=== PATIENT | female | born 1955 | race Caucasian/White ===

== ENCOUNTER 2021-01-30 13:45 | Outpatient (CLI) | payer MEDICARE, OTHER ==
[~2021-01-30 13:45] MED LIST: KETOROLAC TROMETHAMINE 15 MG/ML VIAL ONE
[2021-01-30] MEDS ORDERED: SPIR25TA PO (15:52)
[2021-01-30] MEDS ORDERED: ASPI-1420 PO (15:52)
[2021-01-30] MEDS ORDERED: ACET-868 PO (15:52)
[2021-01-30] MEDS ORDERED: LISI-768 PO (15:53)
[2021-01-30] MEDS ORDERED: BISA10SU11 RC (15:53)
[2021-01-30] MEDS ORDERED: GABA-532 PO (15:53)
[2021-01-30] MEDS ORDERED: METF-440 PO (15:53)
[2021-01-30] MEDS ORDERED: ENOX30DI SQ (15:53)
[2021-01-30] MEDS ORDERED: PANT40TA2 PO (15:53)
[2021-01-30] MEDS ORDERED: INSU100V42 SQ (15:53)
[2021-01-30] MEDS ORDERED: POLY17PO4 PO (15:53)
[2021-01-30] MEDS ORDERED: MULT-447 PO (15:53)
[2021-01-30] MEDS ORDERED: HYDR-4209 PO (15:53)
[2021-01-30] MEDS ORDERED: FURO-144 PO (15:53)
[2021-01-30] MEDS ORDERED: INSU100V7 SQ (15:53)
[2021-01-30] MEDS ORDERED: LEVO25TA9 PO (15:53)
[2021-01-30] MEDS ORDERED: HYDR-3980 PO (15:53)
[2021-01-30] MEDS ORDERED: DOCU-141 PO (15:53)
[2021-02-06] MEDS ORDERED: VANC750F2 IV (09:18)
== END 2021-01-30 23:59 | disposition home or self-care (01) ==
LOC: WOU 13:45
PROVIDERS: ATTEND Podiatrist Foot & Ankle Surgery
DX: T81.89XA Other complications of procedures, not elsewhere classified, initial encounter (principal); L97.315 Non-pressure chronic ulcer of right ankle with muscle involvement without evidence of necrosis; L97.512 Non-pressure chronic ulcer of other part of right foot with fat layer exposed; L97.322 Non-pressure chronic ulcer of left ankle with fat layer exposed; E11.42 Type 2 diabetes mellitus with diabetic polyneuropathy; L03.116 Cellulitis of left lower limb; L03.115 Cellulitis of right lower limb; M86.272 Subacute osteomyelitis, left ankle and foot; M86.271 Subacute osteomyelitis, right ankle and foot; R60.0 Localized edema; Z79.4 Long term (current) use of insulin
CPT/HCPCS: 11042; 11043; J1885

== ENCOUNTER 2021-01-30 15:11 | Inpatient (IN) | payer MEDICARE, OTHER ==
[~2021-01-30] VITALS: Ht 157.5 cm; Wt 109.8 kg
--- NOTE | 2021-01-30 15:40 | NUR ---
PT SENT BY DR. JENKINS FOR BILAT FOOT CELLULITIS. PT WAS NOTED WITH BILAT LOWER EXTREMETIES SWELLING. NOTED WOUND ON THE R FOOT DORSAL ASPECT AND L FOOT NOTED WITH WOUNDS ON DORSAL ASPECT AND EXT MALLELOUS AREA. WAS AT THE BEDSIDE FOR EVAL. ORDERS RECEIVED, NOTED AND CARRIED OUT
--- NOTE | 2021-01-30 15:45 | NUR ---
US AT BEDSIDE.
--- NOTE | 2021-01-30 15:51 | NUR ---
COVID SWAB DONE AND SENT TO LAB
[2021-01-30] MEDS ORDERED: ASPI-1420 PO (15:52)
[2021-01-30] MEDS ORDERED: SPIR25TA PO (15:52)
[2021-01-30] MEDS ORDERED: ACET-868 PO (15:52)
[2021-01-30] MEDS ORDERED: METF-440 PO (15:53)
[2021-01-30] MEDS ORDERED: HYDR-3980 PO (15:53)
[2021-01-30] MEDS ORDERED: LISI-768 PO (15:53)
[2021-01-30] MEDS ORDERED: HYDR-4209 PO (15:53)
[2021-01-30] MEDS ORDERED: DOCU-141 PO (15:53)
[2021-01-30] MEDS ORDERED: GABA-532 PO (15:53)
[2021-01-30] MEDS ORDERED: LEVO25TA9 PO (15:53)
[2021-01-30] MEDS ORDERED: POLY17PO4 PO (15:53)
[2021-01-30] MEDS ORDERED: INSU100V42 SQ (15:53)
[2021-01-30] MEDS ORDERED: PANT40TA2 PO (15:53)
[2021-01-30] MEDS ORDERED: BISA10SU11 RC (15:53)
[2021-01-30] MEDS ORDERED: INSU100V7 SQ (15:53)
[2021-01-30] MEDS ORDERED: MULT-447 PO (15:53)
[2021-01-30] MEDS ORDERED: FURO-144 PO (15:53)
[2021-01-30] MEDS ORDERED: ENOX30DI SQ (15:53)
[2021-01-30 16:20] LABS: BASOPHILS % (AUTO) 0.9 % (0.0-2.0); EOSINOPHILS % (AUTO) 2.6 % (0.0-6.0); HEMATOCRIT 27 % (33-45); HEMOGLOBIN 8.5 g/dL (11.5-14.8); LYMPHOCYTES # (AUTO) 1.1 /CMM (0.8-4.8); LYMPHOCYTES % (AUTO) 22.8 % (20.0-44.0); MEAN CORPUSCULAR HGB CONC 31 g/dl (31.0-36.0); MEAN CORPUSCULAR VOLUME 78 fL (82-100); MONOCYTES # (AUTO) 0.4 /CMM (0.1-1.30); MONOCYTES % (AUTO) 8.8 % (2.0-12.0); NEUTROPHILS # (AUTO) 3.1 /CMM (1.8-8.9); NEUTROPHILS % (AUTO) 64.9 % (43.0-81.0); PLATELET COUNT (AUTO) 133 /CMM (150-450); WHITE BLOOD COUNT (AUTO) 4.7 K/uL (4.3-11.0)
[2021-01-30] MEDS ORDERED: VANCOMYCIN 1 GM VIAL ONE (16:22)
[2021-01-30] MEDS ORDERED: PIPERACILLIN /TAZOBACTAM 3.375 G VIAL IV ONE (16:22)
[2021-01-30] MEDS ORDERED: PIPERACILLIN /TAZOBACTAM 3.375 G in IV D5W 50 ML IV ONE (16:30)
[2021-01-30] MEDS ORDERED: IV NS 0.9% 1,000 ML BAG IV ONE (16:30)
[2021-01-30] MEDS ORDERED: VANCOMYCIN 1 GM in IV D5W 250 ML IV ONE (16:30)
--- NOTE | 2021-01-30 16:38 | NUR ---
BACK FROM RADIOLOGY
[2021-01-30 16:50] LABS: CALCIUM, SERUM 8.1 mg/dL (8.5-10.1); CREATININE 0.8 mg/dL (0.6-1.3); POTASSIUM 4.1 mmol/L (3.5-5.1)
--- NOTE | 2021-01-30 16:58 | NUR ---
PAGED [facility].
[2021-01-30] MEDS ORDERED: BISACODYL SUPP (10 MG) 10 MG/SUPP.RECT SUPP.RECT RC PRN (18:00)
[2021-01-30] MEDS ORDERED: MAG HYDROX/AL HYDROX/SIMETH 30 ML UDC PO PRN (18:00)
[2021-01-30] MEDS ORDERED: DEXTROSE 50%-WATER 50 ML DISP.SYRIN IV PRN (18:00)
[2021-01-30] MEDS ORDERED: Z GUARD REMEDY 2 OZ OINT TP PRN (18:00)
[2021-01-30] MEDS ORDERED: HYDROCODONE/APAP 5/325MG TABLET PO PRN (18:00)
[2021-01-30] MEDS ORDERED: ACETAMINOPHEN 325 MG TABLET PO PRN ×2 (18:00)
[2021-01-30] MEDS ORDERED: MAGNESIUM HYDROXIDE 30 ML UDC PO PRN (18:00)
--- NOTE | 2021-01-30 18:18 | NUR ---
REPORT GIVEN TO TEO YEN FOR MALVIN
--- NOTE | 2021-01-30 18:59 | NUR ---
PATIENT TRANSFERRED TO ROOM 307 VIA ACLS PROTOCOL. IN NO DISTRESS.
[2021-01-30 20:00] VITALS: BP 128/78
--- NOTE | 2021-01-30 21:04 | NUR ---
MS/TELE/RN AT INITIAL SHIFT ROUNDING AT 1930, RECEIVED PATIENT IN BED AWAKE, ALERT, ORIENTED, COMFORTABLE, NO C/O PAIN, NO DISTRESS NOTED. AT 1999, ADMISSION DONE, INFORMATIONS OBTAINED FROM THE PATIENT, PHYSICAL ASSESSMENT DONE, PHOTOS TAKEN ON WOUNDS AND RASHES WITH THE PATIENT'S CONSENT, PLAN OF CARE DISCUSSED WITH THE PATIENT AND VERBALISED UNDERSTANDING AND AGREEMENT TO THE PLAN, FALL PRECAUTIONS IMPLEMENTED PER PROTOCOL, TAUGHT THE PATIENT HOW TO USE THE CALL LIGHT AND PLACED IT AT BEDSIDE WITHIN REACH, ENCOURAGED PATIENT TO CALL FOR ANY ASSISTANCE FOR SAFETY. PATIENT WAS SEEN BY ISAURA JENKINS NP. WILL MONITOR.
[2021-01-30] MEDS ORDERED: PIPERACILLIN /TAZOBACTAM 3.375 G in IV D5W 100 ML IV SCH (22:00)
[2021-01-30] MEDS: CEFEPIME 2 GM in IV D5W 100 ML IV SCH (22:03)
[2021-01-30] MEDS: BLOOD SUGAR DIAGNOSTIC 1 EACH STRIP IN SCH (22:05)
[2021-01-30] MEDS: ENOXAPARIN SODIUM 40 MG/0.4 ML DISP.SYRIN SQ SCH (22:09)
[2021-01-30] MEDS: INSULIN GLARGINE, 100 UNIT/ML CARTRIDGE SQ SCH (22:34)
--- NOTE | 2021-01-31 00:43 | NUR ---
MS/TELE/RN PATIENT IS SLEEPING AT THIS TIME, APPEAR COMFORTABLE, NO SIGNS OF DISTRESS NOTED, CALL LIGHT IN REACH, WILL CONTINUE TO MONITOR.
--- NOTE | 2021-01-31 01:58 | NUR ---
RT NOTE PT REFUSED EKG AT THIS TIME. PT WANTS TO SLEEP. TEO MCNEIL NOTIFIED AND IS AWARE.
[2021-01-31 05:59] LABS: BASOPHILS % (AUTO) 1.1 % (0.0-2.0); EOSINOPHILS % (AUTO) 2.5 % (0.0-6.0); HEMATOCRIT 24 % (33-45); HEMOGLOBIN 7.8 g/dL (11.5-14.8); LYMPHOCYTES # (AUTO) 0.7 /CMM (0.8-4.8); LYMPHOCYTES % (AUTO) 24.7 % (20.0-44.0); MEAN CORPUSCULAR HGB CONC 32 g/dl (31.0-36.0); MEAN CORPUSCULAR VOLUME 78 fL (82-100); MONOCYTES # (AUTO) 0.3 /CMM (0.1-1.30); MONOCYTES % (AUTO) 10.1 % (2.0-12.0); NEUTROPHILS # (AUTO) 1.8 /CMM (1.8-8.9); NEUTROPHILS % (AUTO) 61.6 % (43.0-81.0); PLATELET COUNT (AUTO) 103 /CMM (150-450); WHITE BLOOD COUNT (AUTO) 2.9 K/uL (4.3-11.0)
[2021-01-31] MEDS: VANCOMYCIN 1 GM in IV D5W 250ml IV SCH ×2 (06:04→17:22)
[2021-01-31] MEDS: INSULIN REGULAR, HUMAN 100 UNIT/ML 3 ML VIAL SQ PRN ×3 (06:40→17:16)
[2021-01-31] MEDS: BLOOD SUGAR DIAGNOSTIC 1 EACH STRIP IN SCH ×4 (06:41→21:40)
--- NOTE | 2021-01-31 06:52 | NUR ---
MS/TELE/RN PATIENT APPEAR SLEEPING AT THIS TIME, APPEAR COMFORTABLE, NO SIGNS OF DISTRESS NOTED, CALL LIGHT IN REACH, ALL NEEDS ATTENDED AT THIS TIME, WILL CONTINUE TO MONITOR.
[2021-01-31 07:00] LABS: ALBUMIN 1.5 g/dL (3.4-5.0); BILIRUBIN,TOTAL 1.2 mg/dL (0.2-1.0); CALCIUM, SERUM 7.8 mg/dL (8.5-10.1); CREATININE 0.7 mg/dL (0.6-1.3); MAGNESIUM 1.9 mg/dL (1.8-2.4); PHOSPHORUS 3.7 mg/dL (2.5-4.9); POTASSIUM 4.4 mmol/L (3.5-5.1)
[2021-01-31] MEDS: PANTOPRAZOLE 40 MG TABLET.DR PO SCH (07:13)
[2021-01-31] MEDS: LEVOTHYROXINE SODIUM 25 MCG TABLET PO SCH (07:17)
[2021-01-31 07:24] LABS: THYROID STIMULATING HORMONE 3.347 uIU/mL (0.358-3.74)
--- NOTE | 2021-01-31 07:24 | NUR ---
MS RN OPENING NOTES PATIENT RECEIVED AWAKE IN BED IN NO ACUTE SIGNS OF DISTRESS. HOB ELEVATED. A/O X4. ABLE TO MAKE NEEDS KNOWN, DENIES PAIN OR ANY DISCOMFORTS AT THIS TIME. ON ROOM AIR, BREATHING EVEN AND UNLABORED. DOUBLE LUMEN ILA PICC LINE INTACT, PATENT AND FLUSHES WELL. SAFETY MEASURES IN PLACE: CALL LIGHT WITHIN REACH, BED IN LOCKED AND LOWEST POSITION, SIDE RAILS UP X2. ENCOURAGED PATIENT TO CALL WHEN FOR ASSISTANCE. WILL MONITOR PATIENT ACCORDINGLY
[2021-01-31 08:00] VITALS: BP 114/58
[2021-01-31] MEDS: GABAPENTIN 100 MG CAPSULE PO SCH ×2 (08:45→16:40)
[2021-01-31] MEDS: METFORMIN 500 MG TABLET PO SCH ×2 (08:45→16:40)
[2021-01-31] MEDS: FUROSEMIDE 40 MG TABLET PO SCH (08:45)
[2021-01-31] MEDS: DOCUSATE SODIUM 100 MG CAPSULE PO SCH ×2 (08:45→16:39)
[2021-01-31] MEDS: SPIRONOLACTONE 25 MG TABLET PO SCH (08:45)
[2021-01-31] MEDS: LISINOPRIL (5MG) 5 MG TABLET PO SCH ×2 (08:46→16:40)
[2021-01-31] MEDS: POLYETHYLENE GLYCOL 3350 17 GM POWD.PACK PO SCH (08:46)
[2021-01-31] MEDS: ASPIRIN EC 81 MG TABLET.DR PO SCH (08:52)
[2021-01-31] MEDS: CEFEPIME 2 GM in IV D5W 100 ML IV SCH ×2 (08:53→20:33)
[2021-01-31] MEDS ORDERED: ENOXAPARIN SODIUM 30 MG/0.3 ML DISP.SYRIN SQ SCH (09:00)
[2021-01-31] MEDS ORDERED: CEFEPIME 2 GM in IV D5W 100 ML IV SCH (09:00)
--- NOTE | 2021-01-31 10:08 | NUR ---
WOUND CARE CONSULT: PT PRESENTS WITH DRY INTACT DRESSINGS TO BILATERAL FEET/LOWER LEGS, PRESENT ON ADMISSION. LOWER EXTREMITY WOUND PHOTOS IN CHART, PRESENT ON ADMISSION. PT AWAITING VISIT BY DR LEMONS. DR LEMONS NOTIFIED OF PT ROOM NUMBER. PT PRESENTS WITH RASH TO ABDOMINAL/GROIN FOLDS AND PERINEUM, PRESENT ON ADMISSION. RECOMMENDATIONS MADE FOR SKIN PROTECTION. DISCUSSED WITH NURSING STAFF. MD IN AGREEMENT WITH PLAN OF CARE.
[2021-01-31 16:00] VITALS: BP 102/56
--- NOTE | 2021-01-31 16:07 | NUR ---
RN NOTES WOUND SPECIMENS FOR BILATERAL FEET WOUNDS COLLECTED AND CALLED LAB TO PICK-UP THEM UP.
[2021-01-31] MEDS: CLOTRIMAZOLE 1% 15 GM TUBE TP SCH (16:45)
--- NOTE | 2021-01-31 18:50 | NUR ---
MS RN CLOSING NOTES PATIENT RESTING IN BED AND WATCHING TV AT THIS TIME. A/O X4. ABLE TO MAKE NEEDS KNOWN. TOLERATING ROOM AIR WITH NO ACUTE RESPIRATORY DISTRESS NOTED DURING SHIFT. DOUBLE LUMEN ILA PICC LINE INTACT, PATENT AND FLUSHES WELL. DRESSING ON B/L FEET C/D/I. SAFETY MEASURES KEPT IN PLACE: CALL LIGHT WITHIN REACH, BED IN LOCKED AND LOWEST POSITION, SIDE RAILS UP X2. CALL LIGHT AND BEDSIDE TABLE W/IN EASY REACH OF PT. ENCOURAGED PATIENT TO CALL FOR ANY ASSISTANCE. ALL NEEDS AND CARE ATTENDED WELL. WILL ENDORSE MALVIN TO TECHNICAL BUYER NURSE.
--- NOTE | 2021-01-31 19:30 | NUR ---
MS RN OPENING NOTES RECEIVED PATIENT IN BED, ASLEEP NOT IN ANY FORM OF ACUTE DISTRESS NOTED. ON ROOM AIR TOLERATING WELL, NO ACUTE RESPIRATORY DISTRESS NOTED. WITH DOUBLE LUMEN ILA PICC LINE INTACT, PATENT AND FLUSHES WELL, NO REDNESS NOTED. DRESSING ON B/L FEET NOTED, DRY AND INTACT. SAFETY MEASURES OBSERVED: CALL LIGHT WITHIN EASY REACH, BED IN LOCKED AND LOWEST POSITION, SIDE RAILS UP X2. CALL LIGHT AND BEDSIDE TABLE W/IN EASY REACH OF PT. NO COMPLAINTS OF PAIN AT THIS TIME. WILL CONTINUE TO MONITOR PATIENT'S STATUS.
[2021-01-31 20:00] VITALS: BP 108/56
[2021-01-31 20:01] VITALS: BP 108/56
[2021-01-31] MEDS: ENOXAPARIN SODIUM 40 MG/0.4 ML DISP.SYRIN SQ SCH (20:35)
[2021-01-31] MEDS: INSULIN GLARGINE, 100 UNIT/ML CARTRIDGE SQ SCH (21:39)
--- NOTE | 2021-01-31 21:40 | NUR ---
RN NOTES CHECKED PATIENT'S BLOOD SUGAR ORDERED. RESULT OF 134, DUE INSULIN GLARGINE GIVEN ORDERED.
[2021-02-01 02:00] VITALS: BP 113/64
--- NOTE | 2021-02-01 06:38 | NUR ---
MS RN CLOSING NOTES PATIENT IN BED, AWAKE, A&O X 4. ABLE TO LET NEEDS KNOWN, TOLERATING ROOM AIR, PICC LINE ON ILA INTACT AND FLUSHES WELL. SAFETY PRECAUTIONS OBSERVED AND MAINTAINED DURING THE SHIFT. CALL LIGHT WITHIN EASY REACH, SIDE RAILS UP X 2. NEEDS ATTENDED AND MET. DUE MEDS GIVEN ORDERED. NO COMPLAINTS OF PAIN AT THIS TIME. STILL AWAITING FOR VANCO TROUGH RESULT. ENDORSED TO MORNING SHIFT NURSE FOR MALVIN.
[2021-02-01] MEDS: LEVOTHYROXINE SODIUM 25 MCG TABLET PO SCH (07:07)
[2021-02-01 07:12] LABS: CALCIUM, SERUM 7.5 mg/dL (8.5-10.1); CREATININE 0.8 mg/dL (0.6-1.3); POTASSIUM 3.9 mmol/L (3.5-5.1)
--- NOTE | 2021-02-01 07:14 | NUR ---
MS RN OPENING NOTES RECEIVED PATIENT AWAKE IN BED. HOB ELEVATED. A/O X4, ABLE TO MAKE NEEDS KNOWN, DENIES PAIN OR ANY DISCOMFORTS AT THIS TIME. ON ROOM AIR, BREATHING EVEN AND UNLABORED, NO SOB NOTED. DOUBLE LUMEN ILA PICC LINE INTACT, PATENT AND FLUSHES WELL. SAFETY MEASURES IN PLACE: BED LOCKED AND LOWEST POSITION, SIDE RAILS UP X2. CALL LIGHT WITHIN EASY REACH OF PT. ENCOURAGED PATIENT TO USE CALL LIGHT FOR ASSISTANCE. WILL CONTINUE TO MONITOR PATIENT ACCORDINGLY
[2021-02-01] MEDS: VANCOMYCIN 1 GM in IV D5W 250ml IV SCH (07:24)
[2021-02-01] MEDS: BLOOD SUGAR DIAGNOSTIC 1 EACH STRIP IN SCH ×4 (07:40→22:22)
[2021-02-01] MEDS: INSULIN REGULAR, HUMAN 100 UNIT/ML 3 ML VIAL SQ PRN ×3 (07:41→17:25)
[2021-02-01 08:00] VITALS: BP 98/48
[2021-02-01] MEDS: POLYETHYLENE GLYCOL 3350 17 GM POWD.PACK PO SCH (08:14)
[2021-02-01] MEDS: ASPIRIN EC 81 MG TABLET.DR PO SCH (08:15)
[2021-02-01] MEDS: DOCUSATE SODIUM 100 MG CAPSULE PO SCH ×2 (08:15→16:54)
[2021-02-01] MEDS: GABAPENTIN 100 MG CAPSULE PO SCH ×2 (08:15→16:55)
[2021-02-01] MEDS: METFORMIN 500 MG TABLET PO SCH ×2 (08:15→16:54)
[2021-02-01] MEDS: PANTOPRAZOLE 40 MG TABLET.DR PO SCH (08:15)
[2021-02-01] MEDS: FUROSEMIDE 40 MG TABLET PO SCH (08:15)
[2021-02-01] MEDS: SPIRONOLACTONE 25 MG TABLET PO SCH (08:15)
[2021-02-01] MEDS: LISINOPRIL (5MG) 5 MG TABLET PO SCH ×2 (08:16→16:55)
[2021-02-01] MEDS: CLOTRIMAZOLE 1% 15 GM TUBE TP SCH ×2 (08:16→16:56)
[2021-02-01] MEDS: CEFEPIME 2 GM in IV D5W 100 ML IV SCH ×2 (09:27→21:14)
--- NOTE | 2021-02-01 09:58 | NUR ---
MRI APPROVED,ATHLETE MANAGER NOTIFIED 6.30AM VIA TEXTED
--- NOTE | 2021-02-01 14:12 | NUR ---
RN NOTES PT FOR BLE EXTREMITIES EXCISIONAL DEBRIDEMENT AND APPLICATION OF WOUND VAC TOMORROW BY DR CRISTO CHAVEZ. PROCEDURE WAS EXPLAINED TO PT AND VERBALIZED UNDERSTANDING. PT SIGNED ALL CONSENTS AND FILED IN HER CHART. NPO TO BE ENFORCED POST MIDNIGHT. WILL ENDORSE.
[2021-02-01 16:00] VITALS: BP 127/69
[2021-02-01] MEDS: PROSOURCE / PROSTAT (PYXIS) 30 ML UDC PO SCH (16:52)
--- NOTE | 2021-02-01 17:00 | NUR ---
RN NOTES PT PICKED-UP FOR MRI OF B/L FEET AND RIGHT ANKLE VIA WHEELCHAIR.
[2021-02-01] MEDS: VANCOMYCIN HCL 0.75 GM in IV D5W 250 ML IV SCH (17:40)
--- NOTE | 2021-02-01 18:39 | NUR ---
MS RN CLOSING NOTES PATIENT IN BED AWAKE AND WATCHING TV AT THIS TIME. A/O X4. ABLE TO MAKE NEEDS KNOWN. PT FOR BLE EXCISIONAL DEBRIDEMENT BONE BIOPSY AND APPLICATION OF WOUND VAC TOMORROW BY DR LEMONS. NPO TO BE ENFORCED POST MIDNIGHT. pt TOLERATING ROOM AIR WITH NO ACUTE RESPIRATORY DISTRESS NOTED DURING SHIFT. DOUBLE LUMEN ILA PICC LINE INTACT, PATENT AND FLUSHES WELL. SAFETY MEASURES KEPT IN PLACE: CALL LIGHT WITHIN REACH, BED IN LOCKED AND LOWEST POSITION, SIDE RAILS UP X2. CALL LIGHT AND BEDSIDE TABLE W/IN EASY REACH OF PT. ENCOURAGED PATIENT TO CALL FOR ANY ASSISTANCE. ALL NEEDS AND CARE ATTENDED WELL. WILL ENDORSE MALVIN TO FLEXO FOLDER GLUER OPERATOR NURSE.
--- NOTE | 2021-02-01 19:30 | NUR ---
MS RN OPENING NOTES RECEIVED PATIENT IN BED, AWAKE, A&O X 4. ABLE TO LET NEEDS KNOWN, ON ROOM AIR TOLERATING WELL, NOTED WITH PICC LINE ON ILA INTACT AND FLUSHES WELL. NO REDNESS, NO S/SX OF INFILTRATION NOTED. NO COMPLAINTS OF PAIN AT THIS TIME. REDNESS ON PERINEAL AREA AND ABDOMINAL FOLDS NOTED. SAFETY PRECAUTIONS OBSERVED: BED ON LOWEST LOCKED POSITION, CALL LIGHT AND BEDSIDE TABLE WITHIN EASY REACH, SIDE RAILS UP X 2. INSTRUCTED PATIENT ON NPO POST MIDNIGHT, PATIENT VERBALIZED UNDERSTANDING. WILL CONTINUE TO MONITOR PATIENT'S CURRENT STATUS.
[2021-02-01 20:00] VITALS: BP 113/64
[2021-02-01 20:38] VITALS: BP 113/64
[2021-02-01] MEDS: ENOXAPARIN SODIUM 40 MG/0.4 ML DISP.SYRIN SQ SCH (21:00)
--- NOTE | 2021-02-01 21:00 | NUR ---
RN NOTES PATIENT HAS DUE LOVENOX 40 MG TO BE ADMINISTERED SUBCUTANEOUSLY, INFORM MD DR. GR REGARDING SCHEDULED PROCEDURE TOMORROW, DR. GR ACKNOWLEDGED WITH ORDER TO HOLD 2100 DOSE, CARRIED OUT.
[2021-02-01] MEDS: INSULIN GLARGINE, 100 UNIT/ML CARTRIDGE SQ SCH (22:22)
[2021-02-02] MEDS: VANCOMYCIN HCL 0.75 GM in IV D5W 250 ML IV SCH ×2 (05:20→18:09)
--- NOTE | 2021-02-02 06:30 | NUR ---
MS RN CLOSING NOTES PATIENT IN BED, AWAKE, A&O X 4, ABLE TO LET NEEDS KNOWN. ON ROOM AIR TOLERATING WELL, NO SOB NOTED. FOR BLE EXCISIONAL DEBRIDEMENT BONE BIOPSY AND APPLICATION OF WOUND VAC TODAY AT 9AM BY DR LEMONS. REINFORCED NPO POST MIDNIGHT. PATIENT VERBALIZED UNDERSTANDING OF INSTRUCTIONS GIVEN. NO COMPLAINTS OF PAIN AT THIS TIME. ILA PICC LINE PATENT AND FLUSHES WELL. SAFETY PRECAUTIONS OBSERVED AND MAINTAINED DURING THE SHIFT: BED ON LOWEST LOCKED POSITION, SIDE RAILS UP X 2, CALL LIGHT WITHIN EASY REACH. ALL NEEDS ATTENDED AND MET. DUE MEDS GIVEN ORDERED. WILL ENDORSE TO MORNING SHIFT NURSE FOR CONTINUITY OF CARE.
[2021-02-02 06:33] LABS: CALCIUM, SERUM 7.6 mg/dL (8.5-10.1); CREATININE 0.8 mg/dL (0.6-1.3); POTASSIUM 3.9 mmol/L (3.5-5.1)
[2021-02-02] MEDS: BLOOD SUGAR DIAGNOSTIC 1 EACH STRIP IN SCH ×4 (06:40→22:36)
[2021-02-02] MEDS: INSULIN REGULAR, HUMAN 100 UNIT/ML 3 ML VIAL SQ PRN ×2 (06:43→17:09)
[2021-02-02] MEDS ORDERED: FENTANYL PF 250MCG/5ML AMPUL ONE (07:13)
[2021-02-02] MEDS ORDERED: MIDAZOLAM HCL 2 MG/2ML VIAL ONE (07:13)
[2021-02-02] MEDS: LEVOTHYROXINE SODIUM 25 MCG TABLET PO SCH (07:30)
[2021-02-02] MEDS: PANTOPRAZOLE 40 MG TABLET.DR PO SCH (07:30)
[2021-02-02] MEDS ORDERED: BUPIVACAINE MPF 0.5% W/EPI INJ 30 ML VIAL ONE (08:30)
[2021-02-02] MEDS: CEFEPIME 2 GM in IV D5W 100 ML IV SCH ×2 (08:30→20:56)
[2021-02-02] MEDS ORDERED: LIDOCAINE 1% INJ 50 ML MDV IJ ONE (08:30)
--- NOTE | 2021-02-02 08:40 | NUR ---
m/s cloth boil off machine operator: notes pt was taken to o.r. with iv antibiotic accompanied by 3 o.r. staff via bed with chart at this time.
[2021-02-02] MEDS: ASPIRIN EC 81 MG TABLET.DR PO SCH (09:00)
[2021-02-02] MEDS: DOCUSATE SODIUM 100 MG CAPSULE PO SCH ×2 (09:00→16:46)
[2021-02-02] MEDS: POLYETHYLENE GLYCOL 3350 17 GM POWD.PACK PO SCH (09:00)
[2021-02-02] MEDS: SPIRONOLACTONE 25 MG TABLET PO SCH (09:00)
[2021-02-02] MEDS: LISINOPRIL (5MG) 5 MG TABLET PO SCH ×2 (09:00→16:46)
[2021-02-02] MEDS: GABAPENTIN 100 MG CAPSULE PO SCH ×2 (09:00→16:46)
[2021-02-02] MEDS: CLOTRIMAZOLE 1% 15 GM TUBE TP SCH ×2 (09:00→16:46)
[2021-02-02] MEDS: PROSOURCE / PROSTAT (PYXIS) 30 ML UDC PO SCH ×3 (09:00→16:46)
[2021-02-02] MEDS: METFORMIN 500 MG TABLET PO SCH ×2 (09:00→16:46)
[2021-02-02] MEDS: FUROSEMIDE 40 MG TABLET PO SCH (09:00)
--- NOTE | 2021-02-02 09:13 | NUR ---
m/s laborer shipyard: notes pt absent from unit, pt still in surgery.
[2021-02-02 11:05] VITALS: BP 104/56
--- NOTE | 2021-02-02 11:05 | NUR ---
m/s petroleum inspector supervisor: notes received pt back from recovery room with dx: s/p ble debridement with wound vac to right foot. wound vac attached to right foot at 125mmhg at continuous mode with ble surgical dressing in place. pt refused her lunch, stated, "i want to rest a while."
[2021-02-02 11:20] VITALS: BP 99/54
[2021-02-02 11:50] VITALS: BP 90/52
--- NOTE | 2021-02-02 12:00 | NUR ---
m/s food preparation supervisor: notes pt sounds asleep. no distress noted. will continue to monitor.
[2021-02-02 12:50] VITALS: BP 88/54
--- NOTE | 2021-02-02 14:00 | NUR ---
m/s salesperson hosiery: notes sleeping at interval. no distress noted.
[2021-02-02 14:50] VITALS: BP 101/56
--- NOTE | 2021-02-02 18:40 | NUR ---
m/s emg technician: notes pt refused her pm meds and insulin coverage. no c/o pain or any discomfort. wound vac remains in place to right foot at 125mmhg continuously. needs attended. no distress noted. instructed to call for assistance.
--- NOTE | 2021-02-02 19:00 | NUR ---
m/s contract lead: notes report given to aram (rn) for continuity of care.
--- NOTE | 2021-02-02 19:23 | NUR ---
MS RN NOTES PATIENT IN BED, AWAKE, A&O X 4, ABLE TO LET NEEDS KNOWN. ON ROOM AIR TOLERATING WELL, NO SOB NOTED. PT IS S/P BLE EXCISIONAL DEBRIDEMENT BONE BIOPSY AND APPLICATION OF WOUND VAC. NO COMPLAINTS OF PAIN AT THIS TIME. ILA PICC LINE PATENT AND FLUSHES WELL. SAFETY PRECAUTIONS OBSERVED AND MAINTAINED AT THSI TIME.BED ON LOWEST LOCKED POSITION, SIDE RAILS UP X 2, CALL LIGHT WITHIN EASY REACH. ALL NEEDS ATTENDED AND MET AT THIS TIME. WILL CONTINUE TO MONITOR.
[2021-02-02 20:00] VITALS: BP 83/44
[2021-02-02] MEDS: ENOXAPARIN SODIUM 40 MG/0.4 ML DISP.SYRIN SQ SCH (20:56)
[2021-02-02] MEDS: INSULIN GLARGINE, 100 UNIT/ML CARTRIDGE SQ SCH (22:39)
[2021-02-03] MEDS: HYDROCODONE/APAP 10/325MG TABLET PO PRN (01:30)
--- NOTE | 2021-02-03 02:07 | NUR ---
MS BRUCE NOTES DR GR MADE AWARE OF PATIENT EPISODE OF VOMITING,WITH NEW ORDER NOTED AND CARRIED OUT. Addendum: 02/04/21 at 0212 by DA UMAÑA RN EPISODE OF VOMITING HAPPEN @ AROUND 199902/03/21
[2021-02-03] MEDS: VANCOMYCIN HCL 0.75 GM in IV D5W 250 ML IV SCH ×2 (06:00→21:39)
[2021-02-03 06:17] LABS: CALCIUM, SERUM 7.7 mg/dL (8.5-10.1); POTASSIUM 4.1 mmol/L (3.5-5.1)
[2021-02-03] MEDS: BLOOD SUGAR DIAGNOSTIC 1 EACH STRIP IN SCH ×4 (06:53→21:58)
--- NOTE | 2021-02-03 07:03 | NUR ---
MS RN NOTES PATIENT IN BED, AWAKE, A&O X 4, ABLE TO LET NEEDS KNOWN. ON ROOM AIR TOLERATING WELL, NO SOB NOTED. PT IS S/P BLE EXCISIONAL DEBRIDEMENT BONE BIOPSY AND APPLICATION OF WOUND VAC. NO COMPLAINTS OF PAIN AT THIS TIME. ILA PICC LINE PATENT AND FLUSHES WELL. SAFETY PRECAUTIONS OBSERVED AND MAINTAINED AT THSI TIME.BED ON LOWEST LOCKED POSITION, SIDE RAILS UP X 2, CALL LIGHT WITHIN EASY REACH. ALL NEEDS ATTENDED AND MET AT THIS TIME. WILL ENDORSE CARE TO DAY SHIFT NURSE.
--- NOTE | 2021-02-03 07:04 | NUR ---
MS RN NOTES VANCO TROUGH 24 PER ORDER HOLD. WILL ENDORSE TO DAY SHIFT NURSE.
--- NOTE | 2021-02-03 07:35 | NUR ---
MS RN NOTES PATIENT RECEIVED IN BED, RESTING COMFORTABLY. ALERT AND ORIENTED X 4. NO RESPIRATORY DISTRESS NOTED, WITH EVEN NON-LABORED BREATHING, AND NO SOB. SKIN WARM AND DRY TO TOUCH, BILATERAL LOWER EXTREMITIES DRESSING INTACT. IV ACCESS INTACT AND PATENT. PATIENT HAS WOUND VAC. PATIENT DENIES PAIN OR DISCOMFORT AT THIS TIME. SAFETY PRECAUTIONS IMPLEMENTED WITH BED LOCKED, BILATERAL SIDE RAILS UP, BED IN THE LOWEST POSITION, AND CALL LIGHT WITHIN EASY REACH. WILL CONTINUE TO MONITOR PATIENT.
[2021-02-03 08:00] VITALS: BP 103/78
[2021-02-03] MEDS: CEFEPIME 2 GM in IV D5W 100 ML IV SCH ×2 (08:45→20:21)
[2021-02-03] MEDS: GABAPENTIN 100 MG CAPSULE PO SCH ×2 (08:46→16:50)
[2021-02-03] MEDS: PROSOURCE / PROSTAT (PYXIS) 30 ML UDC PO SCH ×3 (08:46→16:50)
[2021-02-03] MEDS: DOCUSATE SODIUM 100 MG CAPSULE PO SCH ×2 (08:46→16:46)
[2021-02-03] MEDS: FUROSEMIDE 40 MG TABLET PO SCH (08:46)
[2021-02-03] MEDS: ASPIRIN EC 81 MG TABLET.DR PO SCH (08:46)
[2021-02-03] MEDS: METFORMIN 500 MG TABLET PO SCH ×2 (08:46→16:46)
[2021-02-03] MEDS: LEVOTHYROXINE SODIUM 25 MCG TABLET PO SCH (08:46)
[2021-02-03] MEDS: SPIRONOLACTONE 25 MG TABLET PO SCH (08:46)
[2021-02-03] MEDS: POLYETHYLENE GLYCOL 3350 17 GM POWD.PACK PO SCH (08:46)
[2021-02-03] MEDS: PANTOPRAZOLE 40 MG TABLET.DR PO SCH (08:46)
[2021-02-03] MEDS: LISINOPRIL (5MG) 5 MG TABLET PO SCH ×2 (08:53→16:50)
[2021-02-03] MEDS: CLOTRIMAZOLE 1% 15 GM TUBE TP SCH ×2 (09:00→16:49)
[2021-02-03 16:00] VITALS: BP 111/61
--- NOTE | 2021-02-03 18:17 | NUR ---
MS RN NOTES PATIENT IN BED, RESTING COMFORTABLY. ALERT AND ORIENTED X 4 TURKISH SPEAKING. PATIENT ON ROOM AIR, WITH NO RESPIRATORY DISTRESS NOTED, WITH EVEN NON-LABORED BREATHING, AND NO SOB. SKIN KEPT CLEAN, WARM AND DRY TO TOUCH, BILATERAL LOWER EXTREMITIES DRESSING INTACT. MET ALL OF PATIENTS NEEDS. IV ACCESS INTACT AND PATENT ON RIGHT UPPER ARM. PATIENT HAS WOUND VAC. PATIENT DENIES PAIN OR DISCOMFORT AT THIS TIME. SAFETY PRECAUTIONS IMPLEMENTED WITH BED LOCKED, BILATERAL SIDE RAILS UP, BED IN THE LOWEST POSITION, BED ALARM ON AND CALL LIGHT WITHIN EASY REACH, WILL ENDORSE PLAN OF CARE TO UPCOMING RN.
[2021-02-03] MEDS: ONDANSETRON HCL/PF 4 MG/2 ML VIAL IVP PRN (18:36)
[2021-02-03 18:55] VITALS: BP 136/69
--- NOTE | 2021-02-03 18:55 | NUR ---
RN NOTES PATIENT HAD EPISODE OF NAUSEA AND PERSISTING VOMITING. ADMINISTERED PRN ZOFRAN ORDERED. PLACED PATIENT ON 2 LITERS OF OXYGEN VIA NASAL CANNULA. PATIENT STATING SHE IS COLD, TEMP. 98.0 F NO FEVER NOTED. INFORMED DR. ELEN MCKEON. ORDERED 500 CC OF IV NORMAL SALINE AND TO REPEAT IN 30 MINS IF PATIENT IS STILL VOMITING AND NAUSEA IS PRESENT. WILL CONTINUE TO MONITOR PATIENT.
[2021-02-03] MEDS ORDERED: IV NS 0.9% 500 ML IV ONE (19:00)
[2021-02-03] MEDS ORDERED: IV NS 0.9% 500 ML IV PRN (19:30)
--- NOTE | 2021-02-03 19:30 | NUR ---
MS RN OPENING NOTES RECEIVED PATIENT IN BED, ON HIGH BANUELOS'S POSITION. AWAKE, A&O X 4. PATIENT IS NAUSEOUS, ONGOING BOLUS OF NS 500 CC ON PATIENT'S ILA VIA PICC LINE, INFUSING WELL, NO SIGNS OF INFILTRATION NOTED. VS TAKEN AND RECORDED. WITH O2 VIA NC AT 3LPM SATURATING WELL AT 96%. NOTED WITH INTACT DRESSING ON BLE. WOUND VACC NOTED ON PATIENT'S RIGHT LOWER EXTREMITY AT 125 MMHG, NOTED WITH SEROSANGUINEOUS DRAINAGE. SAFETY PRECAUTIONS OBSERVED: BED ON LOWEST LOCKED POSITION, SIDE RAILS UP X 2. KEPT CALL LIGHT WITHIN EASY REACH. WILL CONTINUE TO MONITOR PATIENT'S CURRENT STATUS.
[2021-02-03 20:00] VITALS: BP 105/57
--- NOTE | 2021-02-03 20:00 | NUR ---
MS RN NOTES BLOOD PRESSURE READING OF 43/103,DENIES HEADACHE,AND WITH EPISODE OF NAUSEA AND VOMITINGZOFRAN IV IS NOT DUE YET.
[2021-02-03 21:27] VITALS: BP 140/103
--- NOTE | 2021-02-03 21:41 | NUR ---
RN NOTES PATIENT IS STILL NAUSEOUS AND HAS EPISODE OF VOMITING, INFORMED DR. GR WITH ORDER MADE AND CARRIED OUT.
[2021-02-03] MEDS: ENOXAPARIN SODIUM 40 MG/0.4 ML DISP.SYRIN SQ SCH (21:46)
[2021-02-03] MEDS: INSULIN GLARGINE, 100 UNIT/ML CARTRIDGE SQ SCH (21:47)
--- NOTE | 2021-02-03 21:53 | NUR ---
RN NOTES PATIENT'S TEMP OF 101.1. PRN TYLENOL GIVEN ORDERED.
--- NOTE | 2021-02-03 22:30 | NUR ---
RN NOTES RECHECKED PATIENT'S TEMP 99.5F.
--- NOTE | 2021-02-03 22:30 | NUR ---
TEO NOTES RECHECKED PATIENT'S TEMPERATURE, RESULT 97.8 Addendum: 02/04/21 at 0347 by CAYLA RADFORD RN ABOVE NOTES FOR 02/03/2021 0149
[2021-02-04] MEDS: HYDROCODONE/APAP 10/325MG TABLET PO PRN (06:10)
--- NOTE | 2021-02-04 06:30 | NUR ---
RN NOTES CHECKED PATIENT'S BLOOD SUGAR LEVEL, RESULT 146, REGULAR INSULIN 2 UNITS GIVEN ORDERED.
[2021-02-04] MEDS: BLOOD SUGAR DIAGNOSTIC 1 EACH STRIP IN SCH ×4 (06:32→22:11)
[2021-02-04] MEDS: INSULIN REGULAR, HUMAN 100 UNIT/ML 3 ML VIAL SQ PRN ×2 (06:38→11:33)
--- NOTE | 2021-02-04 06:44 | NUR ---
MS RN CLOSING NOTES PATIENT IN BED, AWAKE, A&O X4, NOT IN ANY FORM OF ACUTE DISTRESS. WITH O2 VIA NC AT 2LPM SATURATING WELL AT 96%, NO SOB NOTED. ILA PICC LINE, INTACT, PATENT AND FLUSHES WELL. NO REDNESS NOTED. VS WNL WITH BLE DRESSING DRY AND INTACT. WOUND VACC ON R LOWER LEG AT 125 MMHG DRAINING SEROSANGUINEOUS SECRETIONS. NO COMPLAINTS OF NAUSEA/VOMITING AT THIS TIME. SAFETY PRECAUTIONS OBSERVED AND MAINTAINED DURING THE SHIFT: BED ON LOWEST LOCKED POSITION, KEPT SIDE RAILS UPX2 AT ALL TIMES, KEPT CALL LIGHT WITHIN EASY REACH. WILL ENDORSE TO AM SHIFT NURSE FOR MALVIN.
--- NOTE | 2021-02-04 07:08 | NUR ---
MS RN OPENING NOTES PATIENT IN BED, AWAKE, A&O X4, NOT IN ANY FORM OF ACUTE DISTRESS. WITH O2 VIA NC AT 2LPM SATURATING WELL AT 96%, NO SOB NOTED. ILA PICC LINE, INTACT, PATENT AND FLUSHES WELL. NO REDNESS NOTED. VS WNL WITH BLE DRESSING DRY AND INTACT. WOUND VACC ON R LOWER LEG AT 125 MMHG DRAINING SEROSANGUINEOUS SECRETIONS. NO COMPLAINTS OF NAUSEA/VOMITING AT THIS TIME. SAFETY PRECAUTIONS OBSERVED BED ON LOWEST LOCKED POSITION, KEPT SIDE RAILS UPX2 AT ALL TIMES, KEPT CALL LIGHT WITHIN EASY REACH AND ANSWERED PROMPTLY
[2021-02-04 07:58] LABS: CALCIUM, SERUM 7.7 mg/dL (8.5-10.1); CREATININE 1.1 mg/dL (0.6-1.3); POTASSIUM 4.5 mmol/L (3.5-5.1)
[2021-02-04] MEDS: CEFEPIME 2 GM in IV D5W 100 ML IV SCH ×2 (08:43→20:16)
[2021-02-04] MEDS: SPIRONOLACTONE 25 MG TABLET PO SCH (08:45)
[2021-02-04] MEDS: LEVOTHYROXINE SODIUM 25 MCG TABLET PO SCH (08:45)
[2021-02-04] MEDS: DOCUSATE SODIUM 100 MG CAPSULE PO SCH ×2 (08:45→16:45)
[2021-02-04] MEDS: FUROSEMIDE 40 MG TABLET PO SCH (08:45)
[2021-02-04] MEDS: ASPIRIN EC 81 MG TABLET.DR PO SCH (08:45)
[2021-02-04] MEDS: PANTOPRAZOLE 40 MG TABLET.DR PO SCH (08:45)
[2021-02-04] MEDS: POLYETHYLENE GLYCOL 3350 17 GM POWD.PACK PO SCH (08:46)
[2021-02-04] MEDS: LISINOPRIL (5MG) 5 MG TABLET PO SCH ×2 (08:46→16:46)
[2021-02-04] MEDS: METFORMIN 500 MG TABLET PO SCH ×2 (08:46→16:46)
[2021-02-04] MEDS: CLOTRIMAZOLE 1% 15 GM TUBE TP SCH ×2 (08:47→16:47)
[2021-02-04] MEDS: GABAPENTIN 100 MG CAPSULE PO SCH ×2 (08:47→16:46)
[2021-02-04] MEDS: PROSOURCE / PROSTAT (PYXIS) 30 ML UDC PO SCH ×3 (08:47→16:47)
[2021-02-04] MEDS: METOCLOPRAMIDE HCL 10 MG/2 ML VIAL IV PRN (16:45)
--- NOTE | 2021-02-04 18:57 | NUR ---
MS RN CLOSING NOTES PATIENT IN BED, AWAKE, A&O X4, NOT IN ANY FORM OF ACUTE DISTRESS. WITH O2 VIA NC AT 2LPM SATURATING WELL AT 96%, NO SOB NOTED. ILA PICC LINE, INTACT, PATENT AND FLUSHES WELL. NO REDNESS NOTED. VS WNL WITH BLE DRESSING DRY AND INTACT. WOUND VACC ON R LOWER LEG AT 125 MMHG DRAINING SEROSANGUINEOUS SECRETIONS. COMPLAINTS OF NAUSEA/VOMITING AT THIS TIME, PT REQUESTS BASIN BE KEPT BEDSIDE. SAFETY PRECAUTIONS OBSERVED BED ON LOWEST LOCKED POSITION, KEPT SIDE RAILS UPX2 AT ALL TIMES, KEPT CALL LIGHT WITHIN EASY REACH AND ANSWERED PROMPTLY
--- NOTE | 2021-02-04 19:30 | NUR ---
RN OPENING NOTE PATIENT IN BED, AWAKE. A/O X 4, COMPLAINS OF NAUSEA AND PATIENT IS VOMITING. DRESSING PRESENT ON BILATERAL LOWER EXTREMITY, WOUND VAC PRESENT ON THE LEFT EXTREMITY. BREATHING EVEN AND UNLABORED, DOES NOT SEEM TO BE IN ANY APPARENT DISTRESS. IV ACCESS INTACT. SAFETY MEASURES IN PLACE: BED LOCKED AND LOWEST POSITION, SIDE RAILS UP, CALL LIGHT WITHIN REACH. WILL MONITOR PATIENT CLOSELY.
[2021-02-04 20:00] VITALS: BP 114/60
--- NOTE | 2021-02-04 20:00 | NUR ---
RN NOTE DRESSING PRESENT ON BOTH LOWER EXTREMITY AND WOUND VAC PRESENT ON THE RIGHT FOOT. WILL NOT BE ABLE TO TAKE A PICTURE OF THE WOUNDS ON THE LOWER EXTREMITY, ADVICED BY CHARGE NURSE SARAH PT S/P WOUND DEBRIDEMENT 02/02. WILL TAKE A PICTURE OF OTHER SKIN ISSUES.
[2021-02-04] MEDS: ONDANSETRON HCL/PF 4 MG/2 ML VIAL IVP PRN (20:16)
--- NOTE | 2021-02-04 20:16 | NUR ---
ZOFRAN GIVEN D/T NAUSEA AND VOMITTING. WILL REASSESS EFFECTIVENESS.
[2021-02-04] MEDS: VANCOMYCIN HCL 0.75 GM in IV D5W 250 ML IV SCH (21:34)
[2021-02-04] MEDS: ENOXAPARIN SODIUM 40 MG/0.4 ML DISP.SYRIN SQ SCH (21:47)
[2021-02-04] MEDS: INSULIN GLARGINE, 100 UNIT/ML CARTRIDGE SQ SCH (22:00)
--- NOTE | 2021-02-04 22:11 | NUR ---
PATIENT STILL HAVING NAUSEA AND VOMITING, BS WAS 157 MG/DL. LANTUS NOT GIVEN D/T PATIENT NOT BEING ABLE TO EAT OR DRINK WITHOUT THROWING UP. CHARGE NURSE AWARE.
[2021-02-05] MEDS ORDERED: LORAZEPAM INJ 2 MG/ML VIAL IV PRN (00:30)
[2021-02-05] MEDS: HYDROCODONE/APAP 10/325MG TABLET PO PRN (01:52)
--- NOTE | 2021-02-05 01:52 | NUR ---
patient complaining of 10/10 pain on the leg. norco 10/325 given.
[2021-02-05] MEDS: METOCLOPRAMIDE HCL 10 MG/2 ML VIAL IV PRN (03:36)
--- NOTE | 2021-02-05 03:36 | NUR ---
REGLAN GIVEN FOR NAUSEA AND VOMITING. WILL RE-ASSESS EFFECTIVENESS.
[2021-02-05] MEDS ORDERED: HYDROCODONE/APAP 10/325MG TABLET PO PRN (05:00)
[2021-02-05] MEDS: INSULIN REGULAR, HUMAN 100 UNIT/ML 3 ML VIAL SQ PRN ×2 (06:45→17:37)
--- NOTE | 2021-02-05 06:45 | NUR ---
RN CLOSING NOTE BS 148 MG/DL, NO COVERAGE GIVEN PATIENT IS REFUSING TO EAT D/T NAUSEA AND VOMITING. PATIENT'S BREATHING EVEN AND UNLABORED, TOLERATING ROOM AIR. NO COMPLAINS OF PAIN AT THIS TIME. DRESSING ON BILATERAL LOWER EXTREMITY REMAINS CLEAN, DRY, AND INTACT. WOUND TX PROVIDED. ALL NEEDS MET AND ATTENDED, ALL ORDERS CARRIED OUT. SAFETY MEASURES MAINTAINED. WILL ENDORSE TO DAY SHIFT NURSE FOR MALVIN.
[2021-02-05] MEDS: BLOOD SUGAR DIAGNOSTIC 1 EACH STRIP IN SCH ×4 (06:48→23:34)
[2021-02-05] MEDS: LEVOTHYROXINE SODIUM 25 MCG TABLET PO SCH (07:30)
[2021-02-05] MEDS: PANTOPRAZOLE 40 MG TABLET.DR PO SCH (07:30)
--- NOTE | 2021-02-05 07:43 | NUR ---
MS RN OPENING NOTES RECEIVED PATIENT IN BED, ASLEEP. PATIENT ON ROOM AIR; BREATHING EVEN AND UNLABORED AT THIS TIME. NO S/S OF PAIN SUCH FACIAL GRIMACING, GUARDING OR MOANING NOTED. R FOOT WOUND VAC PRESENT. ILA PICC IN PLACE AND INTACT AT TKO 10 MLS. SAFETY PRECAUTIONS IN PLACE; BED IN LOW POSITION AND LOCKED, RAILS UP X2, CALL LIGHT WITHIN REACH. WILL CONTINUE TO MONITOR PATIENT.
[2021-02-05 08:00] VITALS: BP 90/46
[2021-02-05] MEDS: ASPIRIN EC 81 MG TABLET.DR PO SCH (08:33)
[2021-02-05] MEDS: METFORMIN 500 MG TABLET PO SCH ×2 (08:33→16:18)
[2021-02-05] MEDS: DOCUSATE SODIUM 100 MG CAPSULE PO SCH ×2 (08:33→16:18)
[2021-02-05] MEDS: FUROSEMIDE 40 MG TABLET PO SCH (08:37)
[2021-02-05] MEDS: SPIRONOLACTONE 25 MG TABLET PO SCH (08:37)
[2021-02-05] MEDS: POLYETHYLENE GLYCOL 3350 17 GM POWD.PACK PO SCH (08:37)
[2021-02-05] MEDS: LISINOPRIL (5MG) 5 MG TABLET PO SCH ×2 (08:37→16:19)
[2021-02-05] MEDS: GABAPENTIN 100 MG CAPSULE PO SCH ×2 (08:37→16:19)
[2021-02-05] MEDS: CLOTRIMAZOLE 1% 15 GM TUBE TP SCH ×2 (08:38→16:19)
[2021-02-05] MEDS: PROSOURCE / PROSTAT (PYXIS) 30 ML UDC PO SCH ×3 (08:38→16:19)
[2021-02-05 09:10] LABS: CALCIUM, SERUM 7.9 mg/dL (8.5-10.1); CREATININE 1.1 mg/dL (0.6-1.3); POTASSIUM 4.3 mmol/L (3.5-5.1)
[2021-02-05] MEDS: CEFEPIME 2 GM in IV D5W 100 ML IV SCH ×2 (09:14→21:14)
[2021-02-05] MEDS ORDERED: IV NS 0.9% 500 ML IV ONE ×2 (11:00→19:00)
[2021-02-05 15:43] VITALS: BP 98/45
[2021-02-05 15:45] VITALS: BP_SYST 127; BP_SYST 131; BP_DIAS 70
--- NOTE | 2021-02-05 15:56 | NUR ---
RN NOTES ORTHOSTATIC BP SUPINE: BP: 98/45 HR: 87 SITTING: BP 127/70 HR: 90 STANDING: BP: 131/70 HR: 96
[2021-02-05 16:00] VITALS: BP 98/45
--- NOTE | 2021-02-05 18:50 | NUR ---
MS RN CLOSING NOTES PATIENT REMAINS IN BED, AWAKE, A/O X4. PATIENT ON ROOM AIR; BREATHING EVEN AND UNLABORED AT THIS TIME. NO COMPLAINS OF PAIN DURING SHIFT. R FOOT WOUND VAC PRESENT. ILA PICC IN PLACE AND INTACT AT TKO 10 MLS. ALL NEEDS ATTENDED DURING THE DAY. SAFETY PRECAUTIONS IN PLACE; BED IN LOW POSITION AND LOCKED, RAILS UP X2, CALL LIGHT WITHIN REACH. WILL ENDORSE TO CONCESSIONIST NURSE.
--- NOTE | 2021-02-05 19:30 | NUR ---
MS RN OPENING NOTES Patient is awake, A&Ox4, wound vac in place and working. Denies pain at this time but said she is in tolerable discomfort 1/10 to BLE. No signs of distress. All safety measures in place. Will continue to monitor.
[2021-02-05 20:00] VITALS: BP 115/60
[2021-02-05] MEDS: ENOXAPARIN SODIUM 40 MG/0.4 ML DISP.SYRIN SQ SCH (21:00)
[2021-02-05] MEDS: VANCOMYCIN HCL 0.75 GM in IV D5W 250 ML IV SCH (21:58)
[2021-02-05] MEDS: INSULIN GLARGINE, 100 UNIT/ML CARTRIDGE SQ SCH (22:00)
--- NOTE | 2021-02-06 01:34 | NUR ---
Lovenox held as per MD order d/t no current CBC available, serosanguineous output to woundvac and pt c/o dizziness. Insulin Lantus long-acting held d/t patient reports been eating less than 25% of all meals.
[2021-02-06 06:32] LABS: BASOPHILS % (AUTO) 0.9 % (0.0-2.0); EOSINOPHILS % (AUTO) 5.2 % (0.0-6.0); HEMATOCRIT 27 % (33-45); HEMOGLOBIN 8.5 g/dL (11.5-14.8); LYMPHOCYTES % (AUTO) 21.8 % (20.0-44.0); MEAN CORPUSCULAR HGB CONC 32 g/dl (31.0-36.0); MEAN CORPUSCULAR VOLUME 78 fL (82-100); MONOCYTES # (AUTO) 0.7 K/uL (0.1-1.30); NEUTROPHILS # (AUTO) 2.7 K/uL (1.8-8.9); NEUTROPHILS % (AUTO) 58.1 % (43.0-81.0); PLATELET COUNT (AUTO) 100 K/uL (150-450); RED BLOOD CELL COUNT(AUTO) 3.42 MIL/uL (4.0-5.2); WHITE BLOOD COUNT (AUTO) 4.7 K/uL (4.3-11.0)
[2021-02-06] MEDS: BLOOD SUGAR DIAGNOSTIC 1 EACH STRIP IN SCH ×3 (06:50→17:13)
[2021-02-06] MEDS: LEVOTHYROXINE SODIUM 25 MCG TABLET PO SCH ×2 (07:30→08:24)
--- NOTE | 2021-02-06 07:40 | NUR ---
MS RN CLOSING Patient is A&Ox4. VSS. No c/o pain or discomfort. Tolerating IV ABX well. No hypo or hyperglycemic reactions noted. Wound vac on and dsg intact.
[2021-02-06 08:00] VITALS: BP 138/74
[2021-02-06] MEDS: GABAPENTIN 100 MG CAPSULE PO SCH ×3 (08:24→17:00)
[2021-02-06] MEDS: PANTOPRAZOLE 40 MG TABLET.DR PO SCH (08:24)
[2021-02-06] MEDS: CEFEPIME 2 GM in IV D5W 100 ML IV SCH (08:25)
[2021-02-06] MEDS: POLYETHYLENE GLYCOL 3350 17 GM POWD.PACK PO SCH ×2 (08:25→08:54)
[2021-02-06] MEDS: METFORMIN 500 MG TABLET PO SCH ×2 (08:25→17:00)
[2021-02-06] MEDS: DOCUSATE SODIUM 100 MG CAPSULE PO SCH ×2 (08:25→17:00)
[2021-02-06] MEDS: ASPIRIN EC 81 MG TABLET.DR PO SCH (08:25)
[2021-02-06] MEDS: PROSOURCE / PROSTAT (PYXIS) 30 ML UDC PO SCH ×4 (08:28→17:00)
[2021-02-06] MEDS: CLOTRIMAZOLE 1% 15 GM TUBE TP SCH ×2 (08:33→17:10)
[2021-02-06] MEDS: FUROSEMIDE 40 MG TABLET PO SCH (08:34)
--- NOTE | 2021-02-06 08:55 | NUR ---
PATIENT REFUSED PRO STAT, MIRALAX, GABAPENTIN AND SYNTHROID
[2021-02-06 09:18] LABS: CALCIUM, SERUM 8.1 mg/dL (8.5-10.1); POTASSIUM 3.8 mmol/L (3.5-5.1)
[2021-02-06] MEDS ORDERED: VANC750F2 IV (09:18)
--- NOTE | 2021-02-06 13:00 | NUR ---
MS RN NOTE SPOKE WITH DR. LEMONS REGARDING WOUND CARE - PATIENT IS DISCHARGING HOME WITH HOME HEALTH CARE. PATIENT IS TO FOLLOW UP WITH WOUND CARE CLINIC ON FridayFebruary AT 1PM. WOUND VAC REMOVED - IRRIGATED WITH NS, APPLIED BETADINE SOAKED GAUZE, APPLIED ABDOMINAL PAD, KERLIX AND ROWENA WRAP.
[2021-02-06 16:00] VITALS: BP 138/77
--- NOTE | 2021-02-06 17:12 | NUR ---
PATIENT REFUSED ALL 1700 MEDICATIONS - STATES SHE IS GOING HOME SOON AND DOES NOT NEED THEM. PATIENT REFUSED ACCUCHECK WELL. PATIENT IS SUPPOSED TO BE DISCHARGING WITHIN THE HOUR.
--- NOTE | 2021-02-06 18:09 | NUR ---
MS DIRECTOR OF PUBLIC HEALTH NOTE PATIENT DISCHARGED HOME VIA MEDICAL TRANSPORTATION. PATIENT IS STABLE, A/O X4. STABLE ON ROOM AIR - NO SOB OR DISCOMFORT NOTED. NO PAIN NOTED AT THIS TIME. PATIENT HAS PICC LINE IV ACCESS - PICC LINE IS STAYING IN, PATIENT IS GETTING IV ANTIBIOTICS X6 WEEKS. ORDERS FROM DR. LEMONS TO DO DRESSING CHANGE - DONE. DISCHARGE PHOTOS IN CHART. PATIENT IS NOT DISCHARGING WITH WOUND VAC. PATIENT WILL HAVE HOME HEALTH HELP. PATIENT KEPT CLEAN AND DRY THROUGHOUT SHIFT. ALL EXITCARE AND EDUCATION GONE OVER WITH PATIENT - PATIENT KNOWS NO WEIGHT BEARING ON FEET. PATIENT ACCOMPANIED TO LOBBY VIA WHEELCHAIR BY TRANSPORTATION FACILITY.
== END 2021-02-06 18:08 | disposition home health service (06) | DRG 623 ==
LOC: ER 15:11 → MED 18:37
PROVIDERS: ADMIT Internal Medicine; ATTEND Nurse Practitioner Acute Care
PROC: 0KBV0ZZ Excision of Right Foot Muscle, Open Approach (ICD-10-PCS; principal; 2021-02-02)
PROC: 0JBR0ZZ Excision of Left Foot Subcutaneous Tissue and Fascia, Open Approach (ICD-10-PCS; 2021-02-02)
PROC: 0QBL0ZX Excision of Right Tarsal, Open Approach, Diagnostic (ICD-10-PCS; 2021-02-02)
DX: E11.69 Type 2 diabetes mellitus with other specified complication (principal); L03.115 Cellulitis of right lower limb; M86.8X7 Other osteomyelitis, ankle and foot; L97.518 Non-pressure chronic ulcer of other part of right foot with other specified severity; L97.528 Non-pressure chronic ulcer of other part of left foot with other specified severity; L03.116 Cellulitis of left lower limb; N17.0 Acute kidney failure with tubular necrosis; Z20.822 Contact with and (suspected) exposure to COVID-19; E11.621 Type 2 diabetes mellitus with foot ulcer; D63.8 Anemia in other chronic diseases classified elsewhere; E11.42 Type 2 diabetes mellitus with diabetic polyneuropathy; E66.01 Morbid (severe) obesity due to excess calories; E03.9 Hypothyroidism, unspecified; E83.51 Hypocalcemia; I10 Essential (primary) hypertension; I25.10 Atherosclerotic heart disease of native coronary artery without angina pectoris; I95.1 Orthostatic hypotension; Z79.4 Long term (current) use of insulin; I89.0 Lymphedema, not elsewhere classified; E78.5 Hyperlipidemia, unspecified; B95.2 Enterococcus as the cause of diseases classified elsewhere; E11.610 Type 2 diabetes mellitus with diabetic neuropathic arthropathy; D69.6 Thrombocytopenia, unspecified
CPT/HCPCS: 11042; 11043; 36415; 38221; 71045-TC; 73610-TC; 73630-TC; 73718-TC; 73721-TC; 80048-TC; 80053-TC; 80061-TC; 80202-TC; 82962-TC; 83540-TC; 83735-TC; 84100-TC; 84443-TC; 85025-TC; 85652-TC; 85730-TC; 86140-TC; 87040-TC; 87070-TC; 87075-TC; 87081-TC; 87186-TC; 88305-TC; 88311-TC; 93970-TC; A6403; C9803; G0378; J0692; J1650; J1815; J1885; J2250; J2405; J2543; J2704; J2765; J3010; J3370; J3490; J7030; J7040; J7050; J7060

== ENCOUNTER 2021-02-09 13:00 | Outpatient (CLI) | payer MEDICARE, OTHER ==
[~2021-02-09 13:00] MED LIST changes: +ACET-868 PO; +ASPI-1420 PO; +BISA10SU11 RC; +DOCU-141 PO; +ENOX30DI SQ; +FURO-144 PO; +GABA-532 PO; +HYDR-3980 PO; +HYDR-4209 PO; +INSU100V42 SQ; +INSU100V7 SQ; -KETOROLAC TROMETHAMINE 15 MG/ML VIAL ONE; +LEVO25TA9 PO; +LISI-768 PO; +METF-440 PO; +MULT-447 PO; +PANT40TA2 PO; +POLY17PO4 PO; +SPIR25TA PO; +VANC750F2 IV
== END 2021-02-09 23:59 | disposition home health service (06) ==
LOC: WOU 13:00
PROVIDERS: ATTEND Podiatrist Foot & Ankle Surgery
DX: E11.622 Type 2 diabetes mellitus with other skin ulcer (principal); L97.322 Non-pressure chronic ulcer of left ankle with fat layer exposed; L97.315 Non-pressure chronic ulcer of right ankle with muscle involvement without evidence of necrosis; E11.621 Type 2 diabetes mellitus with foot ulcer; L97.512 Non-pressure chronic ulcer of other part of right foot with fat layer exposed; E11.610 Type 2 diabetes mellitus with diabetic neuropathic arthropathy; E11.42 Type 2 diabetes mellitus with diabetic polyneuropathy; Z79.4 Long term (current) use of insulin; T81.89XS Other complications of procedures, not elsewhere classified, sequela; M86.272 Subacute osteomyelitis, left ankle and foot; M86.271 Subacute osteomyelitis, right ankle and foot
CPT/HCPCS: 11042; 11043; 82962-TC; 97605-TC

== ENCOUNTER 2021-02-16 13:30 | Outpatient (CLI) | payer MEDICARE, OTHER ==
[2021-02-16 14:14] LABS: BASOPHILS % (AUTO) 0.4 % (0.0-2.0); EOSINOPHILS % (AUTO) 0.6 % (0.0-6.0); HEMATOCRIT 29 % (33-45); HEMOGLOBIN 9.2 g/dL (11.5-14.8); LYMPHOCYTES # (AUTO) 0.3 K/uL (0.8-4.8); MEAN CORPUSCULAR HGB CONC 32 g/dl (31.0-36.0); MEAN CORPUSCULAR VOLUME 77 fL (82-100); MONOCYTES # (AUTO) 0.3 K/uL (0.1-1.30); MONOCYTES % (AUTO) 3.5 % (2.0-12.0); NEUTROPHILS # (AUTO) 7.2 K/uL (1.8-8.9); NEUTROPHILS % (AUTO) 91.5 % (43.0-81.0); RED BLOOD CELL COUNT(AUTO) 3.73 MIL/uL (4.0-5.2); WHITE BLOOD COUNT (AUTO) 7.8 K/uL (4.3-11.0)
[2021-02-16 15:35] LABS: BILIRUBIN,TOTAL 1.7 mg/dL (0.2-1.0); CALCIUM, SERUM 8.1 mg/dL (8.5-10.1); CREATININE 1.3 mg/dL (0.6-1.3); POTASSIUM 4.1 mmol/L (3.5-5.1); TOTAL PROTEIN, SERUM 7.2 g/dL (6.4-8.2)
[2021-02-16 15:53] LABS: PLATELET COUNT (AUTO) 113 K/uL (150-450)
[2021-02-16 18:52] LABS: C-REACTIVE PROTEIN 4.4 mg/dL (0.0-0.9)
== END 2021-02-16 23:59 | disposition home health service (06) ==
LOC: WOU 13:30
PROVIDERS: ATTEND Podiatrist Foot & Ankle Surgery
DX: E11.621 Type 2 diabetes mellitus with foot ulcer (principal); L97.512 Non-pressure chronic ulcer of other part of right foot with fat layer exposed; E11.622 Type 2 diabetes mellitus with other skin ulcer; L97.322 Non-pressure chronic ulcer of left ankle with fat layer exposed; L97.315 Non-pressure chronic ulcer of right ankle with muscle involvement without evidence of necrosis; E11.610 Type 2 diabetes mellitus with diabetic neuropathic arthropathy; E11.40 Type 2 diabetes mellitus with diabetic neuropathy, unspecified; Z79.4 Long term (current) use of insulin; R60.0 Localized edema; M86.272 Subacute osteomyelitis, left ankle and foot; M86.271 Subacute osteomyelitis, right ankle and foot; E86.0 Dehydration
CPT/HCPCS: 11043; 11046; 36415; 80053; 82962; 85025; 85652; 86140; 97605; G0463

== ENCOUNTER 2021-02-22 18:01 | Inpatient (IN) | payer MEDICARE, OTHER ==
[~2021-02-22] VITALS: Ht 157.5 cm; Wt 111.6 kg
--- NOTE | 2021-02-22 18:15 | NUR ---
THERESA [id number] From Home "Abdominal pain/distention/bloating x1wk". Rates abdominal pain 7/10. In room and denies SOB. Respiration regular and unlabored. Attached to the monitor. Will continue to monitor the patient.
[2021-02-22 19:21] LABS: EOSINOPHILS % (AUTO) 3.2 % (0.0-6.0); HEMATOCRIT 26 % (33-45); HEMOGLOBIN 8.3 g/dL (11.5-14.8); LYMPHOCYTES # (AUTO) 1.2 K/uL (0.8-4.8); LYMPHOCYTES % (AUTO) 23.3 % (20.0-44.0); MEAN CORPUSCULAR HGB CONC 32 g/dl (31.0-36.0); MEAN CORPUSCULAR VOLUME 77 fL (82-100); MONOCYTES # (AUTO) 0.4 K/uL (0.1-1.30); NEUTROPHILS # (AUTO) 3.3 K/uL (1.8-8.9); NEUTROPHILS % (AUTO) 65.5 % (43.0-81.0); PLATELET COUNT (AUTO) 120 K/uL (150-450); RED BLOOD CELL COUNT(AUTO) 3.42 MIL/uL (4.0-5.2)
[2021-02-22 19:31] LABS: CALCIUM, SERUM 7.9 mg/dL (8.5-10.1); CREATININE 1.4 mg/dL (0.6-1.3); POTASSIUM 4.3 mmol/L (3.5-5.1)
[2021-02-22 19:44] LABS: ALBUMIN 1.9 g/dL (3.4-5.0); BILIRUBIN,DIRECT 0.4 mg/dL (0.0-0.2); BILIRUBIN,TOTAL 0.9 mg/dL (0.2-1.0); TOTAL PROTEIN, SERUM 7.2 g/dL (6.4-8.2)
--- NOTE | 2021-02-22 19:51 | NUR ---
covid swab sent to lab
--- NOTE | 2021-02-22 20:32 | NUR ---
pt placed on 2L O2 for comfort
--- NOTE | 2021-02-22 20:35 | NUR ---
verbal order 4mg zofran iv
[2021-02-22] MEDS ORDERED: ONDANSETRON HCL/PF 4 MG/2 ML VIAL ONE (20:36)
--- NOTE | 2021-02-22 20:43 | NUR ---
verbal order 1mg ativan iv
[2021-02-22] MEDS ORDERED: FUROSEMIDE 40 MG/4 ML VIAL ONE (20:44)
[2021-02-22] MEDS ORDERED: LORAZEPAM INJ 2 MG/ML VIAL ONE (20:45)
--- NOTE | 2021-02-22 20:46 | NUR ---
PANEL PAGED PER ER MD ORDER.
[2021-02-22] MEDS ORDERED: FUROSEMIDE 20 MG/2 ML VIAL ONE (20:47)
--- NOTE | 2021-02-22 20:49 | NUR ---
ALEXANDER FERNANDEZ TALKING TO ROOSEVELT NELSON NP REGARDING PT ADMISSION.
[2021-02-22] MEDS ORDERED: FUROSEMIDE 40 MG/4 ML VIAL IV ONE (21:00)
[2021-02-22] MEDS ORDERED: LORAZEPAM INJ 2 MG/ML VIAL IV ONE (21:00)
[2021-02-22] MEDS ORDERED: ONDANSETRON HCL/PF - ER 4 MG/2 ML VIAL IV ONE (21:00)
--- NOTE | 2021-02-22 21:25 | NUR ---
Yogi graf in [facility] - 02/22/21 at 2126 by PAT TELE [id number]
--- NOTE | 2021-02-22 21:26 | NUR ---
TELE 104
--- NOTE | 2021-02-22 22:11 | NUR ---
gave report to TEO Harris for carroll. Bed not cleaned, will be ready in 20 min
[2021-02-22] MEDS ORDERED: ONDANSETRON HCL/PF 4 MG/2 ML VIAL IVP PRN (22:30)
[2021-02-22] MEDS ORDERED: MAG HYDROX/AL HYDROX/SIMETH 30 ML UDC PO PRN (22:30)
[2021-02-22] MEDS ORDERED: VANCOMYCIN 2 GM in IV D5W 500 ML IV ONE (22:30)
[2021-02-22] MEDS ORDERED: ACETAMINOPHEN 325 MG TABLET PO PRN (22:30)
[2021-02-22] MEDS ORDERED: MAGNESIUM HYDROXIDE 30 ML UDC PO PRN (22:30)
--- NOTE | 2021-02-22 22:40 | NUR ---
RN ADMITTING NOTE PATIENT TRANSFERRED BY DEANA IN RM 104-2. TELE MONITOR READS SR 87 BPM. PATIENT IS A/O X 3, ABLE TO MAKE NEEDS KNOWN. PATIENT CURRENTLY ON 2L OF OXYGEN SUPPLEMENTATION, SATTING AT 95%. NOT IN ANY APPARENT DISTRESS. NO PAIN, N/V NOTED UPON ADMISSION. ABDOMEN IS DISTENDED AND ROUND, NON TENDER. PATIENT HAS DRESSING ON BILATERAL FEET. PER PATIENT, SHE HAD SURGERY 4 TIMES ON HER FEET. UNABLE TO SAY WHAT PROCEDURE. SKIN ISSUES DOCUMENTED. PATIENT'S BELONGINGS INVENTORIED, ORIENTED PATIENT TO ROOM, RN, RADIOLOGY ORDERLY. SAFETY MEASURES IN PLACE. WILL MONITOR PATIENT.
[2021-02-22] MEDS ORDERED: BISACODYL SUPP (10 MG) 10 MG/SUPP.RECT SUPP.RECT RC PRN (23:30)
[2021-02-22] MEDS ORDERED: DEXTROSE 50%-WATER 50 ML DISP.SYRIN IV PRN (23:30)
[2021-02-23] VITALS: BP 103/55
[2021-02-23] MEDS ORDERED: VANCOMYCIN 1 GM VIAL ONE (00:17)
[2021-02-23 04:00] VITALS: BP 96/69
--- NOTE | 2021-02-23 05:58 | NUR ---
PATIENT STILL REFUSING WOUND TREATMENT AND FOR DRESSINGS TO BE REMOVED FROM BILATERAL FEET. ASKED TO BE DONE AT A LATER TIME. WILL ENDORSE TO DAY SHIFT NURSE TO FOLLOW UP.
[2021-02-23 06:21] LABS: BASOPHILS # (AUTO) 0.1 K/uL (0.0-0.2); BASOPHILS % (AUTO) 0.7 % (0.0-2.0); EOSINOPHILS % (AUTO) 0.6 % (0.0-6.0); HEMATOCRIT 25 % (33-45); HEMOGLOBIN 7.9 g/dL (11.5-14.8); LYMPHOCYTES # (AUTO) 0.8 K/uL (0.8-4.8); LYMPHOCYTES % (AUTO) 11.5 % (20.0-44.0); MEAN CORPUSCULAR HGB CONC 32 g/dl (31.0-36.0); MEAN CORPUSCULAR VOLUME 77 fL (82-100); MONOCYTES # (AUTO) 0.4 K/uL (0.1-1.30); NEUTROPHILS % (AUTO) 81.2 % (43.0-81.0); PLATELET COUNT (AUTO) 94 K/uL (150-450); RED BLOOD CELL COUNT(AUTO) 3.22 MIL/uL (4.0-5.2); WHITE BLOOD COUNT (AUTO) 7.4 K/uL (4.3-11.0)
[2021-02-23] MEDS: INSULIN REGULAR, HUMAN 100 UNIT/ML 3 ML VIAL SQ PRN ×3 (06:29→22:07)
[2021-02-23] MEDS: BLOOD SUGAR DIAGNOSTIC 1 EACH STRIP IN SCH ×4 (06:33→22:09)
--- NOTE | 2021-02-23 06:45 | NUR ---
RN CLOSING NOTE PATIENT NOT IN ANY APPARENT DISTRESS. PATIENT REMAINS A/O X 3, ABLE TO MAKE NEEDS KNOWN. CURRENTLY ON 3 L OF O2 SUPPLEMENT. BREATHING EVEN AND UNLABORED, HAS SOB UPON EXERTION. FAMILY WISHES PATIENT TO BE FULL CODE, HOWEVER, PATIENT WANTS DNR. SON WILL BE VISITING TODAY AND WILL HAVE A DISCUSSION WITH PT REGARDING CODE STATUS, SON WILL ALSO BRING HOME MEDS. DRESSING ON BILATERAL FEET STILL CLEAN AND DRY. BS 2112 MG/DL COVERAGE OF 4 UNITS GIVEN. SAFETY MEASURES IN PLACE: BED ALARM ON, SIDE RAILS UP, CALL LIGHT WITHIN REACH, BSC AT BEDSIDE, BED IN LOCKED AND LOWEST POSITION. WILL ENDORSE TO DAY SHIFT.
[2021-02-23 07:12] LABS: ALBUMIN 1.9 g/dL (3.4-5.0); BILIRUBIN,DIRECT 0.5 mg/dL (0.0-0.2); BILIRUBIN,TOTAL 1.7 mg/dL (0.2-1.0); CALCIUM, SERUM 7.9 mg/dL (8.5-10.1); CREATININE 1.6 mg/dL (0.6-1.3); MAGNESIUM 1.9 mg/dL (1.8-2.4); POTASSIUM 4.5 mmol/L (3.5-5.1); TOTAL PROTEIN, SERUM 6.8 g/dL (6.4-8.2)
[2021-02-23 08:00] VITALS: BP 101/62
[2021-02-23] MEDS: LEVOTHYROXINE SODIUM 25 MCG TABLET PO SCH (08:08)
[2021-02-23] MEDS: PANTOPRAZOLE 40 MG TABLET.DR PO SCH (08:08)
[2021-02-23] MEDS: HEPARIN SODIUM, PORCINE 5000 UNITS/1 ML VIAL SQ SCH ×2 (09:00→21:52)
[2021-02-23 10:00] LABS: BAND % (MANUAL) 1 % (0.0-5.0); EOSINOPHILS % (MANUAL) 1 % (0-4); LYMPHOCYTES % (MANUAL) 8 % (16-48); MONOCYTES % (MANUAL) 1 % (0-11.0); NEUTROPHILS % (MANUAL) 89 (42-76)
[2021-02-23] MEDS: DOCUSATE SODIUM 100 MG CAPSULE PO SCH ×2 (10:08→16:53)
[2021-02-23] MEDS: SPIRONOLACTONE 25 MG TABLET PO SCH (10:08)
[2021-02-23] MEDS: ASPIRIN EC 81 MG TABLET.DR PO SCH (10:08)
[2021-02-23] MEDS: GABAPENTIN 100 MG CAPSULE PO SCH ×2 (10:08→16:53)
[2021-02-23] MEDS: MULTIVIT W/MINERALS 1 TAB TABLET PO SCH (10:08)
[2021-02-23] MEDS: FUROSEMIDE 40 MG/4 ML VIAL IV SCH ×3 (10:09→17:09)
--- NOTE | 2021-02-23 10:23 | NUR ---
WOUND CARE CONSULT: PT PRESENTS WITH BILATERAL FOOT DRESSINGS WHICH ARE DRY AND INTACT, PRESENT ON ADMISSION. PT DID NOT WANT DRESSINGS REMOVED AT THIS TIME. DR LEMONS NOTIFIED OF PT ADMISSION FOR DPM CONSULT. PT NOTED TO HAVE SOME REDNESS/RASH TO SKIN FOLDS. RECOMMENDATIONS MADE FOR SKIN PROTECTION AND SKIN CARE. DISCUSSED WITH NURSING STAFF. MD IN AGREEMENT WITH PLAN OF CARE.
[2021-02-23] MEDS ORDERED: Z GUARD REMEDY 2 OZ OINT TP PRN (10:30)
[2021-02-23 12:00] VITALS: BP 109/65
[2021-02-23] MEDS: Z GUARD REMEDY 2 OZ OINT TP SCH (12:28)
--- NOTE | 2021-02-23 14:56 | NUR ---
[facility], [place], . Ministerio Lai RN
[2021-02-23 16:00] VITALS: BP 116/60
[2021-02-23] MEDS ORDERED: LISINOPRIL (5MG) 5 MG TABLET PO SCH (17:00)
[2021-02-23] MEDS: CLOTRIMAZOLE 1% 15 GM TUBE TP SCH (17:08)
[2021-02-23] MEDS ORDERED: VANCOMYCIN 0.75 GM in IV D5W 250 ML IV SCH (18:00)
--- NOTE | 2021-02-23 19:27 | NUR ---
BELT LOOP MAKER NOTES PATIENT RECEIVED A/O X 3, ABLE TO MAKE NEEDS KNOWN. CURRENTLY ON 3 L OF O2 SUPPLEMENT. BREATHING EVEN AND UNLABORED, HAS SOB UPON EXERTION. PT DO RESPIRATORY DISTRESS AT THIS TIME. PT HAS ILA PICC LINE INTACT FLUSHING WELL. DRESSING ON BILATERAL FEET CLEAN AND DRY. SAFETY MEASURES IN PLACE: BED ALARM ON, SIDE RAILS UP, CALL LIGHT WITHIN REACH, BSC AT BEDSIDE, BED IN LOCKED AND LOWEST POSITION. WILL CONTINUE TO MONITOR.
[2021-02-23] MEDS: ZOLPIDEM TARTRATE 5 MG TABLET PO PRN ×2 (21:48→22:16)
[2021-02-23] MEDS: INSULIN GLARGINE, 100 UNIT/ML CARTRIDGE SQ SCH (22:09)
--- NOTE | 2021-02-23 22:17 | NUR ---
DRUM REEL CUTTER NOTES PT EXPRESSED WANTING SLEEPING PILL ONCE MEDICATION BROUGHT PT CHANGED HER MIND STATED AMBIEN DID NOT HELP HER. PT REPORTED PAIN LEVEL 9/10 BILATERAL LEGS MORPHINE PROVIDED FOR PAIN MANAGEMENT WILL CONTINUE TO MONITOR FOR PAIN MEDICATION EFFECTIVENESS.
[2021-02-23 22:44] VITALS: BP 143/70
[2021-02-23] MEDS: MORPHINE SULFATE INJ 2 MG/ML DISP.SYRIN IV PRN (23:47)
--- NOTE | 2021-02-23 23:48 | NUR ---
TIN ASSORTER NOTES LATE SCAN FOR MORPHINE GIVEN @ 2230. PT PT REASSESSMENT DONE PT IS NOW 2/10 ON A NUMERIC PAIN SCALE WILL CONTINUE TO MONITOR.
[2021-02-24] VITALS (7 sets, daily range): BP systolic 94–135; BP diastolic 39–65
--- NOTE | 2021-02-24 05:50 | NUR ---
MANAGER EMPLOYEE BENEFITS NOTES PT ASSISTED TO BSC. PT REPORTED PAIN 6/10 ON A NUMERIC SCALE. OFFERED PAIN MEDICATION PT SAID SHE WANTED TYLENOL PT STATED " I FEEL LIKE THE MORPHINE DOESN'T DO ME WELL JUST GIVE ME TYLENOL" WILL REASSESS PT PAIN AFTER ADMINISTRATION. WILL CONTINUE TO MONITOR.
[2021-02-24 06:21] LABS: BASOPHILS % (AUTO) 0.5 % (0.0-2.0); EOSINOPHILS % (AUTO) 3.1 % (0.0-6.0); HEMATOCRIT 22 % (33-45); HEMOGLOBIN 7.2 g/dL (11.5-14.8); LYMPHOCYTES # (AUTO) 0.9 K/uL (0.8-4.8); LYMPHOCYTES % (AUTO) 17.4 % (20.0-44.0); MEAN CORPUSCULAR HGB CONC 32 g/dl (31.0-36.0); MEAN CORPUSCULAR VOLUME 77 fL (82-100); MONOCYTES # (AUTO) 0.5 K/uL (0.1-1.30); MONOCYTES % (AUTO) 10.6 % (2.0-12.0); NEUTROPHILS # (AUTO) 3.4 K/uL (1.8-8.9); NEUTROPHILS % (AUTO) 68.4 % (43.0-81.0); PLATELET COUNT (AUTO) 86 K/uL (150-450); RED BLOOD CELL COUNT(AUTO) 2.92 MIL/uL (4.0-5.2)
[2021-02-24 06:38] LABS: ALBUMIN 1.7 g/dL (3.4-5.0); BILIRUBIN,TOTAL 1.2 mg/dL (0.2-1.0); CALCIUM, SERUM 7.7 mg/dL (8.5-10.1); CREATININE 1.5 mg/dL (0.6-1.3); MAGNESIUM 1.8 mg/dL (1.8-2.4); PHOSPHORUS 3.6 mg/dL (2.5-4.9); TOTAL PROTEIN, SERUM 6.1 g/dL (6.4-8.2)
[2021-02-24 07:10] LABS: BILIRUBIN,URINE NEGATIVE (NEGATIVE); COLOR,URINE YELLOW (YELLOW); LEUKOCYTE ESTERASE ,URINE SMALL (NEGATIVE); NITRITE, URINE NEGATIVE (NEGATIVE); PH,URINE 5.5 (5.0-8.0); PROTEIN,URINE NEGATIVE (NEGATIVE); UGLUCOSE NEGATIVE (NEGATIVE); UROBILINOGEN,URINE 0.2 EU/dL (0.2)
[2021-02-24] MEDS: LEVOTHYROXINE SODIUM 25 MCG TABLET PO SCH (07:30)
[2021-02-24 07:31] LABS: BACTERIA,URINE None seen /HPF (None Seen); SQUAMOUS EPITHELIAL CELL,UR Few /HPF (None Seen); WBC,URINE 0-2 /HPF (0-3)
[2021-02-24] MEDS: BLOOD SUGAR DIAGNOSTIC 1 EACH STRIP IN SCH ×4 (07:49→21:22)
[2021-02-24] MEDS: INSULIN REGULAR, HUMAN 100 UNIT/ML 3 ML VIAL SQ PRN ×3 (07:50→21:21)
[2021-02-24] MEDS: PANTOPRAZOLE 40 MG TABLET.DR PO SCH (07:57)
[2021-02-24] MEDS: HEPARIN SODIUM, PORCINE 5000 UNITS/1 ML VIAL SQ SCH ×2 (08:32→21:22)
[2021-02-24] MEDS: DOCUSATE SODIUM 100 MG CAPSULE PO SCH ×2 (08:37→17:00)
[2021-02-24] MEDS: ASPIRIN EC 81 MG TABLET.DR PO SCH (08:37)
[2021-02-24] MEDS: SPIRONOLACTONE 25 MG TABLET PO SCH (08:37)
[2021-02-24] MEDS: CLOTRIMAZOLE 1% 15 GM TUBE TP SCH ×2 (08:37→17:00)
[2021-02-24] MEDS: GABAPENTIN 100 MG CAPSULE PO SCH ×2 (08:37→17:56)
[2021-02-24] MEDS: MULTIVIT W/MINERALS 1 TAB TABLET PO SCH (08:37)
[2021-02-24] MEDS: Z GUARD REMEDY 2 OZ OINT TP SCH (08:38)
[2021-02-24] MEDS ORDERED: LACTULOSE 10 G/15 ML UDC (PYXIS) PO PRN (09:30)
[2021-02-24] MEDS: FUROSEMIDE 40 MG/4 ML VIAL IV SCH ×3 (09:53→17:40)
[2021-02-24 11:18] LABS: BASOPHILS % (AUTO) 0.3 % (0.0-2.0); EOSINOPHILS % (AUTO) 3.6 % (0.0-6.0); HEMATOCRIT 23 % (33-45); HEMOGLOBIN 7.3 g/dL (11.5-14.8); LYMPHOCYTES # (AUTO) 0.8 K/uL (0.8-4.8); LYMPHOCYTES % (AUTO) 17.4 % (20.0-44.0); MEAN CORPUSCULAR HGB CONC 32 g/dl (31.0-36.0); MEAN CORPUSCULAR VOLUME 77 fL (82-100); MONOCYTES # (AUTO) 0.6 K/uL (0.1-1.30); MONOCYTES % (AUTO) 11.8 % (2.0-12.0); NEUTROPHILS # (AUTO) 3.2 K/uL (1.8-8.9); NEUTROPHILS % (AUTO) 66.9 % (43.0-81.0); PLATELET COUNT (AUTO) 86 K/uL (150-450); RED BLOOD CELL COUNT(AUTO) 2.98 MIL/uL (4.0-5.2); WHITE BLOOD COUNT (AUTO) 4.7 K/uL (4.3-11.0)
[2021-02-24] MEDS: LACTULOSE 10 G/15 ML UDC (PYXIS) PO SCH ×3 (11:34→23:22)
[2021-02-24] MEDS: ALBUMIN 25% 25 GM in PREMIX 1 EA IV SCH ×2 (12:11→23:21)
[2021-02-24] MEDS ORDERED: IRON SUCROSE COMPLEX 200 MG in IV NS 0.9% 100 ML IV SCH (13:00)
[2021-02-24] MEDS: RIFAXIMIN 550 MG TABLET PO SCH ×2 (13:55→21:16)
[2021-02-24] MEDS: FERRLICET 125MG in 100 ML NS IVPB IV SCH (14:12)
[2021-02-24] MEDS: CEFEPIME 1 GM in IV D5W 50 ML IV SCH (17:38)
--- NOTE | 2021-02-24 19:30 | NUR ---
RN NOTE REPORT RECEIVED FROM HO BRUCE, PATIENT IN BED, AAO X 4, IN NO S/SX OF ACUTE DISTRESS AT THIS TIME. BREATHING IS EVEN AND UNLABORED, SATURATION AT 98% ON ROOM AIR, SR ON THE MONITOR, HR IS 82. NOTED ILA PICC LINE, BOTH HUBS PATENT AND FLUSHING WELL, NO S/S OF INFECTION. NOTED ABDOMINAL DISTENTION, AND BLE EDEMA. SAFETY MEASURES IMPLEMENTED. PATIENT BED ALARM IS ON. HEAD OF BED ELEVATED. BED IS LOCKED, IN LOWEST POSITION AND SIDE RAILS UP. CALL LIGHT WITHIN REACH OF THE PATIENT. WILL CONTINUE TO MONITOR AND REASSESS FOR ANY CHANGES.
[2021-02-24 20:30] LABS: HEMOGLOBIN 7.8 g/dL (11.5-14.8)
[2021-02-24] MEDS: INSULIN GLARGINE, 100 UNIT/ML CARTRIDGE SQ SCH (21:20)
[2021-02-24] MEDS: MORPHINE SULFATE INJ 2 MG/ML DISP.SYRIN IV PRN (23:48)
[2021-02-25] VITALS: BP 100/55
[2021-02-25 04:00] VITALS: BP 115/75
[2021-02-25] MEDS: LACTULOSE 10 G/15 ML UDC (PYXIS) PO SCH ×4 (05:45→18:25)
[2021-02-25] MEDS: CEFEPIME 1 GM in IV D5W 50 ML IV SCH ×2 (05:45→18:25)
[2021-02-25 07:22] LABS: BASOPHILS % (AUTO) 0.6 % (0.0-2.0); EOSINOPHILS % (AUTO) 2.6 % (0.0-6.0); HEMATOCRIT 23 % (33-45); HEMOGLOBIN 7.6 g/dL (11.5-14.8); LYMPHOCYTES # (AUTO) 0.9 K/uL (0.8-4.8); LYMPHOCYTES % (AUTO) 17.8 % (20.0-44.0); MEAN CORPUSCULAR HGB CONC 32 g/dl (31.0-36.0); MEAN CORPUSCULAR VOLUME 77 fL (82-100); MONOCYTES # (AUTO) 0.4 K/uL (0.1-1.30); MONOCYTES % (AUTO) 8.9 % (2.0-12.0); NEUTROPHILS # (AUTO) 3.5 K/uL (1.8-8.9); NEUTROPHILS % (AUTO) 70.1 % (43.0-81.0); PLATELET COUNT (AUTO) 100 K/uL (150-450); RED BLOOD CELL COUNT(AUTO) 3.05 MIL/uL (4.0-5.2)
[2021-02-25 07:37] LABS: CALCIUM, SERUM 8.1 mg/dL (8.5-10.1); CREATININE 1.5 mg/dL (0.6-1.3); MAGNESIUM 1.8 mg/dL (1.8-2.4); PHOSPHORUS 4.1 mg/dL (2.5-4.9); POTASSIUM 3.8 mmol/L (3.5-5.1)
[2021-02-25 08:00] VITALS: BP 100/57
[2021-02-25] MEDS: PANTOPRAZOLE 40 MG TABLET.DR PO SCH (08:04)
[2021-02-25] MEDS: LEVOTHYROXINE SODIUM 25 MCG TABLET PO SCH (08:04)
[2021-02-25] MEDS: BLOOD SUGAR DIAGNOSTIC 1 EACH STRIP IN SCH ×4 (08:10→23:30)
[2021-02-25] MEDS: INSULIN REGULAR, HUMAN 100 UNIT/ML 3 ML VIAL SQ PRN ×3 (08:10→18:24)
[2021-02-25] MEDS: SPIRONOLACTONE 25 MG TABLET PO SCH (08:35)
[2021-02-25] MEDS: ASPIRIN EC 81 MG TABLET.DR PO SCH ×2 (08:35→09:00)
[2021-02-25] MEDS: RIFAXIMIN 550 MG TABLET PO SCH ×2 (08:35→09:00)
[2021-02-25] MEDS: MULTIVIT W/MINERALS 1 TAB TABLET PO SCH (08:36)
[2021-02-25] MEDS: GABAPENTIN 100 MG CAPSULE PO SCH ×3 (08:36→18:26)
[2021-02-25] MEDS: HEPARIN SODIUM, PORCINE 5000 UNITS/1 ML VIAL SQ SCH (08:36)
[2021-02-25] MEDS: CLOTRIMAZOLE 1% 15 GM TUBE TP SCH ×2 (08:37→18:26)
[2021-02-25] MEDS: Z GUARD REMEDY 2 OZ OINT TP SCH (08:37)
[2021-02-25] MEDS: DOCUSATE SODIUM 100 MG CAPSULE PO SCH ×3 (08:49→17:00)
[2021-02-25] MEDS: FUROSEMIDE 40 MG/4 ML VIAL IV SCH ×3 (09:27→18:26)
[2021-02-25] MEDS: POTASSIUM CHLORIDE 20 MEQ TAB.PRT.SR PO SCH ×5 (09:27→12:00)
[2021-02-25 12:00] VITALS: BP_SYST 100; BP_SYST 117; BP_DIAS 57; BP_DIAS 67
[2021-02-25] MEDS: FERRLICET 125MG in 100 ML NS IVPB IV SCH (14:18)
[2021-02-25 16:00] VITALS: BP 99/53
[2021-02-25 20:00] VITALS: BP 120/63
[2021-02-26] VITALS: BP 110/59
[2021-02-26] MEDS: ZOLPIDEM TARTRATE 5 MG TABLET PO PRN (00:13)
[2021-02-26] MEDS: LACTULOSE 10 G/15 ML UDC (PYXIS) PO SCH ×5 (00:13→17:25)
[2021-02-26] MEDS: HEPARIN SODIUM, PORCINE 5000 UNITS/1 ML VIAL SQ SCH ×3 (00:15→20:32)
[2021-02-26] MEDS: MORPHINE SULFATE INJ 2 MG/ML DISP.SYRIN IV PRN ×3 (00:16→22:33)
[2021-02-26] MEDS: RIFAXIMIN 550 MG TABLET PO SCH ×3 (00:16→20:31)
[2021-02-26] MEDS: INSULIN GLARGINE, 100 UNIT/ML CARTRIDGE SQ SCH ×2 (00:18→22:18)
[2021-02-26 04:00] VITALS: BP 112/52
[2021-02-26] MEDS: CEFEPIME 1 GM in IV D5W 50 ML IV SCH ×2 (05:00→16:10)
--- NOTE | 2021-02-26 06:17 | NUR ---
patient crying right leg swollen with dressing patient ask for pain medication medicated at 0016 ask again at 0530 medicated at 0549 with morphine 2 mg ivp 1-10 pain a 9. blood sugar 2200 125 only received lantus 12 units s.q.
[2021-02-26 07:05] LABS: BASOPHILS # (AUTO) 0.1 K/uL (0.0-0.2); BASOPHILS % (AUTO) 1.3 % (0.0-2.0); EOSINOPHILS % (AUTO) 3.7 % (0.0-6.0); HEMATOCRIT 22 % (33-45); HEMOGLOBIN 7.2 g/dL (11.5-14.8); LYMPHOCYTES # (AUTO) 0.8 K/uL (0.8-4.8); LYMPHOCYTES % (AUTO) 20.3 % (20.0-44.0); MEAN CORPUSCULAR HGB CONC 33 g/dl (31.0-36.0); MEAN CORPUSCULAR VOLUME 76 fL (82-100); MONOCYTES # (AUTO) 0.3 K/uL (0.1-1.30); MONOCYTES % (AUTO) 7.7 % (2.0-12.0); NEUTROPHILS # (AUTO) 2.6 K/uL (1.8-8.9); PLATELET COUNT (AUTO) 90 K/uL (150-450); RED BLOOD CELL COUNT(AUTO) 2.92 MIL/uL (4.0-5.2); WHITE BLOOD COUNT (AUTO) 3.9 K/uL (4.3-11.0)
[2021-02-26] MEDS: BLOOD SUGAR DIAGNOSTIC 1 EACH STRIP IN SCH ×4 (07:30→22:17)
[2021-02-26 07:41] LABS: BILIRUBIN,TOTAL 1.7 mg/dL (0.2-1.0); CALCIUM, SERUM 7.9 mg/dL (8.5-10.1); CREATININE 1.5 mg/dL (0.6-1.3); MAGNESIUM 1.7 mg/dL (1.8-2.4); PHOSPHORUS 3.6 mg/dL (2.5-4.9); POTASSIUM 3.7 mmol/L (3.5-5.1); TOTAL PROTEIN, SERUM 6.3 g/dL (6.4-8.2)
[2021-02-26 08:00] VITALS: BP 136/67
--- NOTE | 2021-02-26 09:00 | NUR ---
RN NOTES SEEN AND EXAMINED BY DR. LYONS, ORDER FOR US GUIDED THORACENTESIS, WILL GET CONSENT. PATIENT A/O X4. NOTED WITH VOMITING, ZOFRAN GIVEN VIA IV. REFUSED MOST MEDICATION, SEE EMAR. WILL CONTINUE TO MONITOR.
[2021-02-26] MEDS: ASPIRIN EC 81 MG TABLET.DR PO SCH (09:19)
[2021-02-26] MEDS: PANTOPRAZOLE 40 MG TABLET.DR PO SCH (09:20)
[2021-02-26] MEDS: SPIRONOLACTONE 25 MG TABLET PO SCH ×2 (09:20→16:08)
[2021-02-26] MEDS: LEVOTHYROXINE SODIUM 25 MCG TABLET PO SCH (09:20)
[2021-02-26] MEDS: DOCUSATE SODIUM 100 MG CAPSULE PO SCH ×2 (09:20→16:08)
[2021-02-26] MEDS: GABAPENTIN 100 MG CAPSULE PO SCH ×2 (09:20→16:08)
[2021-02-26] MEDS: MULTIVIT W/MINERALS 1 TAB TABLET PO SCH (09:20)
[2021-02-26] MEDS: CLOTRIMAZOLE 1% 15 GM TUBE TP SCH ×2 (09:26→16:09)
[2021-02-26] MEDS: Z GUARD REMEDY 2 OZ OINT TP SCH (09:27)
[2021-02-26] MEDS ORDERED: Magnesium 1GM/D5W 100ML PREMIX 100 ML IV SCH (09:30)
[2021-02-26] MEDS: FUROSEMIDE 40 MG/4 ML VIAL IV SCH ×3 (10:50→17:31)
[2021-02-26] MEDS: POTASSIUM CHLORIDE 20 MEQ TAB.PRT.SR PO SCH ×3 (10:50→13:05)
[2021-02-26] MEDS: INSULIN REGULAR, HUMAN 100 UNIT/ML 3 ML VIAL SQ PRN ×3 (11:29→22:20)
[2021-02-26 12:00] VITALS: BP 111/82
[2021-02-26] MEDS: FERRLICET 125MG in 100 ML NS IVPB IV SCH (13:37)
[2021-02-26 16:00] VITALS: BP 122/64
--- NOTE | 2021-02-26 16:30 | NUR ---
rn notes s/p US guided paracentesis with 5L output, tolerated the procedure, no signs of distress noted. will continue to monitor.
[2021-02-26] MEDS: VANCOMYCIN 0.75 GM in IV D5W 250 ML IV SCH (17:13)
--- NOTE | 2021-02-26 18:39 | NUR ---
RN NOTES Patient in bed resting comfortably in moderate high back rest. a/o x4, able to make needs known, on RA, tolerating well, no signs of distress noted throughout the shift, S/P Paracentesis with 5l of output, IV access on ILA PICC line. intact and patent. Safety measures maintained, bed in lowest locked position with side rails up x2, call light within reach, will endorse to night patrol inspector nurse for carroll.
--- NOTE | 2021-02-26 19:05 | NUR ---
RN NOTES: RECEIVED AWAKE ON BED, SON VISITED HIM WHILE DOING ENDORSEMENT, A/OX4, ABLE TO VERBALIZED NEEDS, SHE JUST HAD PARACENTESIS THIS MORNING OUTPUT-5 LITERS, NWB ON BLE, ILA PICC LINE PATENT, ASSISTED BY HAND SEWER TO USE BEDSIDE COMMODE, NO COMPLAINTS OF PAIN OR DISCOMFORT, ACTIVITY TOLERATED .-ORIENTED TO UNIT AND STAFF ,FALL,SAFETY AND ASPIRATION PRECAUTION OBSERVED, KEPT CALL LIGHT WITHIN EASY REACH.
[2021-02-26 20:00] VITALS: BP 98/54
[2021-02-26] MEDS: FLUCONAZOLE (100 MG) 100 MG TABLET PO SCH (20:31)
--- NOTE | 2021-02-26 22:34 | NUR ---
RN NOTES: --AT 2300 BLOOD SUGAR-166, DUE LANTUS GIVEN, REGULAR INSULIN GIVEN PER SCALE, WILL CONTINUE TO MONITOR FOR SIGN OF HYPER AND HYPOGLYCEMIA. --AT 2233 COMPLAINED OF SEVERE PAIN AFTER SHE GET UP AND PEE IN THE COMMODE , ASSISTED, PAIN MEDICATION GIVEN PER PATIENT REQUEST SPO2-95%.
[2021-02-27] VITALS: BP 100/70
[2021-02-27] MEDS: LACTULOSE 10 G/15 ML UDC (PYXIS) PO SCH ×4 (00:17→18:21)
--- NOTE | 2021-02-27 01:35 | NUR ---
RN NOTES: ASLEEP AT SHORT INTERVAL, NO COMPLAINTS OF PAIN OR DISCOMFORT ABLE TO REST AND SLEEP, KEPT CALL LIGHT WITHIN EASY REACH.
--- NOTE | 2021-02-27 03:12 | NUR ---
RN NOTES: AWAKE IN BETWEEN, ASSISTED TO THE COMMODE BY CIRCULATING PROCESS INSPECTOR, LATEST TEMP-99, SHE LIKE HER ROOM TO BE WARM REFUSED TO OPEN AIR CON. -BP RECHECKED AT 0100 BP-100/70
[2021-02-27 04:00] VITALS: BP 146/83
--- NOTE | 2021-02-27 04:23 | NUR ---
RN NOTES: AWAKE SHE IS CRYING SHE SAID"PAIN MEDICATION ONLY HELPS A LITTLE I NEED ANOTHER SHOT", V/S CHECKED FIRST EXPLAINED TO HER HER PREVIOUS BP WAS A LITTLE BIT LOW BP-106/55 SPO2-96%RA AR-83. PAIN MEDICATION GIVEN PER PATIENT REQUEST,NON PAHRMACOLOGIC INTERVENTION RENDERED.
[2021-02-27] MEDS: MORPHINE SULFATE INJ 2 MG/ML DISP.SYRIN IV PRN ×2 (04:25→20:42)
--- NOTE | 2021-02-27 06:09 | NUR ---
RN NOTES: AT 425PM WHILE CHECKING HER V/S SHE WAS AWAKEN AND SHE COMPLAINED OF PAIN IN HER LEG, SHE DONT WANT TO DO DRESSING RIGHT NOW, PAIN 10/10, ASKED FOR HER PAIN MEDICATION SHE VERBALIZED "SEE I COULD NOT EVEN GET ANY SLEEP,ONLY A LITTLE AND I FELT THE PAIN AGAIN".NON PHARMACOLOGIC INTERVENTION RENDERED. --EXPLAINED TO HER THAT SHE WILL BE TRANSFERRED TO ROOM 119-2, INITIALLY SHE REFUSE BUT AFTER EXPLAINED TO HER WITH THE HELP OF CN/RN SHE AGREED BEFORE THE END OF THE SHIFT.
[2021-02-27 06:37] LABS: ALBUMIN 1.7 g/dL (3.4-5.0); BILIRUBIN,TOTAL 1.7 mg/dL (0.2-1.0); CALCIUM, SERUM 7.6 mg/dL (8.5-10.1); CREATININE 1.6 mg/dL (0.6-1.3); MAGNESIUM 1.8 mg/dL (1.8-2.4); PHOSPHORUS 3.1 mg/dL (2.5-4.9); POTASSIUM 3.8 mmol/L (3.5-5.1); TOTAL PROTEIN, SERUM 5.8 g/dL (6.4-8.2)
--- NOTE | 2021-02-27 06:37 | NUR ---
RN NOTES: -TRANSFERRED FROM ROOM 104 TO ROOM 119-2, SHE EXPRESS HER DELIGHFULLNESS FOR THE CARE RENDERED TO HER, SHE DRINK HER LACTULOSE WITH APPLE JUICE.REQUEST FOR TV TO BE REPAIRED ITS NOT FUNCTIONING WELL SHE WANTS A CLOCK IN HER ROOM. COMMUNICATE TO (MERCHANDISE PRESENTATION ASSOCIATE) TO HELP FACILITATE PATIENT NEEDS, ALSO NOTIFIED RN/CN. -ALL PATIENT BELONGINGS BROUGHT WITH HER INCLUDING HER 5 BOTTLES OF ASCITIC FLUID (EXTRACTED FROM PARACENTESIS).
[2021-02-27 07:08] LABS: BASOPHILS # (AUTO) 0.1 K/uL (0.0-0.2); BASOPHILS % (AUTO) 1.5 % (0.0-2.0); EOSINOPHILS % (AUTO) 4.1 % (0.0-6.0); HEMATOCRIT 21 % (33-45); LYMPHOCYTES # (AUTO) 0.9 K/uL (0.8-4.8); LYMPHOCYTES % (AUTO) 21.2 % (20.0-44.0); MEAN CORPUSCULAR HGB CONC 33 g/dl (31.0-36.0); MEAN CORPUSCULAR VOLUME 76 fL (82-100); MONOCYTES # (AUTO) 0.6 K/uL (0.1-1.30); NEUTROPHILS # (AUTO) 2.7 K/uL (1.8-8.9); NEUTROPHILS % (AUTO) 60.2 % (43.0-81.0); PLATELET COUNT (AUTO) 82 K/uL (150-450); RED BLOOD CELL COUNT(AUTO) 2.77 MIL/uL (4.0-5.2); WHITE BLOOD COUNT (AUTO) 4.4 K/uL (4.3-11.0)
[2021-02-27] MEDS: LEVOTHYROXINE SODIUM 25 MCG TABLET PO SCH (07:30)
[2021-02-27 07:32] LABS: HEMOGLOBIN 6.9 g/dL (11.5-14.8)
--- NOTE | 2021-02-27 07:44 | NUR ---
RN NOTES: NO SIGN OF SOB, NO PAIN OR DISCOMFORT, TRYING TO TAKE A NAP,ON ROOM AIR SPO2-92%LAB TEST DONE, ENDORSED TO F/U RESULT,ENDORSED FOR CONTINUITY OF CARE.
[2021-02-27] MEDS: BLOOD SUGAR DIAGNOSTIC 1 EACH STRIP IN SCH ×4 (07:55→22:39)
[2021-02-27 08:00] VITALS: BP 96/50
--- NOTE | 2021-02-27 08:08 | NUR ---
MS RN OPENING NOTES RECEIVED PATIENT IN BED, AWAKE, A/O X4. PATIENT ON ROOM AIR; BREATHING EVEN AND UNLABORED, NO SOB NOTED AT THIS TIME. NO COMPLAINS OF PAIN. ILA PICC INTACT AND IN PLACE; SL. SAFETY PRECAUTIONS IN PLACE; BED IN LOW POSITION AND LOCKED, RAILS UP X2, CALL LIGHT WITHIN REACH. WILL CONTINUE TO MONITOR PATIENT.
--- NOTE | 2021-02-27 08:20 | NUR ---
MS RN NOTES PATIENT NOTIFIED ABOUT HER HEMOGLOBIN LEVEL OF 6.9 AND NEED FOR BLOOD TRANSFUSION. PATIENT SAID SHE DOES NOT FEEL LIKE SHE NEEDS BLOOD TRANSFUSION RIGHT NOW AND IS REFUSING IT AT THIS TIME.
[2021-02-27] MEDS: MULTIVIT W/MINERALS 1 TAB TABLET PO SCH (08:28)
[2021-02-27] MEDS: DOCUSATE SODIUM 100 MG CAPSULE PO SCH ×2 (08:29→16:46)
[2021-02-27] MEDS: RIFAXIMIN 550 MG TABLET PO SCH ×2 (08:29→20:43)
[2021-02-27] MEDS: PANTOPRAZOLE 40 MG TABLET.DR PO SCH (08:30)
[2021-02-27] MEDS: SPIRONOLACTONE 25 MG TABLET PO SCH ×2 (08:30→16:42)
[2021-02-27] MEDS: ASPIRIN EC 81 MG TABLET.DR PO SCH (08:31)
[2021-02-27] MEDS: FLUCONAZOLE (100 MG) 100 MG TABLET PO SCH (08:31)
[2021-02-27] MEDS: GABAPENTIN 100 MG CAPSULE PO SCH ×2 (08:31→16:46)
[2021-02-27] MEDS: HEPARIN SODIUM, PORCINE 5000 UNITS/1 ML VIAL SQ SCH ×2 (08:32→20:43)
[2021-02-27] MEDS: CLOTRIMAZOLE 1% 15 GM TUBE TP SCH ×2 (08:32→16:47)
[2021-02-27] MEDS: Z GUARD REMEDY 2 OZ OINT TP SCH (08:33)
[2021-02-27 10:50] LABS: EOSINOPHILS % (MANUAL) 4 % (0-4); LYMPHOCYTES % (MANUAL) 15 % (16-48); MONOCYTES % (MANUAL) 8 % (0-11.0); NEUTROPHILS % (MANUAL) 73 (42-76)
[2021-02-27 12:06] VITALS: BP 96/50
[2021-02-27] MEDS: FERRLICET 125MG in 100 ML NS IVPB IV SCH (14:19)
[2021-02-27] MEDS: VANCOMYCIN 0.75 GM in IV D5W 250 ML IV SCH (18:21)
[2021-02-27 18:42] VITALS: BP 112/57
--- NOTE | 2021-02-27 19:32 | NUR ---
MS RN CLOSING NOTES PATIENT RESTING IN BED, AWAKE, A/O X4. PATIENT ON ROOM AIR; BREATHING EVEN AND UNLABORED, NO SOB NOTED DURING THE DAY. NO COMPLAINS OF PAIN. ILA PICC INTACT AND IN PLACE; SL. ALL NEEDS ATTENDED DURING THE DAY. SAFETY PRECAUTIONS IN PLACE; BED IN LOW POSITION AND LOCKED, RAILS UP X2, CALL LIGHT WITHIN REACH. WILL ENDORSE TO TEACHER'S ASSISTANT NURSE.
--- NOTE | 2021-02-27 19:45 | NUR ---
PATTERN WORKER OPENING NOTE RECEIVED PATIENT IN BED, AWAKE, A/O X4. PATIENT ON ROOM AIR; BREATHING EVEN AND UNLABORED, NO SOB NOTED AT THIS TIME. COMPLAINS OF PAIN 3/10 ON RIGHT LEG, SHARP AND ACHING. WILL ADMIN PAIN MEDICATION PER MD ORDERS. ILA PICC INTACT AND FLUSHED; SL. SAFETY PRECAUTIONS IN PLACE; BED IN LOW POSITION AND LOCKED, RAILS UP X2, CALL LIGHT WITHIN REACH. NO ACUTE DISTRESS NOTED AT THIS TIME.
[2021-02-27 20:00] VITALS: BP 105/55
--- NOTE | 2021-02-27 20:45 | NUR ---
HEPARIN SQ HELD R/T LOW HGG AND PLT LEVEL. NO S/S OF BLEEDING NOTED AT THIS TIME.
[2021-02-27] MEDS: INSULIN GLARGINE, 100 UNIT/ML CARTRIDGE SQ SCH (22:38)
[2021-02-27] MEDS: ZOLPIDEM TARTRATE 5 MG TABLET PO PRN (22:47)
[2021-02-27] MEDS: INSULIN REGULAR, HUMAN 100 UNIT/ML 3 ML VIAL SQ PRN (22:48)
[2021-02-28] MEDS: LACTULOSE 10 G/15 ML UDC (PYXIS) PO SCH ×4 (01:11→18:04)
[2021-02-28 04:00] VITALS: BP 134/53
[2021-02-28] MEDS: MORPHINE SULFATE INJ 2 MG/ML DISP.SYRIN IV PRN ×2 (04:44→18:13)
[2021-02-28] MEDS ORDERED: LINEZOLID RTU BAG 600 MG in PREMIX 1 EA IV SCH ×2 (06:30→08:00)
--- NOTE | 2021-02-28 07:09 | NUR ---
RN CLOSING NOTES PATIENT RESTING IN BED, AWAKE, A/O X4. PATIENT ON ROOM AIR; BREATHING EVEN AND UNLABORED, NO SOB NOTED DURING THE NIGHT. PAIN ANXIOUS AND RESTLESS R/T TO RIGHT LEG AND FOOT PAIN. MORPHINE 2MG PRN IVP GIVEN AT 2041 AND 443. PT VERBALIZED RELIEF OF PAIN WITH BOTH DOSAGES. PT. ALSO REQUESTED AMBIEN R/T INSOMNIA. ONCE DOSE ADMINISTERED, INSOMNIA SUBSIDED. ILA PICC INTACT AND PATENT; SL. ALL NEEDS ATTENDED DURING THE NIGHT. WOUND CARE COMPLETED PER ORDERS. PT. NON WEIGHT BEARING AND ABLE TO USE BED SIDE COMMODE WITH NURSING ASSISTANCE. PT. LAST HGB LEVEL OF 6.9 NOTED. PT. AWARE OF BLOOD TRANSFUSION NEEDS AND REFUSED. MD AWARE AND HGB TREND TO BE MONITORED. SAFETY PRECAUTIONS IN PLACE; BED IN LOW POSITION AND LOCKED, RAILS UP X2, CALL LIGHT WITHIN REACH. NO ACUTE DISTRESS NOTED AT THIS TIME. WILL ENDORSE CONTINUITY OF CARE TO MORNING SHIFT RN.
[2021-02-28 07:24] LABS: CALCIUM, SERUM 7.6 mg/dL (8.5-10.1); CREATININE 1.4 mg/dL (0.6-1.3); POTASSIUM 3.8 mmol/L (3.5-5.1)
--- NOTE | 2021-02-28 07:25 | NUR ---
RN OPENING NOTES RECEIVED PT IN BED, A/O X4. STABLE ON ROOM AIR. NO SOB OR ANY S/S OF RESPIRATORY DISTRESS NOTED AT THIS TIME. NO COMPLAINS OF PAIN. ILA PICC LINE INTACT, PATENT AND FLUSHED. USES BEDSIDE COMMODE WITH ASSIST. SAFETY PRECAUTIONS IN PLACE. CALL LIGHT WITHIN REACH. BED LOCKED AND IN LOWEST POSITION WITH SIDE RAILS UP X2. WILL CONTINUE TO MONITOR.
[2021-02-28 08:09] LABS: BASOPHILS % (AUTO) 0.6 % (0.0-2.0); EOSINOPHILS % (AUTO) 4.1 % (0.0-6.0); HEMATOCRIT 22 % (33-45); HEMOGLOBIN 7.2 g/dL (11.5-14.8); LYMPHOCYTES # (AUTO) 0.9 K/uL (0.8-4.8); LYMPHOCYTES % (AUTO) 19.1 % (20.0-44.0); MEAN CORPUSCULAR HGB CONC 33 g/dl (31.0-36.0); MEAN CORPUSCULAR VOLUME 76 fL (82-100); MONOCYTES # (AUTO) 0.5 K/uL (0.1-1.30); MONOCYTES % (AUTO) 11.3 % (2.0-12.0); NEUTROPHILS % (AUTO) 64.9 % (43.0-81.0); PLATELET COUNT (AUTO) 86 K/uL (150-450); RED BLOOD CELL COUNT(AUTO) 2.92 MIL/uL (4.0-5.2); WHITE BLOOD COUNT (AUTO) 4.6 K/uL (4.3-11.0)
[2021-02-28] MEDS ORDERED: FLUC100T8 PO (08:33)
[2021-02-28] MEDS: HEPARIN SODIUM, PORCINE 5000 UNITS/1 ML VIAL SQ SCH (09:00)
[2021-02-28] MEDS: BLOOD SUGAR DIAGNOSTIC 1 EACH STRIP IN SCH ×3 (09:26→18:02)
[2021-02-28] MEDS: PANTOPRAZOLE 40 MG TABLET.DR PO SCH (09:26)
[2021-02-28] MEDS: LEVOTHYROXINE SODIUM 25 MCG TABLET PO SCH (09:27)
[2021-02-28] MEDS: DOCUSATE SODIUM 100 MG CAPSULE PO SCH ×2 (09:27→17:34)
[2021-02-28] MEDS: FLUCONAZOLE (100 MG) 100 MG TABLET PO SCH (09:27)
[2021-02-28] MEDS: SPIRONOLACTONE 25 MG TABLET PO SCH ×2 (09:27→17:32)
[2021-02-28] MEDS: ASPIRIN EC 81 MG TABLET.DR PO SCH (09:27)
[2021-02-28] MEDS: CLOTRIMAZOLE 1% 15 GM TUBE TP SCH ×2 (09:28→18:04)
[2021-02-28] MEDS: MULTIVIT W/MINERALS 1 TAB TABLET PO SCH (09:28)
[2021-02-28] MEDS: RIFAXIMIN 550 MG TABLET PO SCH (09:28)
[2021-02-28] MEDS: GABAPENTIN 100 MG CAPSULE PO SCH ×2 (09:28→17:34)
[2021-02-28] MEDS: Z GUARD REMEDY 2 OZ OINT TP SCH (09:29)
[2021-02-28] MEDS ORDERED: DAPT500V2 IV (09:39)
[2021-02-28 11:07] LABS: EOSINOPHILS % (MANUAL) 3 % (0-4); LYMPHOCYTES % (MANUAL) 20 % (16-48); MONOCYTES % (MANUAL) 8 % (0-11.0); NEUTROPHILS % (MANUAL) 69 (42-76)
[2021-02-28 12:00] VITALS: BP 110/51
[2021-02-28] MEDS: FERRLICET 125MG in 100 ML NS IVPB IV SCH (14:52)
--- NOTE | 2021-02-28 19:29 | NUR ---
DISCHARGE NOTES PATIENT D/C HOME IN STABLE CONDITION, PICC LINE IN PLACE PATENT, DRESSING CLEAN DRY AND INTACT. D/C INSTRUCTIONS GIVEN, VERBALIZES UNDERSTANDING. PICKED UP BY AMBULANCE VIA GURNEY. PICTURES TAKEN FOR WOUND AND PLACED IN CHART.
== END 2021-02-28 19:55 | disposition home health service (06) | DRG 432 ==
LOC: ER 18:10 → TELE1 21:34 → MEDSG1 02-26 00:46
PROVIDERS: ADMIT Internal Medicine; ATTEND Internal Medicine
PROC: 0W9G3ZZ Drainage of Peritoneal Cavity, Percutaneous Approach (ICD-10-PCS; principal; 2021-02-23)
PROC: 0W9G3ZZ Drainage of Peritoneal Cavity, Percutaneous Approach (ICD-10-PCS; 2021-02-26)
DX: K74.60 Unspecified cirrhosis of liver (principal); N17.0 Acute kidney failure with tubular necrosis; E43 Unspecified severe protein-calorie malnutrition; K76.7 Hepatorenal syndrome; Z68.42 Body mass index [BMI] 45.0-49.9, adult; L03.116 Cellulitis of left lower limb; L03.115 Cellulitis of right lower limb; M86.8X7 Other osteomyelitis, ankle and foot; I50.30 Unspecified diastolic (congestive) heart failure; R18.8 Other ascites; D63.8 Anemia in other chronic diseases classified elsewhere; E78.5 Hyperlipidemia, unspecified; E11.69 Type 2 diabetes mellitus with other specified complication; E11.65 Type 2 diabetes mellitus with hyperglycemia; I25.10 Atherosclerotic heart disease of native coronary artery without angina pectoris; I11.0 Hypertensive heart disease with heart failure; E03.9 Hypothyroidism, unspecified; E66.01 Morbid (severe) obesity due to excess calories; E83.39 Other disorders of phosphorus metabolism; E88.09 Other disorders of plasma-protein metabolism, not elsewhere classified; K72.90 Hepatic failure, unspecified without coma; F32.9 Major depressive disorder, single episode, unspecified; F41.9 Anxiety disorder, unspecified; E11.42 Type 2 diabetes mellitus with diabetic polyneuropathy; E11.621 Type 2 diabetes mellitus with foot ulcer; L97.529 Non-pressure chronic ulcer of other part of left foot with unspecified severity; L97.519 Non-pressure chronic ulcer of other part of right foot with unspecified severity; Z79.4 Long term (current) use of insulin; B95.2 Enterococcus as the cause of diseases classified elsewhere; B95.8 Unspecified staphylococcus as the cause of diseases classified elsewhere
CPT/HCPCS: 36415; 71045-TC; 73610-TC; 73630-TC; 76942-TC; 80048-TC; 80053-TC; 80061-TC; 80076-TC; 80202-TC; 81001; 82140-TC; 82570-TC; 82962-TC; 83540-TC; 83615-TC; 83735-TC; 83880; 84100-TC; 84300-TC; 84484-TC; 85025-TC; 85027-TC; 85652-TC; 85730-TC; 86140-TC; 86708; 86709; 86803; 86850-TC; 87070-TC; 87081-TC; 87086-TC; 87186-TC; 88108-TC; 88305-TC; 89051-TC; 93307-TC; 93970-TC; 97110-TC; 97112-TC; 97530-TC; A4216; A6403; C9803; G0378; J0692; J1644; J1756; J1815; J1940; J2020; J2060; J2270; J2405; J2916; J3370; J3475; J7030; J7050; J7060; P9047; U0003

== ENCOUNTER 2021-03-03 14:56 | Emergency (ER) | payer MEDICARE, OTHER ==
[~2021-03-03] VITALS: Ht 154.9 cm; Wt 93.0 kg
[~2021-03-03 14:56] MED LIST changes: +DAPT500V2 IV; +FLUC100T8 PO; -VANC750F2 IV
--- NOTE | 2021-03-03 15:10 | NUR ---
Patient came in with ILA picc line malfunction that needs replacement. Aox4, no sob noted, no s/o any acute distress. able to to make needs known. denies pain at this time. breathing even and unlabored. Dr Crouch at bedside. will continue with plan of care
--- NOTE | 2021-03-03 15:28 | NUR ---
PICC LINE CONSENT OBTAINED AT THIS TIME, SIGNED BY PATIENT.
--- NOTE | 2021-03-03 15:41 | NUR ---
ILA PICC LINE INSERTED AT THIS TIME BY PICC LINE NURSE.
[2021-03-03 16:58] VITALS: BP 110/67
--- NOTE | 2021-03-03 16:59 | NUR ---
Patient discharged to home in stable condition. Written and verbal after care instructions given. Patient verbalizes understanding of instruction.
== END 2021-03-03 17:00 | disposition home or self-care (01) ==
LOC: ER 14:56
DX: T82.514A Breakdown (mechanical) of infusion catheter, initial encounter (principal); M86.8X6 Other osteomyelitis, lower leg; I10 Essential (primary) hypertension; E11.9 Type 2 diabetes mellitus without complications; Z90.89 Acquired absence of other organs; Z79.899 Other long term (current) drug therapy; Z79.84 Long term (current) use of oral hypoglycemic drugs; Z79.82 Long term (current) use of aspirin
CPT/HCPCS: 71045-TC

== ENCOUNTER 2021-03-19 12:21 | Inpatient (IN) | payer MEDICARE, OTHER ==
[~2021-03-19] VITALS: Ht 157.5 cm; Wt 86.2 kg
--- NOTE | 2021-03-19 13:01 | NUR ---
ADRIANA FROM HOME TO ER BED 3. AAOX4. NOT IN RESP DISTRESS. BROUGHT IN FOR ABD PAIN WHICH SHE STATES FEELS LIKE WHEN SHE NEED TO BE DRAINED. PT HAS HX OF ASCITES. PAIN IS 7/10. LAST TAP WAS DONE ABOUT 2 WEEKS AGO. PT ALSO IS REPORTING DIZZYNESS AND NAUSEA. AWAITING MD FOR EVAL
[2021-03-19 13:44] LABS: BASOPHILS % (AUTO) 0.8 % (0.0-2.0); HEMATOCRIT 23 % (33-45); HEMOGLOBIN 7.5 g/dL (11.5-14.8); MEAN CORPUSCULAR VOLUME 75 fL (82-100); MONOCYTES # (AUTO) 0.5 K/uL (0.1-1.30)
[2021-03-19 13:47] LABS: EOSINOPHILS % (AUTO) 2.6 % (0.0-6.0); LYMPHOCYTES % (AUTO) 17.6 % (20.0-44.0); MEAN CORPUSCULAR HGB CONC 32 g/dl (31.0-36.0); MONOCYTES % (AUTO) 8.3 % (2.0-12.0); NEUTROPHILS # (AUTO) 4.1 K/uL (1.8-8.9); NEUTROPHILS % (AUTO) 70.7 % (43.0-81.0); PLATELET COUNT (AUTO) 134 K/uL (150-450); WHITE BLOOD COUNT (AUTO) 5.9 K/uL (4.3-11.0)
--- NOTE | 2021-03-19 14:00 | NUR ---
PATIENT UNABLE TO GIVE URINE AT THIS TIME
[2021-03-19 14:06] LABS: CALCIUM, SERUM 8.1 mg/dL (8.5-10.1); CARBON DIOXIDE 23 mmol/L (21-32); CHLORIDE 110 mmol/L (98-107); CREATININE 1.3 mg/dL (0.6-1.3); GLUCOSE 150 mg/dL (74-106); POTASSIUM 3.5 mmol/L (3.5-5.1); SODIUM SERUM 143 mmol/L (136-145); UREA NITROGEN, BLOOD 23 mg/dL (7-18)
[2021-03-19 14:11] LABS: ALANINE AMINOTRANSFERASE 14 U/L (12-78); ALBUMIN 1.9 g/dL (3.4-5.0); ALKALINE PHOSPHATASE 175 U/L (46-116); ASPARTATE AMINOTRANSFERASE 25 U/L (15-37); BILIRUBIN,DIRECT 0.4 mg/dL (0.0-0.2); TOTAL PROTEIN, SERUM 7.2 g/dL (6.4-8.2)
[2021-03-19] MEDS ORDERED: DULO30CA2 PO (15:05)
[2021-03-19] MEDS ORDERED: BENA20TA9 PO (15:05)
[2021-03-19] MEDS ORDERED: FERR325T23 PO (15:05)
[2021-03-19] MEDS ORDERED: DICL75TA5 PO (15:05)
[2021-03-19] MEDS ORDERED: ALEN70TA80 PO (15:05)
[2021-03-19] MEDS ORDERED: INSU300I SQ (15:05)
[2021-03-19] MEDS ORDERED: MAGN400T26 PO (15:05)
[2021-03-19] MEDS ORDERED: CARV12.52 PO (15:05)
[2021-03-19] MEDS ORDERED: TRAM50TA2 PO (15:05)
[2021-03-19] MEDS ORDERED: INSU100V3 SQ (15:05)
[2021-03-19] MEDS ORDERED: DULA1.5P SQ (15:05)
[2021-03-19] MEDS ORDERED: CHOL100062 PO (15:05)
[2021-03-19 15:12] LABS: NEUTROPHILS % (MANUAL) 68 (42-76)
[2021-03-19 15:13] LABS: BAND % (MANUAL) 1 % (0.0-5.0); EOSINOPHILS % (MANUAL) 2 % (0-4); LYMPHOCYTES % (MANUAL) 19 % (16-48); METAMYELOCYTES % 1 % (0-0); MONOCYTES % (MANUAL) 9 % (0-11.0)
--- NOTE | 2021-03-19 15:37 | NUR ---
CALLED NURSING SUP FOR M/S BED.
[2021-03-19] MEDS ORDERED: DEXTROSE 50%-WATER 50 ML DISP.SYRIN IV PRN (16:00)
[2021-03-19] MEDS ORDERED: Z GUARD REMEDY 2 OZ OINT TP PRN (16:00)
[2021-03-19] MEDS ORDERED: ALBUMIN 25% 12.5 GM/50 ML BOTTLE IV PRN (16:00)
[2021-03-19] MEDS ORDERED: *INSULIN REGULAR(HUMULIN R)HUM 100 UNIT/ML VIAL SQ PRN (16:00)
[2021-03-19] MEDS ORDERED: ONDANSETRON HCL/PF 4 MG/2 ML VIAL IVP PRN (16:00)
[2021-03-19] MEDS: CARVEDILOL 12.5 MG TABLET PO SCH (17:00)
[2021-03-19] MEDS: TRAMADOL HCL 50 MG TABLET PO SCH (17:00)
[2021-03-19] MEDS: BENAZEPRIL HCL 20 MG TABLET PO SCH (17:00)
--- NOTE | 2021-03-19 17:02 | NUR ---
5600 OUTPUT FROM PARACENTESIS, PATIENT TOLERATED PROCEDURE WELL.
--- NOTE | 2021-03-19 17:14 | NUR ---
REPORT GIVEN TO TINO BRUCE FOR MALVIN BED 308-1
[2021-03-19] MEDS: PANTOPRAZOLE 40 MG TABLET.DR PO SCH (18:47)
[2021-03-19] MEDS: FERROUS SULFATE (325 MG) 325 MG/TAB TABLET PO SCH (18:47)
[2021-03-19] MEDS: MAGNESIUM OXIDE 400 MG TABLET PO SCH (18:47)
[2021-03-19] MEDS: BLOOD SUGAR DIAGNOSTIC 1 EACH STRIP VI SCH ×2 (18:51→22:04)
[2021-03-19] MEDS ORDERED: ALBUMIN 25% 25 GM in PREMIX 1 EA IV PRN (19:00)
[2021-03-19 19:01] VITALS: BP 125/65
--- NOTE | 2021-03-19 19:10 | NUR ---
MS/RN ADMITTING NOTE RECEIVED PATIENT RESTING IN BED. PATIENT ARRIVED TO UNIT AT APPROX. 1800 VIA GURNEY AND 2 STAFF MEMBERS. PATIENT IS BEING ADMITTED FOR DX OF HIGH VOLUME ASCITES AND ABDOMINAL PAIN. PATIENT IS ALERT AND ORIENTED X 4. ABLE TO MAKE NEEDS KNOWN. DENIES PAIN AT THIS TIME. CONTINUES ON ROOM AIR WITH NO S/SX OF RESPIRATORY DISTRESS NOTED. IV ACCESS TO RIGHT UPPER ARM PICC LINE INTACT, PATENT AND SALINE LOCKED. SKIN CHECK PERFORMED ON ADMISSION WITH WOUND NOTED TO RIGHT OUTER ANKLE AND LEFT INNER ANKLE. OLD INCISION NOTED TO RIGHT FOOT. PICTURES TAKEN AND PLACED IN CHART. DRESSINGS APPLIED TO OPEN WOUNDS. VS: BP 125/65 HR 78 RR 20 T 97.9 O2 SAT 98% ON ROOM AIR. PATIENT CAN TRANSFER WITH PHYSICAL ASSIST. COMMODE AT BEDSIDE. PATIENT ORIENTED TO ROOM, CALL LIGHT AND UNIT. CALL LIGHT WITHIN REACH. ASPIRATION, FALL AND SAFETY PRECAUTIONS MAINTAINED. WILL CONTINUE TO MONITOR.
[2021-03-19 20:00] VITALS: BP 147/73
[2021-03-20] VITALS (9 sets, daily range): BP systolic 112–126; BP diastolic 61–72
[2021-03-20] MEDS: MORPHINE SULFATE INJ 2 MG/ML DISP.SYRIN IV PRN ×2 (01:42→06:09)
[2021-03-20] MEDS: BLOOD SUGAR DIAGNOSTIC 1 EACH STRIP VI SCH ×4 (06:15→21:15)
[2021-03-20 06:19] LABS: CALCIUM, SERUM 7.5 mg/dL (8.5-10.1); CREATININE 1.1 mg/dL (0.6-1.3); PHOSPHORUS 3.4 mg/dL (2.5-4.9); POTASSIUM 3.5 mmol/L (3.5-5.1)
[2021-03-20 06:53] LABS: BASOPHILS % (AUTO) 0.7 % (0.0-2.0); EOSINOPHILS % (AUTO) 2.6 % (0.0-6.0); HEMATOCRIT 21 % (33-45); LYMPHOCYTES # (AUTO) 0.7 K/uL (0.8-4.8); LYMPHOCYTES % (AUTO) 17.3 % (20.0-44.0); MEAN CORPUSCULAR HGB CONC 33 g/dl (31.0-36.0); MEAN CORPUSCULAR VOLUME 75 fL (82-100); MONOCYTES # (AUTO) 0.3 K/uL (0.1-1.30); MONOCYTES % (AUTO) 8.3 % (2.0-12.0); NEUTROPHILS % (AUTO) 71.1 % (43.0-81.0); PLATELET COUNT (AUTO) 106 K/uL (150-450); RED BLOOD CELL COUNT(AUTO) 2.74 MIL/uL (4.0-5.2); WHITE BLOOD COUNT (AUTO) 4.2 K/uL (4.3-11.0)
[2021-03-20 07:35] LABS: HEMOGLOBIN 6.8 g/dL (11.5-14.8)
--- NOTE | 2021-03-20 07:35 | NUR ---
TEO PATEL FROM THE LAB CALLED REGARDING CRITICAL VALUE OF Hgb 6.8 INFORMED ROOSEVELT NELSON NP AND ORDERED 1 UNIT OF PRBC AND TO OBTAIN OCCULT BLOOD STOOL. ORDER CARRIED OUT.
--- NOTE | 2021-03-20 07:44 | NUR ---
WOUND CARE CONSULT: PT PRESENTS WITH WOUNDS TO BILATERAL FEET, PRESENT ON ADMISSION WITH DRY/INTACT DRESSINGS. PT FOLLOWED BY DR LEMONS FOR PODIATRY WOUND TREATMENT. DEFER TO DPM. PT IS INDEPENDENT WITH BED MOBILITY AND IS CONTINENT. WILL SEE PRN.
[2021-03-20] MEDS: DULOXETINE HCL 30 MG CAPSULE.DR PO SCH (08:46)
[2021-03-20] MEDS: LEVOTHYROXINE SODIUM 25 MCG TABLET PO SCH (08:46)
[2021-03-20] MEDS: PANTOPRAZOLE 40 MG TABLET.DR PO SCH (08:47)
[2021-03-20] MEDS: FERROUS SULFATE (325 MG) 325 MG/TAB TABLET PO SCH ×2 (08:47→16:38)
[2021-03-20] MEDS: CHOLECALCIFEROL 1,000 UNIT TABLET (VIT D3) PO SCH (08:47)
[2021-03-20] MEDS: MAGNESIUM OXIDE 400 MG TABLET PO SCH ×3 (08:47→16:39)
[2021-03-20] MEDS: FUROSEMIDE 40 MG TABLET PO SCH (08:47)
[2021-03-20] MEDS: ASPIRIN EC 81 MG TABLET.DR PO SCH (08:47)
[2021-03-20] MEDS: CARVEDILOL 12.5 MG TABLET PO SCH ×2 (08:56→16:38)
[2021-03-20] MEDS: BENAZEPRIL HCL 20 MG TABLET PO SCH ×2 (08:56→16:39)
[2021-03-20] MEDS: TRAMADOL HCL 50 MG TABLET PO SCH ×2 (08:57→16:39)
[2021-03-20] MEDS: GABAPENTIN 300 MG CAPSULE PO SCH ×3 (08:57→16:39)
[2021-03-20 11:25] LABS: IRON, SERUM 36 ug/dl (50-175); TOTAL IRON BINDING CAPACITY 112 ug/dl (250-450)
[2021-03-20] MEDS ORDERED: MINERAL OIL/PETROLATUM,WHITE 120 GM JAR TP PRN (11:30)
[2021-03-20 11:51] LABS: BILIRUBIN,URINE NEGATIVE (NEGATIVE); COLOR,URINE YELLOW (YELLOW); LEUKOCYTE ESTERASE ,URINE NEGATIVE (NEGATIVE); NITRITE, URINE NEGATIVE (NEGATIVE); PROTEIN,URINE NEGATIVE (NEGATIVE); UGLUCOSE NEGATIVE (NEGATIVE)
[2021-03-20] MEDS: INSULIN REGULAR, HUMAN 100 UNIT/ML 3 ML VIAL SQ PRN ×2 (12:18→16:58)
[2021-03-20 13:47] LABS: BACTERIA,URINE Rare /HPF (None Seen); WBC,URINE 0-2 /HPF (0-3)
--- NOTE | 2021-03-20 14:15 | NUR ---
MRI APPROVED BY DR. PEACOCK,IT WILL DONE TOMORROW AM.
--- NOTE | 2021-03-20 14:49 | NUR ---
RN NOTE STARTED BLOOD TRANSFUSION, 1 UNIT PRBC, CONNECTED TO ILA PICC LINE. NO HEMOLYTIC TRANSFUSION REACTIONS NOTED. WILL CONTINUE TO MONITOR.
[2021-03-20 15:08] LABS: EOSINOPHILS % (MANUAL) 3 % (0-4); LYMPHOCYTES % (MANUAL) 15 % (16-48); MONOCYTES % (MANUAL) 6 % (0-11.0); NEUTROPHILS % (MANUAL) 76 (42-76)
[2021-03-20] MEDS: SOD FERRIC GLUC 125 MG in IV NS 0.9% 100 ML IV SCH (15:18)
[2021-03-20] MEDS: CLOTRIMAZOLE 1% 15 GM TUBE TP SCH (16:32)
--- NOTE | 2021-03-20 16:39 | NUR ---
RN NOTE PT REFUSED PM MEDS. PT SAID SHE DOESN'T FEEL WELL AND SHE'S BEEN HAVING STOMACH UPSET. EXPLAINED ALL RISKS AND BENEFITS BUT PT STILL REFUSED.
--- NOTE | 2021-03-20 18:04 | NUR ---
End of Shift Summary Patient resting in bed. a/o x4. On room air, no sob noted. No s/s of respiratory distress. Denies any pain or discomfort at this time. IV access right upper arm picc line, intact and patent. Due meds given as ordered. All needs have been met and attended. Safety measures maintained. Bed in lowest position, brakes locked. Side rails up x2. Call light within reach. Will endorse continuity of care to oncoming shift.
--- NOTE | 2021-03-20 18:46 | NUR ---
RN NOTE ENDED BLOOD TRANSFUSION. VS BP 126/71 WY 82 RR 18 T 98.6, NO SIGNS OF HEMOLYTIC REACTIONS.
--- NOTE | 2021-03-20 18:55 | NUR ---
RN NOTE PT COMPLAINING OF DIZZINESS. INFORMED ROOSEVELT NELSON NP AND ORDERED MECLIZINE 25 MG PO Q8H PRN. ORDER CARRIED OUT.
--- NOTE | 2021-03-20 19:10 | NUR ---
MS/RN OPENING NOTE RECEIVED PATIENT RESTING IN BED. AWAKE, ALERT AND ORIENTED X 4. ABLE TO MAKE NEEDS KNOWN. COMPLAINTS OF DIZZINESS - NEW ORDER FOR MECLIZINE PRN IN PLACE. WILL ADMINISTER. PATIENT CONTINUES ON ROOM AIR WITH NO S/SX OF RESPIRATORY DISTRESS NOTED. IV ACCESS TO RIGHT UPPER ARM PICC LINE INTACT, PATENT AND SALINE LOCKED. CALL LIGHT WITHIN REACH. ASPIRATION, FALL AND SAFETY PRECAUTIONS MAINTAINED. WILL CONTINUE TO MONITOR.
[2021-03-20] MEDS: MECLIZINE HCL 12.5 MG TABLET PO PRN (19:39)
[2021-03-21] MEDS: MORPHINE SULFATE INJ 2 MG/ML DISP.SYRIN IV PRN (03:08)
--- NOTE | 2021-03-21 06:25 | NUR ---
MS/RN CLOSING NOTE PATIENT CURRENTLY RESTING IN BED. AWAKE, ALERT AND ORIENTED X 4. ABLE TO MAKE NEEDS KNOWN. DENIES PAIN AT THIS TIME. PATIENT CONTINUES ON ROOM AIR WITH NO S/SX OF RESPIRATORY DISTRESS NOTED. IV ACCESS TO RIGHT UPPER ARM PICC LINE INTACT, PATENT AND SALINE LOCKED. BLOOD GLUCOSE THIS AM IS 96. CALL LIGHT WITHIN REACH. ASPIRATION, FALL AND SAFETY PRECAUTIONS MAINTAINED. WILL ENDORSE PLAN OF CARE TO ONCOMING SHIFT.
[2021-03-21 06:44] LABS: BASOPHILS % (AUTO) 0.6 % (0.0-2.0); EOSINOPHILS % (AUTO) 3.1 % (0.0-6.0); HEMATOCRIT 25 % (33-45); HEMOGLOBIN 8.3 g/dL (11.5-14.8); LYMPHOCYTES # (AUTO) 0.9 K/uL (0.8-4.8); LYMPHOCYTES % (AUTO) 21.8 % (20.0-44.0); MEAN CORPUSCULAR HGB CONC 33 g/dl (31.0-36.0); MEAN CORPUSCULAR VOLUME 77 fL (82-100); MONOCYTES # (AUTO) 0.4 K/uL (0.1-1.30); MONOCYTES % (AUTO) 10.2 % (2.0-12.0); NEUTROPHILS # (AUTO) 2.7 K/uL (1.8-8.9); NEUTROPHILS % (AUTO) 64.3 % (43.0-81.0); PLATELET COUNT (AUTO) 111 K/uL (150-450); WHITE BLOOD COUNT (AUTO) 4.2 K/uL (4.3-11.0)
[2021-03-21] MEDS: BLOOD SUGAR DIAGNOSTIC 1 EACH STRIP VI SCH ×4 (06:49→21:25)
[2021-03-21 07:16] LABS: CALCIUM, SERUM 7.8 mg/dL (8.5-10.1); CREATININE 1.1 mg/dL (0.6-1.3); POTASSIUM 3.9 mmol/L (3.5-5.1)
[2021-03-21 08:00] VITALS: BP 139/72
--- NOTE | 2021-03-21 08:00 | NUR ---
RECEIVED PATIENT RESTING IN BED. AWAKE, ALERT AND ORIENTED X 4. ABLE TO MAKE NEEDS KNOWN. PATIENT CONTINUES ON ROOM AIR WITH NO OF RESPIRATORY DISTRESS NOTED. IV ACCESS TO RIGHT UPPER ARM PICC LINE INTACT, PATENT AND SALINE LOCKED. CALL LIGHT WITHIN REACH. ASPIRATION, FALL AND SAFETY PRECAUTIONS MAINTAINED. WILL CONTINUE TO MONITOR.
[2021-03-21] MEDS: PANTOPRAZOLE 40 MG TABLET.DR PO SCH (08:02)
[2021-03-21] MEDS: LEVOTHYROXINE SODIUM 25 MCG TABLET PO SCH (08:02)
[2021-03-21] MEDS: CARVEDILOL 12.5 MG TABLET PO SCH ×2 (08:19→17:00)
[2021-03-21] MEDS: MAGNESIUM OXIDE 400 MG TABLET PO SCH ×3 (08:19→17:00)
[2021-03-21] MEDS: FERROUS SULFATE (325 MG) 325 MG/TAB TABLET PO SCH ×2 (08:20→17:00)
[2021-03-21] MEDS: ASPIRIN EC 81 MG TABLET.DR PO SCH (08:20)
[2021-03-21] MEDS: CHOLECALCIFEROL 1,000 UNIT TABLET (VIT D3) PO SCH (08:20)
[2021-03-21] MEDS: FUROSEMIDE 40 MG TABLET PO SCH (08:20)
[2021-03-21] MEDS: DULOXETINE HCL 30 MG CAPSULE.DR PO SCH (08:22)
[2021-03-21] MEDS: BENAZEPRIL HCL 20 MG TABLET PO SCH ×2 (08:22→17:00)
[2021-03-21] MEDS: GABAPENTIN 300 MG CAPSULE PO SCH ×3 (08:23→17:00)
[2021-03-21] MEDS: TRAMADOL HCL 50 MG TABLET PO SCH ×2 (08:23→17:00)
[2021-03-21] MEDS: CLOTRIMAZOLE 1% 15 GM TUBE TP SCH ×2 (08:24→17:00)
[2021-03-21] MEDS: HYDROGEL DRESSING 90 GM TUBE TP SCH (08:24)
--- NOTE | 2021-03-21 09:05 | NUR ---
PT LEFT UNIT FOR MRI. NO DISTRESS NOTED.
--- NOTE | 2021-03-21 11:45 | NUR ---
PT RETURNED FROM MRI. NO DISTRESS NOTED.
[2021-03-21] MEDS ORDERED: DAPTOMYCIN 500 MG in IV NS 0.9% 50 ML IV SCH (12:30)
[2021-03-21] MEDS: MECLIZINE HCL 12.5 MG TABLET PO PRN (12:42)
[2021-03-21] MEDS: FLUCONAZOLE (100 MG) 100 MG TABLET PO SCH (12:45)
[2021-03-21] MEDS: SOD FERRIC GLUC 125 MG in IV NS 0.9% 100 ML IV SCH (14:23)
[2021-03-21 16:00] VITALS: BP 113/60
--- NOTE | 2021-03-21 18:00 | NUR ---
Patient resting in bed. a/o x4. On room air, no sob noted. No s/s of respiratory distress. Denies any pain or discomfort at this time. IV access right upper arm picc line, intact and patent. Pt refused afternoon meds, states she will take noc meds. Wound care done as ordered. All needs have been met and attended. Safety measures maintained. Bed in lowest position, brakes locked. Side rails up x2. Call light within reach. Will endorse continuity of care to oncoming shift.
[2021-03-21] MEDS: INSULIN REGULAR, HUMAN 100 UNIT/ML 3 ML VIAL SQ PRN (18:05)
--- NOTE | 2021-03-21 19:25 | NUR ---
MS RN OPENING NOTES RECEIVED PT AWAKE IN BED, A/O X4, ABLE TO MAKE NEEDS KNOWN. SHE DENIES ANY PAIN OR DISCOMFORT AT THIS TIME. BREATHING EVEN/UNLABORED, ON ROOM AIR. NOTED PICC LINE TO ILA INTACT, PATENT, FLUSHES WELL, AND DRESSING C/D/I. PT IN NO ACUTE DISTRESS. SAFETY MEASURES IN PLACE, BED IN LOWEST LOCKED POSITION, S/R UP X2, CALL LIGHT AND TABLE WITHIN EASY REACH. WILL CONTINUE TO MONITOR.
[2021-03-21 20:56] VITALS: BP 103/55
[2021-03-21] MEDS: LINEZOLID 600 MG TABLET PO SCH (21:13)
[2021-03-21] MEDS: TEMAZEPAM 15 MG CAPSULE PO PRN (21:40)
[2021-03-22 00:21] LABS: OCCULT BLOOD STOOL POSITIVE (NEGATIVE)
[2021-03-22 06:19] LABS: BASOPHILS % (AUTO) 0.9 % (0.0-2.0); EOSINOPHILS % (AUTO) 2.5 % (0.0-6.0); HEMATOCRIT 24 % (33-45); HEMOGLOBIN 7.9 g/dL (11.5-14.8); LYMPHOCYTES % (AUTO) 22.4 % (20.0-44.0); MEAN CORPUSCULAR HGB CONC 33 g/dl (31.0-36.0); MEAN CORPUSCULAR VOLUME 76 fL (82-100); MONOCYTES # (AUTO) 0.5 K/uL (0.1-1.30); MONOCYTES % (AUTO) 11.6 % (2.0-12.0); NEUTROPHILS # (AUTO) 2.7 K/uL (1.8-8.9); NEUTROPHILS % (AUTO) 62.6 % (43.0-81.0); PLATELET COUNT (AUTO) 103 K/uL (150-450); RED BLOOD CELL COUNT(AUTO) 3.15 MIL/uL (4.0-5.2); WHITE BLOOD COUNT (AUTO) 4.3 K/uL (4.3-11.0)
[2021-03-22 06:20] LABS: CALCIUM, SERUM 7.6 mg/dL (8.5-10.1); CREATININE 1.2 mg/dL (0.6-1.3); MAGNESIUM 1.9 mg/dL (1.8-2.4); POTASSIUM 3.7 mmol/L (3.5-5.1)
[2021-03-22] MEDS: BLOOD SUGAR DIAGNOSTIC 1 EACH STRIP VI SCH ×4 (06:44→21:33)
--- NOTE | 2021-03-22 06:50 | NUR ---
PT RESTING IN BED, EASILY AWAKENS TO STIMULI. A/O X4. ON ROOM AIR. NO SOB. ILA PICC LINE INTACT/PATENT. PT USES BEDSIDE COMMODE, WITH ASSIST PROVIDED. PT IN NO ACUTE DISTRESS. ALL NEEDS ATTENDED TO. SAFETY MEASURES MAINTAINED, BED IN LOWEST LOCKED POSITION, S/R UP X2, CALL LIGHT AND TABLE WITHIN REACH.
[2021-03-22] MEDS: PANTOPRAZOLE 40 MG TABLET.DR PO SCH (07:48)
[2021-03-22] MEDS: LEVOTHYROXINE SODIUM 25 MCG TABLET PO SCH (07:48)
--- NOTE | 2021-03-22 07:53 | NUR ---
Opening Notes: Received pts eating on her room. Responsive to staffs, no sign of distress noted. Will continue to monitor for safety.
[2021-03-22 08:00] VITALS: BP 117/58
[2021-03-22] MEDS: CARVEDILOL 12.5 MG TABLET PO SCH ×2 (09:00→17:00)
[2021-03-22] MEDS: FERROUS SULFATE (325 MG) 325 MG/TAB TABLET PO SCH ×2 (09:00→17:00)
[2021-03-22] MEDS: BENAZEPRIL HCL 20 MG TABLET PO SCH ×2 (09:00→17:00)
[2021-03-22] MEDS: GABAPENTIN 300 MG CAPSULE PO SCH ×3 (09:00→17:00)
[2021-03-22] MEDS: MAGNESIUM OXIDE 400 MG TABLET PO SCH ×3 (09:00→17:00)
[2021-03-22] MEDS: TRAMADOL HCL 50 MG TABLET PO SCH ×2 (09:00→17:00)
[2021-03-22] MEDS: CHOLECALCIFEROL 1,000 UNIT TABLET (VIT D3) PO SCH (09:00)
[2021-03-22] MEDS: ASPIRIN EC 81 MG TABLET.DR PO SCH (09:08)
[2021-03-22] MEDS: FUROSEMIDE 40 MG TABLET PO SCH (09:08)
[2021-03-22] MEDS: FLUCONAZOLE (100 MG) 100 MG TABLET PO SCH (09:11)
[2021-03-22] MEDS: LINEZOLID 600 MG TABLET PO SCH ×2 (09:25→21:33)
[2021-03-22] MEDS: HYDROGEL DRESSING 90 GM TUBE TP SCH (10:58)
[2021-03-22] MEDS: CLOTRIMAZOLE 1% 15 GM TUBE TP SCH ×2 (10:58→17:00)
--- NOTE | 2021-03-22 12:19 | NUR ---
BS is 134 and pt. refused Insulin coverage, was explained on the importance and pt. still refusing.
[2021-03-22] MEDS: SOD FERRIC GLUC 125 MG in IV NS 0.9% 100 ML IV SCH (15:21)
[2021-03-22 16:00] VITALS: BP 116/57
--- NOTE | 2021-03-22 18:30 | NUR ---
BS is 152, pt. refused for Insulin coverage and saying she did not eat much for dinner. Will continue to monitol
--- NOTE | 2021-03-22 19:03 | NUR ---
closing Notes: Pt. is awake in bed, refused meds due for 1700 and refused for Insulin coveraged. Pt. without distress and will endorse to the incoming shift.
--- NOTE | 2021-03-22 19:25 | NUR ---
RN OPENING NOTE PT AWAKE IN BED, WATCHING TV, A/O X4, ABLE TO VERBALIZE ALL NEEDS. SHE DENIES ANY PAIN OR DISCOMFORT AT THIS TIME. PICC LINE ON ILA INTACT/PATENT, FLUSHES WELL, DRESSING C/D/I. PT USES BEDSIDE COMMODE WITH TRANSFER ASSIST PROVIDED. PT IN NO ACUTE DISTRESS. SAFETY MEASURES IN PLACE, BED IN LOWEST LOCKED POSITION, S/R UP X2, CALL LIGHT AND TABLE WITHIN EASY REACH. WILL CONTINUE TO MONITOR.
[2021-03-22 20:00] VITALS: BP_SYST 107; BP_SYST 109; BP_DIAS 59
--- NOTE | 2021-03-22 22:35 | NUR ---
RN NOTES RE-DRESS AND LOOSEN PATIENT'S ROWENA WRAP ON HER RIGHT FOOT, PATIENT STATED SHE FEELS MORE COMFORTABLE
[2021-03-22] MEDS: TEMAZEPAM 15 MG CAPSULE PO PRN (23:48)
[2021-03-23] MEDS: BLOOD SUGAR DIAGNOSTIC 1 EACH STRIP VI SCH ×4 (06:09→22:01)
--- NOTE | 2021-03-23 06:10 | NUR ---
BS 114
--- NOTE | 2021-03-23 06:46 | NUR ---
RN CLOSING NOTES PT RESTING IN BED, LAYING ON L-SIDE, EASILY AWAKENS TO STIMULI. NO C/O PAIN OR DISCOMFORT AT THIS TIME. ON ROOM AIR AND TOLERATING WELL. ILA PICC LINE INTACT, FLUSHES WELL, DRESSING C/D/I. SLEPT WELL DURING THE NIGHT. PT IN NO ACUTE DISTRESS. ALL NEEDS ATTENDED TO.
--- NOTE | 2021-03-23 07:10 | NUR ---
MS RN OPENING NOTE PT ASLEEP ON BED BUT WAKES UP TO CALL, A/O X4, ABLE TO VERBALIZE ALL NEEDS. PATIENT DENIES PAIN OR DISCOMFORT AT THIS TIME. WITH PICC LINE ON ILA PATENT AND INTACT. DRESSING C/D/I. PT USES BEDSIDE COMMODE WITH TRANSFER ASSIST, INSTRUCTED TO CALL FOR ASSISTANCE. FALL PRECAUTIONS DONE. SAFETY MEASURES IN PLACE, BED IN LOWEST LOCKED AND AT LOWEST POSITION, SIDE RAILS UP X2, CALL LIGHT AND TABLE WITHIN REACH. WILL CONTINUE TO MONITOR.
[2021-03-23 07:16] LABS: BASOPHILS % (AUTO) 0.7 % (0.0-2.0); EOSINOPHILS % (AUTO) 3.6 % (0.0-6.0); HEMATOCRIT 26 % (33-45); HEMOGLOBIN 8.6 g/dL (11.5-14.8); LYMPHOCYTES % (AUTO) 22.1 % (20.0-44.0); MEAN CORPUSCULAR HGB CONC 33 g/dl (31.0-36.0); MEAN CORPUSCULAR VOLUME 76 fL (82-100); MONOCYTES # (AUTO) 0.4 K/uL (0.1-1.30); MONOCYTES % (AUTO) 9.2 % (2.0-12.0); NEUTROPHILS % (AUTO) 64.4 % (43.0-81.0); PLATELET COUNT (AUTO) 117 K/uL (150-450); RED BLOOD CELL COUNT(AUTO) 3.43 MIL/uL (4.0-5.2); WHITE BLOOD COUNT (AUTO) 4.7 K/uL (4.3-11.0)
[2021-03-23] MEDS: PANTOPRAZOLE 40 MG TABLET.DR PO SCH (07:30)
[2021-03-23] MEDS: LEVOTHYROXINE SODIUM 25 MCG TABLET PO SCH (07:30)
[2021-03-23 07:39] LABS: CALCIUM, SERUM 7.9 mg/dL (8.5-10.1); CREATININE 1.2 mg/dL (0.6-1.3); MAGNESIUM 1.8 mg/dL (1.8-2.4); POTASSIUM 3.4 mmol/L (3.5-5.1)
[2021-03-23 08:00] VITALS: BP 124/55
[2021-03-23] MEDS: TRAMADOL HCL 50 MG TABLET PO SCH ×2 (08:23→17:00)
[2021-03-23] MEDS: LINEZOLID 600 MG TABLET PO SCH ×2 (08:23→20:55)
[2021-03-23] MEDS: FLUCONAZOLE (100 MG) 100 MG TABLET PO SCH (08:24)
[2021-03-23] MEDS: GABAPENTIN 300 MG CAPSULE PO SCH ×3 (09:00→17:00)
[2021-03-23] MEDS: CHOLECALCIFEROL 1,000 UNIT TABLET (VIT D3) PO SCH (09:00)
[2021-03-23] MEDS: ASPIRIN EC 81 MG TABLET.DR PO SCH (09:00)
[2021-03-23] MEDS: CARVEDILOL 12.5 MG TABLET PO SCH ×2 (09:00→17:00)
[2021-03-23] MEDS: FERROUS SULFATE (325 MG) 325 MG/TAB TABLET PO SCH ×2 (09:00→17:00)
[2021-03-23] MEDS: MAGNESIUM OXIDE 400 MG TABLET PO SCH ×3 (09:00→17:00)
[2021-03-23] MEDS: FUROSEMIDE 40 MG TABLET PO SCH (09:00)
[2021-03-23] MEDS: BENAZEPRIL HCL 20 MG TABLET PO SCH ×2 (09:00→17:00)
[2021-03-23] MEDS ORDERED: POTASSIUM CHLORIDE 20 MEQ TAB.PRT.SR PO SCH (10:00)
[2021-03-23] MEDS: HYDROGEL DRESSING 90 GM TUBE TP SCH (12:41)
[2021-03-23] MEDS: CLOTRIMAZOLE 1% 15 GM TUBE TP SCH ×2 (12:42→17:00)
[2021-03-23] MEDS: SOD FERRIC GLUC 125 MG in IV NS 0.9% 100 ML IV SCH (15:13)
--- NOTE | 2021-03-23 19:03 | NUR ---
MS RN CLOSING NOTE PT ASLEEP ON BED BUT WAKES UP TO CALL, A/O X4, ABLE TO VERBALIZE ALL NEEDS. PATIENT DENIES PAIN OR DISCOMFORT AT THIS TIME. WITH PICC LINE ON ILA PATENT AND INTACT. DRESSING C/D/I. PT USES BEDSIDE COMMODE WITH TRANSFER ASSIST, INSTRUCTED TO CALL FOR ASSISTANCE. FALL PRECAUTIONS DONE. SAFETY MEASURES IN PLACE, BED IN LOWEST LOCKED AND AT LOWEST POSITION, SIDE RAILS UP X2, CALL LIGHT AND TABLE WITHIN REACH. PATIENT IS MOSTLY NON COMPLIANT WITH MD ELIZABETH AWARE. PATIENT WILL HAVE PROCEDURE TOMORROW, CONSENTS SIGNED AND ATTACHED TO CHART. NOT IN DISTRESS. WILL ENDORSE TO NEXT SHIFT FOR CONTINUITY OF CARE.
[2021-03-23 20:00] VITALS: BP 98/53
--- NOTE | 2021-03-23 20:48 | NUR ---
RN OPENING PATIENT IN BED. A/OX4. NO S/S OF APPARENT DISTRESS TOLERATING ROOM AIR. NO C/O PAIN AT THIS TIME. NO FLUIDS AT THIS TIME. SAFETY IN PLACE. WILL CONTINUE TO MONITOR.
--- NOTE | 2021-03-23 22:01 | NUR ---
MS RN NOTES PATIENT BLOOD SUGAR 146. PATIENT REFUSING INSULIN COVERAGE. EVEN WITH PATIENT EDUCATION. PATIENT ACKNOWLEDGED THIS AND PER PATIENT IT IS "OKAY". INITIALLY REFUSING HER 2100 ZYVOX MEDICATION TOO BUT WITH PATIENT EDUCATION AND AGREED TO TAKE IT.
[2021-03-24 06:21] LABS: CALCIUM, SERUM 7.8 mg/dL (8.5-10.1); CREATININE 1.4 mg/dL (0.6-1.3); POTASSIUM 3.7 mmol/L (3.5-5.1)
[2021-03-24 06:23] LABS: BASOPHILS % (AUTO) 0.8 % (0.0-2.0); EOSINOPHILS % (AUTO) 4.3 % (0.0-6.0); HEMATOCRIT 26 % (33-45); HEMOGLOBIN 8.5 g/dL (11.5-14.8); LYMPHOCYTES # (AUTO) 1.2 K/uL (0.8-4.8); LYMPHOCYTES % (AUTO) 24.6 % (20.0-44.0); MEAN CORPUSCULAR HGB CONC 33 g/dl (31.0-36.0); MEAN CORPUSCULAR VOLUME 77 fL (82-100); MONOCYTES # (AUTO) 0.5 K/uL (0.1-1.30); MONOCYTES % (AUTO) 10.3 % (2.0-12.0); NEUTROPHILS # (AUTO) 2.8 K/uL (1.8-8.9); PLATELET COUNT (AUTO) 103 K/uL (150-450); RED BLOOD CELL COUNT(AUTO) 3.39 MIL/uL (4.0-5.2); WHITE BLOOD COUNT (AUTO) 4.7 K/uL (4.3-11.0)
[2021-03-24] MEDS: BLOOD SUGAR DIAGNOSTIC 1 EACH STRIP VI SCH ×4 (06:30→22:02)
--- NOTE | 2021-03-24 07:00 | NUR ---
MS RN OPENING NOTE PT ASLEEP ON BED BUT WAKES UP TO CALL, A/O X4, ABLE TO VERBALIZE ALL NEEDS. PATIENT DENIES PAIN OR DISCOMFORT AT THIS TIME. WITH PICC LINE ON ILA PATENT AND INTACT. WITH LOWER EXTREMITY DRESSING C/D/I. PT USES BEDSIDE COMMODE WITH TRANSFER ASSIST, INSTRUCTED TO CALL FOR ASSISTANCE. PATIENT MAINTAINED ON NPO FOR PENDING PROCEDURE. FALL PRECAUTIONS ENFORCED. SAFETY MEASURES IN PLACE, BED IN LOWEST LOCKED AND AT LOWEST POSITION, SIDE RAILS UP X2, CALL LIGHT AND TABLE WITHIN REACH. WILL CONTINUE TO MONITOR.
[2021-03-24] MEDS: LEVOTHYROXINE SODIUM 25 MCG TABLET PO SCH (07:30)
[2021-03-24] MEDS: PANTOPRAZOLE 40 MG TABLET.DR PO SCH (07:30)
[2021-03-24] MEDS: LINEZOLID 600 MG TABLET PO SCH ×2 (09:00→21:38)
[2021-03-24] MEDS: CARVEDILOL 12.5 MG TABLET PO SCH ×2 (09:00→17:00)
[2021-03-24] MEDS: TRAMADOL HCL 50 MG TABLET PO SCH ×2 (09:00→17:00)
[2021-03-24] MEDS: FERROUS SULFATE (325 MG) 325 MG/TAB TABLET PO SCH ×2 (09:00→17:00)
[2021-03-24] MEDS: CHOLECALCIFEROL 1,000 UNIT TABLET (VIT D3) PO SCH (09:00)
[2021-03-24] MEDS: FUROSEMIDE 40 MG TABLET PO SCH (09:00)
[2021-03-24] MEDS: GABAPENTIN 300 MG CAPSULE PO SCH ×3 (09:00→17:00)
[2021-03-24] MEDS: MAGNESIUM OXIDE 400 MG TABLET PO SCH ×3 (09:00→17:00)
[2021-03-24] MEDS: FLUCONAZOLE (100 MG) 100 MG TABLET PO SCH (09:00)
[2021-03-24] MEDS: ASPIRIN EC 81 MG TABLET.DR PO SCH (09:00)
[2021-03-24] MEDS: BENAZEPRIL HCL 20 MG TABLET PO SCH ×2 (09:00→17:00)
--- NOTE | 2021-03-24 10:30 | NUR ---
MS RN NOTE PATIENT SEEN BY DR. MERCADO. WILL CONTINUE TO MONITOR PATIENT.
[2021-03-24] MEDS: HYDROGEL DRESSING 90 GM TUBE TP SCH (12:30)
[2021-03-24] MEDS: CLOTRIMAZOLE 1% 15 GM TUBE TP SCH ×2 (12:31→17:00)
--- NOTE | 2021-03-24 13:30 | NUR ---
MS RN NOTE PATIENT ACCOMPANIED TO OR FOR SCHEDULED PROCEDURE, TRANSPORTED VIA BED. IN STABLE CONDITION. ENDORSED ACCORDINGLY.
--- NOTE | 2021-03-24 14:30 | NUR ---
MS RN NOTE PATIENT BACK FROM OR WITH ORDER TO CONTINUE PREVIOUS ORDER INCLUDING DIET. IN STABLE CONDITION. WILL CONTINUE TO MONITOR PATIENT.
[2021-03-24] MEDS: SOD FERRIC GLUC 125 MG in IV NS 0.9% 100 ML IV SCH (15:27)
--- NOTE | 2021-03-24 19:00 | NUR ---
MS RN CLOSING NOTE PT ASLEEP ON BED BUT WAKES UP TO CALL, A/O X4, ABLE TO VERBALIZE ALL NEEDS. PATIENT DENIES PAIN OR DISCOMFORT AT THIS TIME. WITH PICC LINE ON ILA PATENT AND INTACT. WITH LOWER EXTREMITY DRESSING C/D/I. PT USES BEDSIDE COMMODE WITH TRANSFER ASSIST, INSTRUCTED TO CALL FOR ASSISTANCE. FALL PRECAUTIONS ENFORCED. SAFETY MEASURES IN PLACE, BED IN LOWEST LOCKED AND AT LOWEST POSITION, SIDE RAILS UP X2, CALL LIGHT AND TABLE WITHIN REACH. WILL ENDORSE TO NEXT SHIFT FOR CONTINUITY OF CARE.
--- NOTE | 2021-03-24 19:40 | NUR ---
RN OPENING PATIENT IN BED WITH EYES CLOSED, EASY TO AROUSE. A/OX4. NO S/S OF APPARENT DISTRESS TOLERATING ROOM AIR. NO C/O PAIN AT THIS TIME. NO FLUIDS AT THIS TIME. SAFETY IN PLACE. WILL CONTINUE TO MONITOR.
[2021-03-24] MEDS: MORPHINE SULFATE INJ 2 MG/ML DISP.SYRIN IV PRN (23:54)
--- NOTE | 2021-03-25 07:10 | NUR ---
MS RN OPENING NOTE PT ASLEEP ON BED BUT WAKES UP TO CALL, A/O X4, ABLE TO VERBALIZE ALL NEEDS. PATIENT DENIES PAIN OR DISCOMFORT AT THIS TIME. WITH PICC LINE ON ILA PATENT AND INTACT. WITH RIGHT LOWER EXTREMITY DRESSING C/D/I. PT USES BEDSIDE COMMODE WITH TRANSFER ASSIST, INSTRUCTED TO CALL FOR ASSISTANCE. FALL PRECAUTIONS ENFORCED. SAFETY MEASURES IN PLACE, BED IN LOWEST LOCKED AND AT LOWEST POSITION, SIDE RAILS UP X2, CALL LIGHT AND TABLE WITHIN REACH. WILL CONTINUE TO MONITOR.
[2021-03-25 07:16] LABS: HEMATOCRIT 27 % (33-45); HEMOGLOBIN 8.6 g/dL (11.5-14.8); LYMPHOCYTES # (AUTO) 1.1 K/uL (0.8-4.8); MEAN CORPUSCULAR HGB CONC 32 g/dl (31.0-36.0); MEAN CORPUSCULAR VOLUME 78 fL (82-100); MONOCYTES # (AUTO) 2.5 K/uL (0.1-1.30); MONOCYTES % (AUTO) 57.1 % (2.0-12.0); NEUTROPHILS # (AUTO) 0.8 K/uL (1.8-8.9); NEUTROPHILS % (AUTO) 17.9 % (43.0-81.0); PLATELET COUNT (AUTO) 91 K/uL (150-450); RED BLOOD CELL COUNT(AUTO) 3.46 MIL/uL (4.0-5.2); WHITE BLOOD COUNT (AUTO) 4.3 K/uL (4.3-11.0)
[2021-03-25] MEDS: LEVOTHYROXINE SODIUM 25 MCG TABLET PO SCH (07:30)
[2021-03-25] MEDS: PANTOPRAZOLE 40 MG TABLET.DR PO SCH (07:30)
[2021-03-25] MEDS: BLOOD SUGAR DIAGNOSTIC 1 EACH STRIP VI SCH ×2 (07:30→12:00)
--- NOTE | 2021-03-25 07:30 | NUR ---
RN CLOSING NOTE REPORT GIVEN TO SG FOR CONTINUITY OF CARE. NO SIGNIFICANT CHANGE WITH PATIENT.
[2021-03-25 07:53] LABS: ALBUMIN 1.5 g/dL (3.4-5.0); BILIRUBIN,TOTAL 1.1 mg/dL (0.2-1.0); CALCIUM, SERUM 8.2 mg/dL (8.5-10.1); CREATININE 1.3 mg/dL (0.6-1.3); MAGNESIUM 2.1 mg/dL (1.8-2.4); PHOSPHORUS 3.6 mg/dL (2.5-4.9); POTASSIUM 3.8 mmol/L (3.5-5.1); TOTAL PROTEIN, SERUM 6.2 g/dL (6.4-8.2)
[2021-03-25 08:00] VITALS: BP 98/51
[2021-03-25 09:00] VITALS: BP 98/51
[2021-03-25] MEDS: FUROSEMIDE 40 MG TABLET PO SCH (09:00)
[2021-03-25] MEDS: MAGNESIUM OXIDE 400 MG TABLET PO SCH ×2 (09:00→13:00)
[2021-03-25] MEDS: HYDROGEL DRESSING 90 GM TUBE TP SCH (09:00)
[2021-03-25] MEDS: FERROUS SULFATE (325 MG) 325 MG/TAB TABLET PO SCH (09:00)
[2021-03-25] MEDS: ASPIRIN EC 81 MG TABLET.DR PO SCH (09:00)
[2021-03-25] MEDS: CLOTRIMAZOLE 1% 15 GM TUBE TP SCH (09:00)
[2021-03-25] MEDS: BENAZEPRIL HCL 20 MG TABLET PO SCH (09:00)
[2021-03-25] MEDS: CARVEDILOL 12.5 MG TABLET PO SCH (09:00)
[2021-03-25] MEDS: CHOLECALCIFEROL 1,000 UNIT TABLET (VIT D3) PO SCH (09:00)
--- NOTE | 2021-03-25 09:00 | NUR ---
OPHTHALMIC TECHNOLOGIST NOTE PATIENT WITH BP OF 174/112 AND HR OF 74. PATIENT GIVEN PRN MEDICATION OF HYDRALAZINE AND ALSO THE STANDING ORDER OF LASIX. PROVIDED WITH CALM AND QUIET ENVIRONMENT. ENCOURAGED TO DO DEEP BREATHING EXERCISES. PATIENT VERBALIZED DESIRE TO GO HOME TODAY. HE SAID HE HAVE TO GO TODAY BECAUSE HE NEEDS TO WORK TOMORROW OTHERWISE HE IS GOING TO LOSE HIS BENEFITS. PATIENT INSTRUCTED TO RELAX AND WAIT FOR THE DOCTOR'S VISIT TODAY. PATIENT DENIES ANY SIGNS AND SYMPTOMS OF HYPERTENSION. WILL CONTINUE TO MONITOR PATIENT. Addendum: 03/25/21 at 1004 by SG ANGEL RN PLS DISREGARD - WRONG PATIENT.
[2021-03-25] MEDS: LINEZOLID 600 MG TABLET PO SCH (09:25)
[2021-03-25] MEDS: GABAPENTIN 300 MG CAPSULE PO SCH ×2 (09:25→13:00)
[2021-03-25] MEDS: FLUCONAZOLE (100 MG) 100 MG TABLET PO SCH (09:25)
[2021-03-25] MEDS: TRAMADOL HCL 50 MG TABLET PO SCH (09:26)
--- NOTE | 2021-03-25 12:30 | NUR ---
MS RN NOTE PATIENT SEEN BY DR. NELSON WITH ORDER FOR DISCHARGE. HEALTH TEACHING DONE REGARDING DISCHARGE INSTRUCTIONS/ ORDERS. VERBALIZED UNDERSTANDING AND APPRECIATION. PATIENT APPARENTLY WAS GETTING IV ATB AT HOME FOR WOUND AND HAD PICC LINE PRIOR TO ADMISSION. DR. NELSON AWARE AND ORDERED TO KEEP IV PICC LINE ON DISCHARGE. WILL CONTINUE MONITORING PATIENT
[2021-03-25] MEDS ORDERED: OMEP20TA20 PO (12:34)
[2021-03-25] MEDS ORDERED: ASCO500T21 PO (12:34)
--- NOTE | 2021-03-25 13:00 | NUR ---
MS RN NOTE WOUND CARE DONE AND PROCEDURE TOLERATED WELL. PATIENT SIGNED INVENTORY LIST AND INSTURCTIONS AND ATTACHED TO CHART. IN STABLE CONDITION. AWAITING SON FOR PICK-UP.
--- NOTE | 2021-03-25 16:00 | NUR ---
MS RN NOTE PATIENT DISCHARGED ORDERED, IN STABLE CONDITION. PATIENT WITH NO COMPLAIN OF PAIN OR NO SIGNS OF DISTRESS. PATIENT ACCOMPANIED BY NURSE SANDRA TO LOBBY ON A WHEELCHAIR AND WAS PICKED UP BY SON VIA PRIVATE CAR. ENDORSED ACCORDINGLY.
[2021-03-26 15:06] LABS: *SPE A/G RATIO 0.5 (0.7-1.7); *SPE ALBUMIN 1.9 g/dL (2.9-4.4); *SPE ALPHA-1-GLOBULIN 0.2 g/dL (0.0-0.4); *SPE ALPHA-2-GLOBULIN 0.4 g/dL (0.4-1.0); *SPE BETA GLOBULIN 0.9 g/dL (0.7-1.3); *SPE GLOBULIN, TOTAL 3.8 g/dL (2.2-3.9); *SPE M-SPIKE 0.6 g/dL (Not Observed); *SPEGAMMA GLOBULIN 2.3 g/dL (0.4-1.8)
== END 2021-03-25 16:50 | disposition home health service (06) | DRG 432 ==
LOC: ER 12:41 → MED 17:47
PROVIDERS: ADMIT Nurse Practitioner Acute Care; ATTEND Nurse Practitioner Family
PROC: 0W9G3ZZ Drainage of Peritoneal Cavity, Percutaneous Approach (ICD-10-PCS; principal; 2021-03-19)
PROC: 30233N1 Transfusion of Nonautologous Red Blood Cells into Peripheral Vein, Percutaneous Approach (ICD-10-PCS; 2021-03-20)
PROC: 0DB68ZX Excision of Stomach, Via Natural or Artificial Opening Endoscopic, Diagnostic (ICD-10-PCS; 2021-03-25)
DX: K74.60 Unspecified cirrhosis of liver (principal); N17.0 Acute kidney failure with tubular necrosis; I85.11 Secondary esophageal varices with bleeding; K25.4 Chronic or unspecified gastric ulcer with hemorrhage; R18.8 Other ascites; D68.59 Other primary thrombophilia; M86.8X7 Other osteomyelitis, ankle and foot; L97.518 Non-pressure chronic ulcer of other part of right foot with other specified severity; K76.6 Portal hypertension; E11.621 Type 2 diabetes mellitus with foot ulcer; I25.10 Atherosclerotic heart disease of native coronary artery without angina pectoris; D50.9 Iron deficiency anemia, unspecified; E11.42 Type 2 diabetes mellitus with diabetic polyneuropathy; E03.9 Hypothyroidism, unspecified; D69.6 Thrombocytopenia, unspecified; F32.9 Major depressive disorder, single episode, unspecified; E78.5 Hyperlipidemia, unspecified; E66.9 Obesity, unspecified; Z68.34 Body mass index [BMI] 34.0-34.9, adult; E87.6 Hypokalemia; E11.69 Type 2 diabetes mellitus with other specified complication; E11.610 Type 2 diabetes mellitus with diabetic neuropathic arthropathy; N13.9 Obstructive and reflux uropathy, unspecified; K31.89 Other diseases of stomach and duodenum; Z74.09 Other reduced mobility; K44.9 Diaphragmatic hernia without obstruction or gangrene; Z79.84 Long term (current) use of oral hypoglycemic drugs; I10 Essential (primary) hypertension; Z20.822 Contact with and (suspected) exposure to COVID-19
CPT/HCPCS: 36415; 71045-TC; 73630-TC; 73718-TC; 73721-TC; 76942-TC; 80048-TC; 80053-TC; 80061-TC; 80076-TC; 81001; 82140-TC; 82272-TC; 82550-TC; 82962-TC; 83540-TC; 83690-TC; 83735-TC; 83970; 84100-TC; 84155; 84165; 84484-TC; 85025-TC; 85652-TC; 85730-TC; 86140-TC; 86850-TC; 87081-TC; 88305-TC; 88313-TC; 88342; A4216; A4217; A6248; A6403; C9803; G0378; J1815; J2270; J2405; J2704; J2916; J3490; J7030; J7050; J8597; P9016; P9047

== ENCOUNTER 2021-03-27 14:30 | Outpatient (CLI) | payer MEDICARE, OTHER ==
[~2021-03-27 14:30] MED LIST changes: -ACET-868 PO; +ALEN70TA80 PO; +ASCO500T21 PO; +BENA20TA9 PO; -BISA10SU11 RC; +CARV12.52 PO; +CHOL100062 PO; -DAPT500V2 IV; -DOCU-141 PO; +DULA1.5P SQ; +DULO30CA2 PO; -ENOX30DI SQ; +FERR325T23 PO; -FLUC100T8 PO; -HYDR-3980 PO; -HYDR-4209 PO; +INSU100V3 SQ; -INSU100V42 SQ; -INSU100V7 SQ; +INSU300I SQ; -LISI-768 PO; +MAGN400T26 PO; -MULT-447 PO; +OMEP20TA20 PO; -PANT40TA2 PO; -POLY17PO4 PO; -SPIR25TA PO; +TRAM50TA2 PO
== END 2021-03-27 23:59 | disposition home health service (06) ==
LOC: WOU 14:30
PROVIDERS: ATTEND Podiatrist Foot & Ankle Surgery
DX: E11.622 Type 2 diabetes mellitus with other skin ulcer (principal); L97.322 Non-pressure chronic ulcer of left ankle with fat layer exposed; L97.315 Non-pressure chronic ulcer of right ankle with muscle involvement without evidence of necrosis; L97.512 Non-pressure chronic ulcer of other part of right foot with fat layer exposed; E11.610 Type 2 diabetes mellitus with diabetic neuropathic arthropathy; E11.69 Type 2 diabetes mellitus with other specified complication; M86.271 Subacute osteomyelitis, right ankle and foot; M86.272 Subacute osteomyelitis, left ankle and foot; Z79.4 Long term (current) use of insulin; Z79.899 Other long term (current) drug therapy
CPT/HCPCS: 11042; 11043

== ENCOUNTER 2021-04-10 14:00 | Outpatient (CLI) | payer MEDICARE, OTHER ==
[2021-04-10 15:05] LABS: BASOPHILS % (AUTO) 0.5 % (0.0-2.0); EOSINOPHILS % (AUTO) 3.3 % (0.0-6.0); HEMATOCRIT 25 % (33-45); HEMOGLOBIN 8.1 g/dL (11.5-14.8); LYMPHOCYTES % (AUTO) 25.5 % (20.0-44.0); MEAN CORPUSCULAR HGB CONC 33 g/dl (31.0-36.0); MEAN CORPUSCULAR VOLUME 76 fL (82-100); MONOCYTES # (AUTO) 0.3 K/uL (0.1-1.30); MONOCYTES % (AUTO) 6.8 % (2.0-12.0); NEUTROPHILS # (AUTO) 2.6 K/uL (1.8-8.9); NEUTROPHILS % (AUTO) 63.9 % (43.0-81.0); PLATELET COUNT (AUTO) 99 K/uL (150-450); RED BLOOD CELL COUNT(AUTO) 3.26 MIL/uL (4.0-5.2)
[2021-04-10 15:11] LABS: ALBUMIN 1.9 g/dL (3.4-5.0); CALCIUM, SERUM 7.5 mg/dL (8.5-10.1); CREATININE 1.3 mg/dL (0.6-1.3); POTASSIUM 3.5 mmol/L (3.5-5.1)
[2021-04-10 15:14] LABS: C-REACTIVE PROTEIN 1.7 mg/dL (0.0-0.9)
== END 2021-04-10 23:59 | disposition home health service (06) ==
LOC: WOU 14:00
PROVIDERS: ATTEND Podiatrist Foot & Ankle Surgery
DX: E11.621 Type 2 diabetes mellitus with foot ulcer (principal); E11.622 Type 2 diabetes mellitus with other skin ulcer; L97.512 Non-pressure chronic ulcer of other part of right foot with fat layer exposed; L97.322 Non-pressure chronic ulcer of left ankle with fat layer exposed; L97.315 Non-pressure chronic ulcer of right ankle with muscle involvement without evidence of necrosis; E11.610 Type 2 diabetes mellitus with diabetic neuropathic arthropathy; E11.69 Type 2 diabetes mellitus with other specified complication; M86.271 Subacute osteomyelitis, right ankle and foot; M86.272 Subacute osteomyelitis, left ankle and foot; Z79.4 Long term (current) use of insulin; Z79.899 Other long term (current) drug therapy
CPT/HCPCS: 11042; 36415; 80048-TC; 82040-TC; 85025-TC; 85652-TC; 86140-TC

== ENCOUNTER 2021-05-01 13:05 | Outpatient (CLI) | payer MEDICARE, OTHER | END 2021-05-01 23:59 | disposition home health service (06) | LOC: WOU 13:05 | PROVIDERS: ATTEND Podiatrist Foot & Ankle Surgery | DX: E11.621 Type 2 diabetes mellitus with foot ulcer (principal); E11.622 Type 2 diabetes mellitus with other skin ulcer; L97.312 Non-pressure chronic ulcer of right ankle with fat layer exposed; L97.512 Non-pressure chronic ulcer of other part of right foot with fat layer exposed; E11.610 Type 2 diabetes mellitus with diabetic neuropathic arthropathy; E11.42 Type 2 diabetes mellitus with diabetic polyneuropathy; E11.69 Type 2 diabetes mellitus with other specified complication; M86.272 Subacute osteomyelitis, left ankle and foot; M86.271 Subacute osteomyelitis, right ankle and foot; R60.0 Localized edema; Z79.4 Long term (current) use of insulin; Z79.899 Other long term (current) drug therapy; K74.60 Unspecified cirrhosis of liver | CPT/HCPCS: 11042; 73610-TC; 73630-TC ==

== ENCOUNTER 2022-07-21 16:45 | Inpatient (IN) | payer MEDICARE, OTHER ==
[~2022-07-21] VITALS: Ht 162.6 cm; Wt 81.9 kg
[2022-07-21] MEDS: BLOOD SUGAR DIAGNOSTIC 1 EACH STRIP VI SCH (01:00)
--- NOTE | 2022-07-21 16:55 | NUR ---
PT SEEN BY DR REGALADO FOR EVAL
[2022-07-21] MEDS ORDERED: ONDANSETRON HCL/PF - ER 4 MG/2 ML VIAL IV ONE (17:00)
[2022-07-21] MEDS ORDERED: HYDROMORPHONE 1 MG/1 ML DISP.SYRIN IV ONE ×2 (17:00→20:00)
[2022-07-21] MEDS ORDERED: ONDANSETRON HCL/PF 4 MG/2 ML VIAL ONE (17:23)
[2022-07-21] MEDS ORDERED: HYDROMORPHONE 1 MG/1 ML DISP.SYRIN ONE ×2 (17:24→20:10)
[2022-07-21 17:53] LABS: BASOPHILS % (AUTO) 0.1 % (0.0-2.0); EOSINOPHILS % (AUTO) 0.1 % (0.0-6.0); HEMATOCRIT 31 % (33-45); HEMOGLOBIN 9.9 g/dL (11.5-14.8); LYMPHOCYTES # (AUTO) 0.2 K/uL (0.8-4.8); LYMPHOCYTES % (AUTO) 3.2 % (20.0-44.0); MEAN CORPUSCULAR HGB CONC 32 g/dl (31.0-36.0); MEAN CORPUSCULAR VOLUME 75 fL (82-100); MONOCYTES # (AUTO) 0.5 K/uL (0.1-1.30); MONOCYTES % (AUTO) 6.9 % (2.0-12.0); NEUTROPHILS # (AUTO) 6.3 K/uL (1.8-8.9); NEUTROPHILS % (AUTO) 89.7 % (43.0-81.0); PLATELET COUNT (AUTO) 101 K/uL (150-450); RED BLOOD CELL COUNT(AUTO) 4.12 MIL/uL (4.0-5.2)
[2022-07-21 18:02] LABS: CALCIUM, SERUM 8.2 mg/dL (8.5-10.1); CREATININE 1.4 mg/dL (0.6-1.3); POTASSIUM 4.6 mmol/L (3.5-5.1)
--- NOTE | 2022-07-21 18:03 | NUR ---
GLUCOSE = [id number] MADE AWARE
[2022-07-21] MEDS ORDERED: INSULIN REGULAR, HUMAN 100 UNIT/ML 10 ML VIAL SQ ONE (18:30)
[2022-07-21] MEDS ORDERED: IV NS 0.9% 1,000 ML BAG IV ONE (18:30)
--- NOTE | 2022-07-21 18:35 | NUR ---
TAKEN TO CT
[2022-07-21] MEDS ORDERED: INSULIN REGULAR, HUMAN 100 UNIT/ML 10 ML VIAL ONE (18:43)
--- NOTE | 2022-07-21 20:00 | NUR ---
PATENT UNABLE TO TOLERATE HEAD CT PER SWEEPER DRIVER, ER MADE AWARE
--- NOTE | 2022-07-21 20:26 | NUR ---
URINE COLLECTED SENT TO LAB
[2022-07-21 20:41] LABS: BILIRUBIN,URINE NEGATIVE (NEGATIVE); COLOR,URINE YELLOW (YELLOW); LEUKOCYTE ESTERASE ,URINE NEGATIVE (NEGATIVE); NITRITE, URINE NEGATIVE (NEGATIVE); PH,URINE 6.5 (5.0-8.0); PROTEIN,URINE NEGATIVE (NEGATIVE); UGLUCOSE NEGATIVE (NEGATIVE); UROBILINOGEN,URINE 0.2 EU/dL (0.2)
--- NOTE | 2022-07-21 20:46 | NUR ---
COVID SWAB COLLECTED
[2022-07-21 21:07] LABS: ALBUMIN 2.5 g/dL (3.4-5.0); BILIRUBIN,TOTAL 3.3 mg/dL (0.2-1.0); TOTAL PROTEIN, SERUM 6.7 g/dL (6.4-8.2)
[2022-07-21] MEDS ORDERED: ZOLPIDEM TARTRATE 5 MG TABLET PO PRN (21:30)
[2022-07-21] MEDS ORDERED: MAG HYDROX/AL HYDROX/SIMETH 30 ML UDC PO PRN (21:30)
[2022-07-21] MEDS ORDERED: HYDROMORPHONE INJ 2 MG/ML DISP.SYRIN IV PRN (21:30)
[2022-07-21] MEDS ORDERED: DEXTROSE 50%-WATER 50 ML DISP.SYRIN IV PRN (21:30)
[2022-07-21] MEDS ORDERED: Z GUARD REMEDY 4 OZ OINT TP PRN (21:30)
[2022-07-21] MEDS ORDERED: MAGNESIUM HYDROXIDE 30 ML UDC PO PRN (21:30)
[2022-07-21 22:04] LABS: BACTERIA,URINE None seen /HPF (None Seen); RBC,URINE 0-2 /HPF (0-2); SQUAMOUS EPITHELIAL CELL,UR 0-2 /HPF (None Seen); WBC,URINE 0-2 /HPF (0-3)
[2022-07-21 22:12] LABS: BAND % (MANUAL) 2 % (0.0-5.0); LYMPHOCYTES % (MANUAL) 7 % (16-48); MONOCYTES % (MANUAL) 4 % (0-11.0); NEUTROPHILS % (MANUAL) 87 (42-76)
[2022-07-22] MEDS ORDERED: INSULIN REGULAR, HUMAN 100 UNIT/ML 10 ML VIAL ONE (01:08)
[2022-07-22] MEDS: *INSULIN REGULAR(HUMULIN R)HUM 100 UNIT/ML VIAL SQ PRN ×2 (01:10→21:37)
[2022-07-22] MEDS ORDERED: LORAZEPAM INJ 2 MG/ML VIAL ONE (01:28)
[2022-07-22] MEDS ORDERED: LORAZEPAM INJ 2 MG/ML VIAL IV ONE (01:30)
[2022-07-22] MEDS: IV NS 0.9% 1,000 ML IV PRN ×2 (01:39→09:40)
[2022-07-22 05:59] LABS: BASOPHILS # (AUTO) 0.1 K/uL (0.0-0.2); BASOPHILS % (AUTO) 0.9 % (0.0-2.0); EOSINOPHILS % (AUTO) 0.1 % (0.0-6.0); HEMATOCRIT 34 % (33-45); HEMOGLOBIN 10.5 g/dL (11.5-14.8); LYMPHOCYTES # (AUTO) 0.4 K/uL (0.8-4.8); LYMPHOCYTES % (AUTO) 3.7 % (20.0-44.0); MEAN CORPUSCULAR HGB CONC 31 g/dl (31.0-36.0); MEAN CORPUSCULAR VOLUME 76 fL (82-100); MONOCYTES # (AUTO) 0.8 K/uL (0.1-1.30); MONOCYTES % (AUTO) 7.3 % (2.0-12.0); NEUTROPHILS # (AUTO) 9.9 K/uL (1.8-8.9); PLATELET COUNT (AUTO) 107 K/uL (150-450); RED BLOOD CELL COUNT(AUTO) 4.41 MIL/uL (4.0-5.2); WHITE BLOOD COUNT (AUTO) 11.2 K/uL (4.3-11.0)
[2022-07-22 06:15] LABS: ALBUMIN 2.2 g/dL (3.4-5.0); BILIRUBIN,TOTAL 3.1 mg/dL (0.2-1.0); CALCIUM, SERUM 7.9 mg/dL (8.5-10.1); CREATININE 1.3 mg/dL (0.6-1.3); MAGNESIUM 2.2 mg/dL (1.8-2.4); PHOSPHORUS 3.3 mg/dL (2.5-4.9); POTASSIUM 5.1 mmol/L (3.5-5.1); TOTAL PROTEIN, SERUM 6.6 g/dL (6.4-8.2)
[2022-07-22] MEDS: LEVOTHYROXINE SODIUM 25 MCG TABLET PO SCH (07:30)
--- NOTE | 2022-07-22 07:43 | NUR ---
GOT BED 324-1
--- NOTE | 2022-07-22 08:48 | NUR ---
report given to floor nurse ulises
[2022-07-22 09:00] VITALS: BP 131/78
[2022-07-22] MEDS: CHOLECALCIFEROL 1,000 UNIT TABLET (VIT D3) PO SCH (09:00)
[2022-07-22] MEDS: LACTULOSE 10 G/15 ML UDC (PYXIS) PO SCH ×3 (09:00→17:00)
[2022-07-22] MEDS: ASPIRIN EC 81 MG TABLET.DR PO SCH (09:00)
[2022-07-22] MEDS: GABAPENTIN 100 MG CAPSULE PO SCH ×3 (09:00→17:00)
[2022-07-22] MEDS: CARVEDILOL 12.5 MG TABLET PO SCH ×2 (09:00→17:00)
[2022-07-22] MEDS: BENAZEPRIL HCL 20 MG TABLET PO SCH ×2 (09:00→17:00)
[2022-07-22] MEDS: INSULIN GLARGINE, 100 UNIT/ML CARTRIDGE SQ SCH (09:00)
[2022-07-22] MEDS: DULOXETINE HCL 30 MG CAPSULE.DR PO SCH (09:00)
[2022-07-22] MEDS: ASCORBIC ACID 500 MG TABLET PO SCH (09:00)
[2022-07-22] MEDS: FERROUS SULFATE (325 MG) 325 MG/TAB TABLET PO SCH ×2 (09:00→17:00)
[2022-07-22] MEDS ORDERED: ALENDRONATE 70 MG TABLET PO SCH (09:00)
[2022-07-22] MEDS: MAGNESIUM OXIDE 400 MG TABLET PO SCH ×3 (09:00→17:00)
[2022-07-22] MEDS: HYDROMORPHONE 1 MG/1 ML DISP.SYRIN IV PRN (09:12)
[2022-07-22] MEDS: PANTOPRAZOLE 40 MG VIAL IV SCH (09:15)
[2022-07-22] MEDS: INSULIN REGULAR, HUMAN 100 UNIT/ML 3 ML VIAL SQ PRN ×2 (09:39→11:49)
[2022-07-22] MEDS: BLOOD SUGAR DIAGNOSTIC 1 EACH STRIP VI SCH ×4 (09:39→21:36)
--- NOTE | 2022-07-22 10:30 | NUR ---
SCALE TECHNICIAN NOTE ADMITTED THIS 67 Y/O FEMALE PATIENT FROM ER @0900, ACCOMPANIED BY ER STAFF TEO BOURNE. PATIENT IS AWAKE, A/O X1, VERBALLY RESPONSIVE. NO SIGNS OF ACUTE DISTRESS NOTED. PATIENT CURRENTLY CRYING, SCREAMING. C/O PAIN BUT UNABLE TO POINT WHERE THE PAIN IS. NOTED WITH IV ACCESS ON RIGHT HAND #22G INTACT AND PATENT, STARTED ON IVF OF NS @ 90ML/HR. SKIN ASSESSMENT DONE. NOTED WITH UTERINE PROLAPSE, SACRAL EXCORIATION, RIGHT FOOT 2ND TOE ABRASION AND LEFT FOOT REDNESS. PLACED PATIENT ON PROFESSIONAL PROGRAMMER ANALYST, SHOWING AFIB, HR @ 102. CALLED PATIENT'S SON JOHNY AND MADE AWARE OF PATIENT'S ADMISSION TO THE FLOOR. SAFETY MEASURE IN PLACE. BED IN LOWEST AND LOCKED POSITION. SIDE RAILS UP X3, CALL LIGHT PLACED WITHIN EASY REACH. WILL CONTINUE TO MONITOR.
--- NOTE | 2022-07-22 10:39 | NUR ---
WOUND CARE CONSULT: RECEIVED CONSULT FOR CHRONIC LOWER EXTREMITY WOUND BUT PT NOTED TO HAVE INTACT SKIN WITH SOME DRY SCABS TO LOWER LEGS, PRESENT ON ADMISSION. UTERINE PROLAPSE NOTED. PT IS INCONTINENT OF URINE. RECOMMENDATIONS MADE FOR SKIN PROTECTION. DEFER TO PMD FOR UTERINE PROLAPSE. MD IN AGREEMENT WITH PLAN OF CARE.
--- NOTE | 2022-07-22 11:15 | NUR ---
RN NOTE ALL MORNING MEDS NOT ADMINISTERED. PATIENT NOTED LETHARGIC, WITH RISK OF ASPIRATION. PATIENT REMAINS ON NPO.
--- NOTE | 2022-07-22 13:00 | NUR ---
RN NOTE ALL NOON MEDS NOT ADMINISTERED. PATIENT NOTED LETHARGIC, WITH RISK OF ASPIRATION. PATIENT REMAINS ON NPO.
--- NOTE | 2022-07-22 13:09 | NUR ---
RN NOTE PATIENT NOTED TO HAVE UNCONTROLLED AFIB, HR ON HIGH 150'S. DR. NIKUNJ GOLDSTEIN MADE AWARE WITH ORDERS, CARRIED OUT.
[2022-07-22] MEDS ORDERED: AMIODARONE 150 MG in IV D5W 100 ML IV ONE (13:30)
--- NOTE | 2022-07-22 14:07 | NUR ---
RN NOTE PATIENT TRANSFERRED TO [facility] ROOM 119-1 VIA ACLS PROTOCOL. BEDSIDE REPORT GIVEN TO TEO CABRERA.
[2022-07-22] MEDS: AMIODARONE 450 MG in IV D5W 241 ML IV PRN ×2 (15:37→21:40)
--- NOTE | 2022-07-22 15:40 | NUR ---
amio drip loading dose given. bp 100/56 p-83 post loading dose. afib on tele reading.
--- NOTE | 2022-07-22 19:35 | NUR ---
RECEIVED PATIENT ON AMIODARONE DRIP INFUSING AT 1MG/HR, NSR IN TELE MONITOR WITH HR 100S, WILL CONTINUE TO MONITOR CLOSELY.
--- NOTE | 2022-07-22 19:46 | NUR ---
RN NOTE PT RESTING IN BED, IN ROOM AIR. WITH ONGOING AMIODARONE DRIP 1MG. SON AT BEDSIDE. WILL ENDORSE TO NEXT RN. SAFETY MEASURES MAINTAINED.
[2022-07-22 20:00] VITALS: BP 124/69
--- NOTE | 2022-07-22 21:40 | NUR ---
DECREASED AMIODARONE DRIP TO 0.5MG AT THIS TIME, WILL CONTINUE TO MONITOR CLOSELY, HR CONTINUE 100S AT THIS TIME.
[2022-07-23] VITALS: BP 103/61
[2022-07-23] MEDS: HYDROMORPHONE 1 MG/1 ML DISP.SYRIN IV PRN ×3 (00:14→15:57)
[2022-07-23 04:00] VITALS: BP 115/55
--- NOTE | 2022-07-23 06:43 | NUR ---
END OF SHIFT, PATIENT SLEEPING AT THIS TIME, PLACED PT ON 2LPM VIA NC, DUE TO PT WITH O2 91%, AFTER THAT O2 95%, CONTINUE ON AMIODARONE DRIP AT 0.5MG, UNTIL THE REST OF THE 24HR THERAPY, MAINTAINED BLOOD PRESSURE AND NSR IN TELE MONITOR WITH HR 80-90S, ALL SAFETY MEASURES IN PLACE, BED LOCKED AND LOWEST POSITION, KEPT PT DRY AND CLEAN, CALL LIGHT WITHIN REACH, WILL ENDORSE CONTINUITY OF CARE TO ONCOMING NURSE.
[2022-07-23] MEDS: LEVOTHYROXINE SODIUM 25 MCG TABLET PO SCH (07:30)
[2022-07-23] MEDS: BLOOD SUGAR DIAGNOSTIC 1 EACH STRIP VI SCH ×4 (07:46→22:28)
[2022-07-23 08:00] VITALS: BP 116/54
[2022-07-23] MEDS: DULOXETINE HCL 30 MG CAPSULE.DR PO SCH (08:07)
[2022-07-23] MEDS: ASPIRIN EC 81 MG TABLET.DR PO SCH (08:07)
[2022-07-23] MEDS: CHOLECALCIFEROL 1,000 UNIT TABLET (VIT D3) PO SCH (08:07)
[2022-07-23] MEDS: MAGNESIUM OXIDE 400 MG TABLET PO SCH ×3 (08:07→16:19)
[2022-07-23] MEDS: BENAZEPRIL HCL 20 MG TABLET PO SCH ×2 (08:07→16:27)
[2022-07-23] MEDS: LACTULOSE 10 G/15 ML UDC (PYXIS) PO SCH ×3 (08:07→16:19)
[2022-07-23] MEDS: GABAPENTIN 100 MG CAPSULE PO SCH ×3 (08:07→16:19)
[2022-07-23] MEDS: FERROUS SULFATE (325 MG) 325 MG/TAB TABLET PO SCH ×2 (08:07→16:21)
[2022-07-23] MEDS: ASCORBIC ACID 500 MG TABLET PO SCH (08:07)
[2022-07-23] MEDS: CARVEDILOL 12.5 MG TABLET PO SCH ×2 (08:07→16:27)
[2022-07-23] MEDS: PANTOPRAZOLE 40 MG VIAL IV SCH (08:15)
[2022-07-23] MEDS: IV NS 0.9% 1,000 ML IV PRN (08:41)
[2022-07-23] MEDS: INSULIN GLARGINE, 100 UNIT/ML CARTRIDGE SQ SCH (11:42)
[2022-07-23] MEDS: INSULIN REGULAR, HUMAN 100 UNIT/ML 3 ML VIAL SQ PRN ×3 (11:43→16:42)
[2022-07-23 12:00] VITALS: BP 106/62
--- NOTE | 2022-07-23 12:47 | NUR ---
RN NOTE BLOOD SUGAR 438, RECHECKED AT 408. DNP MIRTA NOTIFIED.
--- NOTE | 2022-07-23 13:16 | NUR ---
RN NOTE PER DNP MIRTA, GIVE EXTRA 7 UNIT REGULAR INSULIN SUBCUT FOR BLOOD SUGAR 408. PT SINUS RHYTHM, PER DNP MIRTA D/C AMIODARONE DRIP AND PLACED PT ON AMIODARONE BID PO.
[2022-07-23] MEDS ORDERED: INSULIN REGULAR, HUMAN 100 UNIT/ML 10 ML VIAL SQ ONE (13:30)
[2022-07-23 16:00] VITALS: BP 106/56
[2022-07-23] MEDS ORDERED: ALBUMIN 25% 12.5 GM/50 ML BOTTLE IV ONE (16:00)
[2022-07-23] MEDS ORDERED: ALBUMIN 25% 25 GM in PREMIX 1 EA IV ONE (16:00)
[2022-07-23] MEDS ORDERED: AMIODARONE HCL 200 MG TABLET PO SCH (17:00)
[2022-07-23 20:00] VITALS: BP 97/47
[2022-07-23] MEDS: METOPROLOL TARTRATE 50 MG TABLET PO SCH (21:00)
[2022-07-24] VITALS (7 sets, daily range): BP systolic 82–118; BP diastolic 42–56
[2022-07-24 07:02] LABS: BASOPHILS % (AUTO) 0.1 % (0.0-2.0); HEMATOCRIT 29 % (33-45); HEMOGLOBIN 9.3 g/dL (11.5-14.8); LYMPHOCYTES # (AUTO) 0.2 K/uL (0.8-4.8); LYMPHOCYTES % (AUTO) 5.2 % (20.0-44.0); MEAN CORPUSCULAR HGB CONC 32 g/dl (31.0-36.0); MEAN CORPUSCULAR VOLUME 75 fL (82-100); MONOCYTES # (AUTO) 0.3 K/uL (0.1-1.30); NEUTROPHILS # (AUTO) 4.1 K/uL (1.8-8.9); NEUTROPHILS % (AUTO) 88.7 % (43.0-81.0); PLATELET COUNT (AUTO) 87 K/uL (150-450); RED BLOOD CELL COUNT(AUTO) 3.87 MIL/uL (4.0-5.2); WHITE BLOOD COUNT (AUTO) 4.6 K/uL (4.3-11.0)
[2022-07-24 07:27] LABS: CREATININE 1.5 mg/dL (0.6-1.3); MAGNESIUM 2.3 mg/dL (1.8-2.4); PHOSPHORUS 2.9 mg/dL (2.5-4.9); POTASSIUM 4.5 mmol/L (3.5-5.1)
[2022-07-24] MEDS: BLOOD SUGAR DIAGNOSTIC 1 EACH STRIP VI SCH ×4 (07:30→22:38)
--- NOTE | 2022-07-24 07:33 | NUR ---
RN OPENING NOTE PATIENT RESTING IN BED A/O X 1. ON ROOM AIR WITH NO COMPLAINTS OF SOB OR SHOWING SIGNS OF DISTRESS. IV ACCESS ON LAC AND RIGHT HAND 22G RUNNING NS AT 90MLS/HR. SAFETY MEASURES IN CHECK PER HOSPITAL PROTOCOL.
[2022-07-24] MEDS: BENAZEPRIL HCL 20 MG TABLET PO SCH ×2 (09:00→16:24)
[2022-07-24] MEDS: CHOLECALCIFEROL 1,000 UNIT TABLET (VIT D3) PO SCH (09:20)
[2022-07-24] MEDS: GABAPENTIN 100 MG CAPSULE PO SCH ×4 (09:20→16:30)
[2022-07-24] MEDS: LEVOTHYROXINE SODIUM 25 MCG TABLET PO SCH (09:20)
[2022-07-24] MEDS: PANTOPRAZOLE 40 MG TABLET.DR PO SCH (09:20)
[2022-07-24] MEDS: LACTULOSE 10 G/15 ML UDC (PYXIS) PO SCH ×4 (09:20→16:30)
[2022-07-24] MEDS: ASCORBIC ACID 500 MG TABLET PO SCH (09:21)
[2022-07-24] MEDS: FERROUS SULFATE (325 MG) 325 MG/TAB TABLET PO SCH ×3 (09:21→16:30)
[2022-07-24] MEDS: ASPIRIN EC 81 MG TABLET.DR PO SCH (09:21)
[2022-07-24] MEDS: MAGNESIUM OXIDE 400 MG TABLET PO SCH ×4 (09:21→16:24)
[2022-07-24] MEDS: METOPROLOL TARTRATE 50 MG TABLET PO SCH ×2 (09:21→21:52)
[2022-07-24] MEDS: DULOXETINE HCL 30 MG CAPSULE.DR PO SCH (09:21)
[2022-07-24] MEDS: INSULIN GLARGINE, 100 UNIT/ML CARTRIDGE SQ SCH (10:33)
[2022-07-24] MEDS: HYDROMORPHONE 1 MG/1 ML DISP.SYRIN IV PRN (11:37)
[2022-07-24] MEDS: INSULIN REGULAR, HUMAN 100 UNIT/ML 3 ML VIAL SQ PRN ×2 (12:33→17:57)
--- NOTE | 2022-07-24 13:00 | NUR ---
RN NOTE PER DR KIRBY. HOLD MAG-OXIDE PO. CURRENT LEVEL 2.3.
[2022-07-24 17:31] LABS: BAND % (MANUAL) 3 % (0.0-5.0); LYMPHOCYTES % (MANUAL) 2 % (16-48); MONOCYTES % (MANUAL) 5 % (0-11.0); NEUTROPHILS % (MANUAL) 90 (42-76)
[2022-07-24] MEDS: IV NS 0.9% 1,000 ML IV PRN (17:57)
[2022-07-25 00:30] VITALS: BP 104/53
[2022-07-25] MEDS: ACETAMINOPHEN 325 MG TABLET PO PRN ×2 (01:03→22:15)
[2022-07-25 05:41] VITALS: BP 94/50
[2022-07-25 06:45] LABS: BASOPHILS % (AUTO) 0.1 % (0.0-2.0); HEMATOCRIT 31 % (33-45); HEMOGLOBIN 9.9 g/dL (11.5-14.8); LYMPHOCYTES # (AUTO) 0.3 K/uL (0.8-4.8); LYMPHOCYTES % (AUTO) 3.4 % (20.0-44.0); MEAN CORPUSCULAR HGB CONC 32 g/dl (31.0-36.0); MEAN CORPUSCULAR VOLUME 76 fL (82-100); MONOCYTES # (AUTO) 0.3 K/uL (0.1-1.30); MONOCYTES % (AUTO) 3.4 % (2.0-12.0); NEUTROPHILS % (AUTO) 93.1 % (43.0-81.0); PLATELET COUNT (AUTO) 84 K/uL (150-450); RED BLOOD CELL COUNT(AUTO) 4.03 MIL/uL (4.0-5.2); WHITE BLOOD COUNT (AUTO) 7.5 K/uL (4.3-11.0)
[2022-07-25] MEDS: LEVOTHYROXINE SODIUM 25 MCG TABLET PO SCH (06:50)
[2022-07-25] MEDS: BLOOD SUGAR DIAGNOSTIC 1 EACH STRIP VI SCH ×4 (06:50→21:46)
[2022-07-25] MEDS: PANTOPRAZOLE 40 MG TABLET.DR PO SCH (06:50)
[2022-07-25 07:13] LABS: ALBUMIN 1.7 g/dL (3.4-5.0); BILIRUBIN,DIRECT 1.9 mg/dL (0.0-0.2); BILIRUBIN,TOTAL 3.5 mg/dL (0.2-1.0); TOTAL PROTEIN, SERUM 5.4 g/dL (6.4-8.2)
--- NOTE | 2022-07-25 07:20 | NUR ---
RN notes Received patient in bed without any active complaint. Telemetry showed SR 86/min. No SOB noted. Right hand IV site is dry and intact with NS running at 90 mL/hr. Call vaca is placed within reach. Bed is locked and placed in the lowest position. All safety measures have been implemented. Will continue monitoring and care.
[2022-07-25 07:22] LABS: CALCIUM, SERUM 7.9 mg/dL (8.5-10.1); CREATININE 1.6 mg/dL (0.6-1.3); MAGNESIUM 2.5 mg/dL (1.8-2.4); PHOSPHORUS 3.1 mg/dL (2.5-4.9); POTASSIUM 4.8 mmol/L (3.5-5.1)
[2022-07-25 08:00] VITALS: BP 90/41
[2022-07-25] MEDS: GABAPENTIN 100 MG CAPSULE PO SCH ×3 (08:55→18:16)
[2022-07-25] MEDS: ASCORBIC ACID 500 MG TABLET PO SCH (08:55)
[2022-07-25] MEDS: DULOXETINE HCL 30 MG CAPSULE.DR PO SCH (08:56)
[2022-07-25] MEDS: ASPIRIN EC 81 MG TABLET.DR PO SCH (08:56)
[2022-07-25] MEDS: CHOLECALCIFEROL 1,000 UNIT TABLET (VIT D3) PO SCH (08:56)
[2022-07-25] MEDS: IV NS 0.9% 1,000 ML IV PRN ×2 (08:57→18:37)
[2022-07-25] MEDS: FERROUS SULFATE (325 MG) 325 MG/TAB TABLET PO SCH ×2 (09:00→18:16)
[2022-07-25] MEDS: METOPROLOL TARTRATE 50 MG TABLET PO SCH ×2 (09:00→21:00)
[2022-07-25] MEDS: INSULIN GLARGINE, 100 UNIT/ML CARTRIDGE SQ SCH (09:00)
[2022-07-25] MEDS: MAGNESIUM OXIDE 400 MG TABLET PO SCH ×3 (09:00→17:00)
[2022-07-25] MEDS: LACTULOSE 10 G/15 ML UDC (PYXIS) PO SCH ×3 (09:00→17:00)
[2022-07-25] MEDS: BENAZEPRIL HCL 20 MG TABLET PO SCH ×2 (09:00→18:16)
--- NOTE | 2022-07-25 09:50 | NUR ---
RN notes Patient has poor appetite and only had one sausage. Her blood glucose was 90mmol/L this morning. In view of poor oral intake and lower blood glucose, will hold insulin for now and confirm with doctor about administration. Consumed all the medications. However, after 30 minutes, patient vomited and also pulled out the IV line. Would monitor her vomiting status.
[2022-07-25 10:49] LABS: BAND % (MANUAL) 4 % (0.0-5.0); EOSINOPHILS % (MANUAL) 0 % (0-4); LYMPHOCYTES % (MANUAL) 3 % (16-48); MONOCYTES % (MANUAL) 1 % (0-11.0); NEUTROPHILS % (MANUAL) 92 (42-76)
--- NOTE | 2022-07-25 11:50 | NUR ---
RN notes Informed RESIDENCE HALL DIRECTOR Brett about patient's poor appetite and borderline glucose for glargine. The latest glucose is 83mmol/l. Will continue monitoring of glucose. Also informed RESIDENCE HALL DIRECTOR about patient's hypotension and witholding anti-hypertensives and metoprolol.
[2022-07-25 12:00] VITALS: BP 99/55
--- NOTE | 2022-07-25 12:43 | NUR ---
RN note - surgery preparation Received phone calls from OR nurse Ponce about witholding surgery for now with respect to low platelet count in patient. Further, type and screen has and we need to take another one. Architecture Department Chair ordered one unit of platelet to be infused in the OR. Will inform OR staff once we got the T&S and platelet ready note from lab staff. Will follow. Addendum: 07/25/22 at 1245 by AUGUSTO HEATON RN RN note Wrong entry.
[2022-07-25 16:00] VITALS: BP 107/77
--- NOTE | 2022-07-25 18:35 | NUR ---
RN notes Received patient in bed without any active complaint. Telemetry showed SR 93/min. No SOB noted. Left upper arm midline is dry and intact with NS running at 90 mL/hr. Blood glucose was 83 & 127mmol/L respectively at 1200 & 1800. Call vaca is placed within reach. Bed is locked and placed in the lowest position. All safety measures have been implemented. Will continue monitoring and care.
--- NOTE | 2022-07-25 21:39 | NUR ---
Blood pressure 100/45 heart rate 79, blood pressure medication held.
[2022-07-25] MEDS: ONDANSETRON HCL/PF 4 MG/2 ML VIAL IVP PRN (21:53)
[2022-07-25 22:31] VITALS: BP 100/45
[2022-07-26 01:06] VITALS: BP 109/54
[2022-07-26 04:19] VITALS: BP 122/58
[2022-07-26] MEDS: PANTOPRAZOLE 40 MG TABLET.DR PO SCH (06:51)
[2022-07-26] MEDS: BLOOD SUGAR DIAGNOSTIC 1 EACH STRIP VI SCH ×4 (06:51→22:23)
[2022-07-26] MEDS: LEVOTHYROXINE SODIUM 25 MCG TABLET PO SCH (06:51)
--- NOTE | 2022-07-26 07:43 | NUR ---
RN OPENING NOTE PATIENT RESTING IN BED A/O X 1.PT IS SINUS RHYTM ON TELE MONITOR CURRENTLY 94. NO COMPLAINTS OF PAIN OR DISCOMFORT AT THIS TIME. PT HAS IV ACCESS. RUNNING NORMAL SALINE @ 90ML/HR. ALL SAFETY MEASURES IN PLACE. CALL LIGHT WITHIN REACH. BED LOCKED AT LOWEST POSITION. SIDE RAILS UP X2. BED ALARM ON.
[2022-07-26 08:00] VITALS: BP 104/55
[2022-07-26] MEDS: BENAZEPRIL HCL 20 MG TABLET PO SCH ×2 (09:00→17:00)
[2022-07-26] MEDS: METOPROLOL TARTRATE 50 MG TABLET PO SCH ×2 (09:00→22:03)
[2022-07-26] MEDS: INSULIN GLARGINE, 100 UNIT/ML CARTRIDGE SQ SCH (09:00)
[2022-07-26] MEDS: MAGNESIUM OXIDE 400 MG TABLET PO SCH ×3 (09:00→16:50)
[2022-07-26] MEDS: FERROUS SULFATE (325 MG) 325 MG/TAB TABLET PO SCH ×3 (09:00→16:50)
--- NOTE | 2022-07-26 09:37 | NUR ---
rn note notified ge isidro that current blood sugar is 122, and lantus dose is 65 units, and pt has poor appetite and if ok to hold lantus. ncqa specialist said to hold
--- NOTE | 2022-07-26 09:38 | NUR ---
beena note pt magnesium oxide 2.5, and if he still wants to hold magnesium oxide. will follw up Addendum: 07/26/22 at 1442 by TIBURCIO MCDANIEL RN per ge hold magnesium oxide
[2022-07-26] MEDS: ASPIRIN EC 81 MG TABLET.DR PO SCH (09:44)
[2022-07-26] MEDS: LACTULOSE 10 G/15 ML UDC (PYXIS) PO SCH ×4 (09:44→17:00)
[2022-07-26] MEDS: DULOXETINE HCL 30 MG CAPSULE.DR PO SCH (09:45)
[2022-07-26] MEDS: ASCORBIC ACID 500 MG TABLET PO SCH (09:45)
[2022-07-26] MEDS: CHOLECALCIFEROL 1,000 UNIT TABLET (VIT D3) PO SCH (09:45)
[2022-07-26] MEDS: GABAPENTIN 100 MG CAPSULE PO SCH ×3 (09:48→17:00)
[2022-07-26] MEDS: ONDANSETRON HCL/PF 4 MG/2 ML VIAL IVP PRN ×2 (11:31→18:14)
[2022-07-26 12:00] VITALS: BP 123/70
[2022-07-26] MEDS ORDERED: IV NS 0.9% 1,000 ML IV ONE (12:30)
--- NOTE | 2022-07-26 12:33 | NUR ---
rn note auto transport driver dwaine aware that metoprolol is hold due to low auto transport driver and insulin coverage held for bs 131 due to poor appetite, and vomiting
[2022-07-26 13:01] LABS: BASOPHILS % (AUTO) 0.1 % (0.0-2.0); EOSINOPHILS % (AUTO) 0.6 % (0.0-6.0); HEMATOCRIT 30 % (33-45); HEMOGLOBIN 9.8 g/dL (11.5-14.8); LYMPHOCYTES # (AUTO) 0.1 K/uL (0.8-4.8); LYMPHOCYTES % (AUTO) 1.5 % (20.0-44.0); MEAN CORPUSCULAR HGB CONC 33 g/dl (31.0-36.0); MEAN CORPUSCULAR VOLUME 73 fL (82-100); MONOCYTES # (AUTO) 0.2 K/uL (0.1-1.30); MONOCYTES % (AUTO) 3.3 % (2.0-12.0); NEUTROPHILS # (AUTO) 6.1 K/uL (1.8-8.9); NEUTROPHILS % (AUTO) 94.5 % (43.0-81.0); PLATELET COUNT (AUTO) 82 K/uL (150-450); WHITE BLOOD COUNT (AUTO) 6.5 K/uL (4.3-11.0)
--- NOTE | 2022-07-26 13:05 | NUR ---
rn note notified geriatric physician dwaine if okay to hold lactulose and gabapentin for right now due to patient having another episode of vomiting. geriatric physician said okay to hold 1300 gabapentin not given due to pt vomiting. took out gabapentin opened up wrapper. discarded in med room waste container due to pt vomiting. returned lactulose in omnic[facility]
[2022-07-26 13:14] LABS: CALCIUM, SERUM 8.1 mg/dL (8.5-10.1); CREATININE 1.4 mg/dL (0.6-1.3); MAGNESIUM 2.5 mg/dL (1.8-2.4); PHOSPHORUS 3.3 mg/dL (2.5-4.9); POTASSIUM 4.3 mmol/L (3.5-5.1)
--- NOTE | 2022-07-26 14:23 | NUR ---
rn note pt is saying i have to kill myself. notified pnp dwaine ordered psych eval. at bedside examined pt and turned, repositioned comfortably done per dr. raphael main concern is repositioning
--- NOTE | 2022-07-26 14:57 | NUR ---
rn note notified piano teacher dwaine that pt threw up yellow discharge. zofran was given earlier and not due yet. ordered ct abdomen pelvis without contrast.
[2022-07-26 16:00] VITALS: BP 124/47
[2022-07-26] MEDS: ENSURE CLEAR 237 ML LIQUID (MIX BERRY) PO SCH (17:00)
[2022-07-26] MEDS: risperiDONE 0.25 MG TABLET PO SCH (17:09)
--- NOTE | 2022-07-26 17:20 | NUR ---
rn note pulled out risperdone, gave to patient. pt spit out the medication
--- NOTE | 2022-07-26 17:20 | NUR ---
rn note notified regulatory affairs specialist dwaine pt can't keep medication and if okay to hold 1700 medications. said ok to hold
[2022-07-26] MEDS: IV NS 0.9% 1,000 ML IV PRN (17:36)
--- NOTE | 2022-07-26 19:25 | NUR ---
RN CLOSING NOTE PATIENT RESTING IN BED A/O X 1.PT IS SINUS RHYTHM/SINUS TACHY ON TELE MONITOR. NO COMPLAINTS OF PAIN OR DISCOMFORT AT THIS TIME. PT HAS IV ACCESS. IV PATENT,INTACT, AND FLUSHING WELL.RUNNING NORMAL SALINE @ 90ML/HR. ALL SAFETY MEASURES IN PLACE. CALL LIGHT WITHIN REACH. BED LOCKED AT LOWEST POSITION. SIDE RAILS UP X2. BED ALARM ON. SON AT BEDSIDE. ENDORSED TO WEIGHMASTER RN FOR CONTINUITY OF CARE
--- NOTE | 2022-07-26 19:26 | NUR ---
RN NOTES: RECEIVED AWAKE ON BED, A/OX1 TO SELF ONLY, NEPALI, ABLE TO COMMUNICATE IN LITHUANIAN, ON TELE MONITOR ST WITH PVC -106, ON BED REST, NEHEMIAH ML PATENT WITH IVF OF NS AT 90 ML/HR, ENLARGE ABDOMEN-ASCITES,NON LABORED BREATHING ON O2 AT 2L/MIN, ABLE TO MAKE NEEDS KNOWN, SON PRESENT AT BED SIDE UPON ENDORSEMENT, MOTHER HAS VERY POOR APPETITE, SHE LOOKS WEAK, PALE ,NO SIGN OF ANY PAIN OR DISCOMFORT, PENDING PT EVAL AND F/U WITH CARDIOLOGY, FALL,SAFETY AND ASPIRATION PRECAUTION OBSERVED.ON CLOSE WATCH
[2022-07-26 20:00] VITALS: BP 109/62
--- NOTE | 2022-07-26 22:10 | NUR ---
RN NOTES: HAD BM WITH LARGE AMOUNT OF URINE OUTPUT, CLEAN AND CHANGE UTERINE PROLAPSE PROMINENT ON THE VAGINAL AREA, DRESSING CHANGE ON THE SACRAL AREA. KEPT CALL LIGHT WITHIN EASY REACH. SAFETY PRECAUTION OBSERVED.
[2022-07-27] VITALS: BP 95/55
--- NOTE | 2022-07-27 02:38 | NUR ---
RN NOTES: AWAKE IN BETWEEN, CHECK AT FREQUENT INTERVALS, ASKED IF SHE HAVE ANY PAIN, SHE VERBALIZED"NO PAIN, I CANT SLEEP" ASKED IF HE HAS DIFFICULTY IN BREATHING?SHE SAID "NO,IM OK".
[2022-07-27 04:00] VITALS: BP 97/58
[2022-07-27 04:18] LABS: BAND % (MANUAL) 5 % (0.0-5.0); BASOPHILS % (MANUAL) 0 % (0.0-2.0); EOSINOPHILS % (MANUAL) 0 % (0-4); LYMPHOCYTES % (MANUAL) 3 % (16-48); MONOCYTES % (MANUAL) 3 % (0-11.0); NEUTROPHILS % (MANUAL) 89 (42-76)
[2022-07-27] MEDS: IV NS 0.9% 1,000 ML IV PRN ×2 (05:25→23:37)
--- NOTE | 2022-07-27 05:25 | NUR ---
RN NOTES: IVF CONSUMED, NEW BOTTLE REPLACED, UNABLE TO SCAN, MANUALLY ENTERED THE BARCODE IN THE SYSTEM; NS AT 75 ML/HR STARTED.
--- NOTE | 2022-07-27 07:06 | NUR ---
RN NOTES: ASLEEP ADMINISTRATIVE LIAISON, CHANGE BRIEF, SHE URINATE LARGE AMOUNT 3X, N1 BM, NO COMPLAINTS OF PAIN, HER ABDOMEN IS STILL ENLARGE, REPOSITIONED, FOR LABS THIS MORNING, FOLLOW PT EVAL, FALL AND ASPIRATION PRECAUTION OBSERVED, SHE LOOKS WEAK DUE TO POOR ORAL INTAKE, TO BE GIVEN ENSURE DURING MEALS, ENDORSED FOR CONTINUITY OF CARE.
[2022-07-27] MEDS: BLOOD SUGAR DIAGNOSTIC 1 EACH STRIP VI SCH ×4 (07:30→22:16)
[2022-07-27 07:56] LABS: BASOPHILS % (AUTO) 0.5 % (0.0-2.0); HEMATOCRIT 28 % (33-45); LYMPHOCYTES # (AUTO) 0.2 K/uL (0.8-4.8); LYMPHOCYTES % (AUTO) 2.2 % (20.0-44.0); MEAN CORPUSCULAR HGB CONC 32 g/dl (31.0-36.0); MEAN CORPUSCULAR VOLUME 73 fL (82-100); MONOCYTES # (AUTO) 0.3 K/uL (0.1-1.30); MONOCYTES % (AUTO) 4.2 % (2.0-12.0); NEUTROPHILS # (AUTO) 7.3 K/uL (1.8-8.9); NEUTROPHILS % (AUTO) 93.1 % (43.0-81.0); PLATELET COUNT (AUTO) 102 K/uL (150-450); WHITE BLOOD COUNT (AUTO) 7.9 K/uL (4.3-11.0)
[2022-07-27] MEDS: ENSURE CLEAR 237 ML LIQUID (MIX BERRY) PO SCH ×2 (08:00→17:00)
[2022-07-27 08:14] LABS: CALCIUM, SERUM 7.4 mg/dL (8.5-10.1); CREATININE 1.2 mg/dL (0.6-1.3); MAGNESIUM 2.6 mg/dL (1.8-2.4); PHOSPHORUS 3.8 mg/dL (2.5-4.9); POTASSIUM 5.4 mmol/L (3.5-5.1)
[2022-07-27] MEDS: INSULIN GLARGINE, 100 UNIT/ML CARTRIDGE SQ SCH (09:00)
[2022-07-27 09:53] VITALS: BP 99/52
[2022-07-27] MEDS: BENAZEPRIL HCL 20 MG TABLET PO SCH ×2 (10:02→17:00)
[2022-07-27] MEDS: METOPROLOL TARTRATE 50 MG TABLET PO SCH ×2 (10:02→21:00)
[2022-07-27] MEDS: risperiDONE 0.25 MG TABLET PO SCH ×2 (10:03→17:43)
[2022-07-27] MEDS: FERROUS SULFATE (325 MG) 325 MG/TAB TABLET PO SCH ×2 (10:03→17:43)
[2022-07-27] MEDS: CHOLECALCIFEROL 1,000 UNIT TABLET (VIT D3) PO SCH (10:03)
[2022-07-27] MEDS: ASCORBIC ACID 500 MG TABLET PO SCH (10:03)
[2022-07-27] MEDS: GABAPENTIN 100 MG CAPSULE PO SCH ×3 (10:04→17:43)
[2022-07-27] MEDS: ASPIRIN EC 81 MG TABLET.DR PO SCH (10:04)
[2022-07-27] MEDS: LACTULOSE 10 G/15 ML UDC (PYXIS) PO SCH ×3 (10:04→17:58)
[2022-07-27] MEDS: MAGNESIUM OXIDE 400 MG TABLET PO SCH ×3 (10:04→17:44)
[2022-07-27] MEDS: PANTOPRAZOLE 40 MG TABLET.DR PO SCH (10:10)
[2022-07-27] MEDS: LEVOTHYROXINE SODIUM 25 MCG TABLET PO SCH (10:10)
[2022-07-27 15:23] LABS: LYMPHOCYTES % (MANUAL) 4 % (16-48); MONOCYTES % (MANUAL) 3 % (0-11.0); NEUTROPHILS % (MANUAL) 93 (42-76)
[2022-07-27 17:13] VITALS: BP 99/52
--- NOTE | 2022-07-27 17:34 | NUR ---
1710 Patient blood pressure 73/39, Map 50. (Temp 98.9 auxiliary, HR 66, RR 16). contacted. 1 liter NS Bolus was ordered via telephone read back. Bolus started. will continue to monitor. Addendum: 07/27/22 at 1859 by REGISTRY [facility] BRUCE MD informed that BP continues to be soft after 1 Liter bolus. BP 84/45 - Map 61, HR 69. Nurse awaiting response. Addendum: 07/27/22 at 1915 by REGISTRY [facility] B[facility] RN Another 500 ml bolus order via telephone read back. Bolus started.
[2022-07-27] MEDS ORDERED: IV NS 0.9% 1,000 ML IV ONE (18:00)
[2022-07-27 18:45] VITALS: BP 84/45
--- NOTE | 2022-07-27 19:20 | NUR ---
RN NOTES RECEIVED REPORT FROM FOOD AND NUTRITION SUPERVISOR. PATIENT IN BED DROWSY. ON NASAL CANULA AT 2LPM SATING 97%. WITH IV ACCESS AT NEHEMIAH MIDLINE PATENT FLUSHES WELL. WITH ONGOING BOLUS IV NS. BP IS 78/48. ALL SAFETY MEASURES IN PLACE. BED ON LOWEST POSITION AND LOCKED. WILL CLOSELY MONITOR THE PATIENT
--- NOTE | 2022-07-27 19:56 | NUR ---
RN NOTES PATIENT BP 81/40, HR 69, SAT 97% DR GORDON MADE AWARE.
[2022-07-27 20:00] VITALS: BP 85/39
--- NOTE | 2022-07-27 20:10 | NUR ---
RN NOTES DR GORDON CAME AND CHECK THE PATIENT WILL CLOSELY MONITOR THE PATIENT
[2022-07-27] MEDS: *INSULIN REGULAR(HUMULIN R)HUM 100 UNIT/ML VIAL SQ PRN (22:19)
--- NOTE | 2022-07-27 22:30 | NUR ---
RN NOTES NGT INSERTED AT ORDERED, STAT XRAY ORDERED FOR CONFIRMATION OF PLACEMENT.
--- NOTE | 2022-07-27 23:00 | NUR ---
RN NOTES RELAYED TO DR GORDON BP 77/39, HR 65 SAT 98%. PATIENT IS MORE LETHARGIC. WITH NEW ORDER TO STAT ABG. WILL CLOSELY MONITOR THE PATIENT
[2022-07-27 23:28] LABS: ABG BASE EXCESS -7.3 mmol/L; ABG OXYGEN SATURATION 96.5 % (92.0-98.5); ABG PCO2 26.7 mmHg (35.0-45.0); ABG PH 7.405 (7.350-7.450); ABG PO2 92.4 mmHg (75.0-100.0); AaDO2 75.7 mmHg; COHb 0.8 % (0.5-1.5); MetHb 0.2 % (0.0-1.5); O2Hb 95.5 % (94.0-97.0); SITE, ABG Left Radial
[2022-07-28] VITALS (113 sets, daily range): BP systolic 59–121; BP diastolic 35–64
--- NOTE | 2022-07-28 | NUR ---
RN NOTES TRANSFER PATIENT TO ICU.BEDSIDE REPORT GIVEN TO ICU STAFF. HOOKED TO NURSES AIDE.
--- NOTE | 2022-07-28 00:15 | NUR ---
ICU/YOUTH LEADER PT WAS TRANSFERED TO ICU FROM [facility] FOR LOW BP, PT WAS PLACED ON MONITOR. PT IS LETHARGIC. PLACED ON MONITOR. N/G TO LOW INTERMITTENT SUCTION WAS DONE, WITH POSITIVE PLACEMENT. WILL MONITOR THIS PT.
[2022-07-28] MEDS ORDERED: DOPamine 400 MG/D5W 250 ML RTU BAG IV PRN (00:30)
--- NOTE | 2022-07-28 00:40 | NUR ---
ICU/DRUM CARRIER DOPA WAS STARTED BY SPECIAL CRIMES INVESTIGATOR NURSE, HOWEVER IT DOESN'T SHOW UP ON THE IV SPREAD SHEET. CHARGE NURSE MADE AWARE.
--- NOTE | 2022-07-28 02:23 | NUR ---
ICU/PRINTING WORKER SUPERVISOR DOPA HAD TO BE INCREASED BY LITIGATION COORDINATOR NURSE FROM 5MCG/KG/MIN WHICH IS 16ML TO NOW 10MCG/KG.MIN. WILL CONTINUE TO MONITOR THIS PT.
[2022-07-28] MEDS: HYDROMORPHONE 1 MG/1 ML DISP.SYRIN IV PRN (02:49)
--- NOTE | 2022-07-28 03:00 | NUR ---
ICU/HAIRPIECE STYLIST PT WAS YELLING OUT IN PAIN, NOTIFED THE CHARGE NURSE WHO WAS ABLE TO GIVE PRN PAIN MEDICATION OF DILAUDID 1MG. PAIN IS RATED 10/10 TO THE LOWER LEGS. PT CAME IN S/P FALL, BUT NOTHING IS SEEN ON XRAY. WILL MONITOR THIS PT.
--- NOTE | 2022-07-28 05:00 | NUR ---
ICU/BATH STEWARD/STEWARDESS DOPA HAD TO BE INCREASED BY PROGRAM MANAGEMENT SPECIALIST NURSE FROM 10MCG/KG/MIN TO NOW 15MCG/KG.MIN. WILL CONTINUE TO MONITOR THIS PT.
[2022-07-28] MEDS: LEVOTHYROXINE SODIUM 25 MCG TABLET PO SCH (06:15)
[2022-07-28] MEDS: PANTOPRAZOLE 40 MG TABLET.DR PO SCH (06:15)
--- NOTE | 2022-07-28 06:17 | NUR ---
ICU/DADO OPERATOR PT IS NPO FOR N/G TUBE TO LOW INTERMITTENT SUCTION. PT IS LETHARGIC WITH THE POSSIBLITY OF ASPIRATION. HOLD THE 0730 MEDICATION PROTONIX AND SYNTHRIOD.
[2022-07-28] MEDS: BLOOD SUGAR DIAGNOSTIC 1 EACH STRIP VI SCH ×3 (07:30→13:39)
[2022-07-28] MEDS: ENSURE CLEAR 237 ML LIQUID (MIX BERRY) PO SCH ×2 (08:00→16:56)
--- NOTE | 2022-07-28 08:00 | NUR ---
RN NOTES RECEIVED PATIENT SLEEPING, NO ACUTE RESPIRATORY DISTRESS, HR- 112 SINUS, NGT INTACT CONNECTED WITH INTERMITTENT SUCTION , IV ACCESS ON NEHEMIAH MIDLINE INTACT INFUSING DOPAMINE 15MCG/KG/MIN, AND NS@90 ML/HR, ASSIST TURN AND REPOSTION Q 2 HR, HELD DUE MEDICATION BECAUSE OF NPO, PATIENT HAS DISTENDED ABDOMEN, T-100.2F, bs-126mg/dl. ASSIST TURN AND REPOSTION. WILL FOLLOW UP.
[2022-07-28] MEDS: DOPamine 400 MG in IV D5W 250 ML IV PRN ×2 (08:14→13:44)
[2022-07-28] MEDS: ASPIRIN EC 81 MG TABLET.DR PO SCH (08:31)
[2022-07-28] MEDS: METOPROLOL TARTRATE 50 MG TABLET PO SCH ×2 (08:32→21:00)
[2022-07-28] MEDS: BENAZEPRIL HCL 20 MG TABLET PO SCH ×2 (08:32→16:56)
[2022-07-28] MEDS: MAGNESIUM OXIDE 400 MG TABLET PO SCH ×3 (08:54→16:56)
[2022-07-28] MEDS: CHOLECALCIFEROL 1,000 UNIT TABLET (VIT D3) PO SCH (08:54)
[2022-07-28] MEDS: GABAPENTIN 100 MG CAPSULE PO SCH ×3 (08:54→16:56)
[2022-07-28] MEDS: risperiDONE 0.25 MG TABLET PO SCH ×2 (08:54→16:57)
[2022-07-28] MEDS: ASCORBIC ACID 500 MG TABLET PO SCH (08:54)
[2022-07-28] MEDS: LACTULOSE 10 G/15 ML UDC (PYXIS) PO SCH ×3 (08:55→16:56)
[2022-07-28] MEDS: FERROUS SULFATE (325 MG) 325 MG/TAB TABLET PO SCH ×2 (08:55→16:56)
[2022-07-28] MEDS: INSULIN GLARGINE, 100 UNIT/ML CARTRIDGE SQ SCH (09:00)
[2022-07-28] MEDS: IV NS 0.9% 1,000 ML IV PRN (09:51)
--- NOTE | 2022-07-28 12:33 | NUR ---
RN NOTES PATIENT UNABLE TO OPEN EYES, BS-152 MG/DL, NO URINE OUT, SUCTION MOUTH CARE DONE, SEEN PATIENT VIA SURGEON Dr GAGE, NO NEW ORDER AT THIS TIME. RUNNING DOPAMINE @15ML/HR, BP 94/55, HR-117, SON NEXT TO THE BED. KEEP HOB ELEVATED FOR ASPIRATION PRECAUTION, CALL LIGHT WITHIN TO REACH. WILL FOLLOW UP.
--- NOTE | 2022-07-28 13:00 | NUR ---
RN NOTES GET ORDER HOLDEN CATHETER INSERTION.
[2022-07-28] MEDS ORDERED: INSULIN REGULAR, HUMAN 100 UNIT/ML 3 ML VIAL SQ PRN (14:30)
[2022-07-28 15:55] LABS: BASOPHILS % (AUTO) 0.1 % (0.0-2.0); EOSINOPHILS % (AUTO) 0.1 % (0.0-6.0); HEMATOCRIT 35 % (33-45); HEMOGLOBIN 10.7 g/dL (11.5-14.8); LYMPHOCYTES # (AUTO) 0.3 K/uL (0.8-4.8); LYMPHOCYTES % (AUTO) 2.3 % (20.0-44.0); MEAN CORPUSCULAR HGB CONC 30 g/dl (31.0-36.0); MEAN CORPUSCULAR VOLUME 76 fL (82-100); MONOCYTES # (AUTO) 0.6 K/uL (0.1-1.30); NEUTROPHILS # (AUTO) 11.6 K/uL (1.8-8.9); NEUTROPHILS % (AUTO) 92.5 % (43.0-81.0); PLATELET COUNT (AUTO) 136 K/uL (150-450); RED BLOOD CELL COUNT(AUTO) 4.63 MIL/uL (4.0-5.2); WHITE BLOOD COUNT (AUTO) 12.5 K/uL (4.3-11.0)
[2022-07-28 16:01] LABS: CALCIUM, SERUM 7.4 mg/dL (8.5-10.1); CREATININE 1.9 mg/dL (0.6-1.3); POTASSIUM 5.3 mmol/L (3.5-5.1)
[2022-07-28 16:10] LABS: ALBUMIN 1.6 g/dL (3.4-5.0); BILIRUBIN,DIRECT 2.2 mg/dL (0.0-0.2); BILIRUBIN,TOTAL 3.5 mg/dL (0.2-1.0); MAGNESIUM 3.1 mg/dL (1.8-2.4); PHOSPHORUS 4.9 mg/dL (2.5-4.9); TOTAL PROTEIN, SERUM 5.7 g/dL (6.4-8.2)
--- NOTE | 2022-07-28 16:30 | NUR ---
RN NOTES NOTIFIED DR CASE ABOUT DECREASING PATIENT BP- 83/45, HR-117, AND GET NEW ORDER NEOSYNEPHRINE . ORDER TAKEN A ND CARRIED OUT.
[2022-07-28] MEDS: PHENYLEPHRINE 50 MG in IV NS 0.9% 245 ML IV PRN ×2 (16:48→22:45)
--- NOTE | 2022-07-28 18:00 | NUR ---
rn notes patient condition is critical bp 80/46, p-106, r-23, o2-91%, notified [place] APPRISE COUNSELOR and get new order Levophed , and picc line insertion. titrated up norsynephrine 2.5 mcg/kg/hr atb this time. Patients son sign consent for picc line insertion. house manager notified. BS-16mg/dl. will follow up.
[2022-07-28] MEDS: BLOOD SUGAR DIAGNOSTIC 1 EACH STRIP IN SCH ×2 (18:25→23:56)
[2022-07-28] MEDS: NOREPINEPHRINE 8 MG in IV NS 0.9% 242 ML IV PRN ×2 (18:27→22:45)
--- NOTE | 2022-07-28 19:10 | NUR ---
RN NOTES PATIENT CONDITION REMAIN CRITICAL O2-DROP 86%, GET ORDER STAT ABG, INCREASED LEVOPHED 0.5 PER PROTOCOL , RT NOTIFIED. FAMILY NEXT TO THE BED. ENDORSED ONCOMING NURSE MALVIN. ,
--- NOTE | 2022-07-28 19:15 | NUR ---
AUTOMATIC GLOVE TURNER AND FORMER PT NOTED TO BE LETHARGIC WITH EPISODES OF DESATURATION; ABG ORDERED; PLACED ON NRB BY RT. SON JOHNY AT BEDSIDE AND PLAN OF CARE WAS DISCUSSED WITH JOHNY AND INITIALLY HE AGREED FOR PT TO BE DNR/DNI HOWEVER SON BECAME VERY EMOTIONAL AND CHANGED HIS MIND AND WISHED FOR EVERYTHING TO BE DONE FOR PT.
[2022-07-28 19:40] LABS: ABG BASE EXCESS -14.5 mmol/L; ABG OXYGEN SATURATION 93.6 % (92.0-98.5); ABG PCO2 15.9 mmHg (35.0-45.0); ABG PH 7.354 (7.350-7.450); ABG PO2 71.8 mmHg (75.0-100.0); AaDO2 625.3 mmHg; COHb 0.6 % (0.5-1.5); MetHb 0.3 % (0.0-1.5); O2Hb 92.8 % (94.0-97.0); SITE, ABG Right Radial; VENT MODE, BG 100% NRB
[2022-07-28] MEDS ORDERED: Sodium Bicarbonate 100 MEQ in IV NS 0.9% 1,000 ML IV PRN (20:00)
--- NOTE | 2022-07-28 20:05 | NUR ---
CONTACT WORKER LITHOGRAPHY ABG RESULTS RELAYED TO MD WITH ORDER FOR BICARB DRIP
[2022-07-28] MEDS ORDERED: Sodium Bicarbonate 100 MEQ in IV 1/2NS 1000 ML 1,000 ML IV PRN (20:30)
[2022-07-28] MEDS ORDERED: CEFEPIME 1 GM in IV D5W 50 ML IV SCH (21:00)
[2022-07-28] MEDS ORDERED: CEFEPIME 1 GM VIAL ONE (21:01)
--- NOTE | 2022-07-28 21:15 | NUR ---
PORTER USED CAR LOT SON JOHNY GARNICA [phone] RETURNED TO ICU WITH RELATIVE HUAN [phone] AND SON AGREED FOR PT TO BE DNR/DNI; SON WISHES FOR ALL TREATMENT TO CONTINUE AT THIS TIME AND NO MORPHINE BE GIVEN SOT HAT PT MAY FULLY WAKE UP.
[2022-07-28] MEDS: HYDROCORTISONE SOD SUCCINATE 100 MG/2 ML VIAL IV SCH (21:30)
[2022-07-28] MEDS: IV NS 0.9% 250 ML IV PRN (22:46)
[2022-07-28] MEDS: DEXTROSE 50%-WATER 50 ML DISP.SYRIN IV PRN (23:37)
[2022-07-29] VITALS (97 sets, daily range): BP systolic 68–127; BP diastolic 19–79
[2022-07-29] MEDS: PHENYLEPHRINE 50 MG in IV NS 0.9% 245 ML IV PRN ×5 (00:17→13:08)
[2022-07-29] MEDS ORDERED: NOREPINEPHRINE 4 MG/4 ML AMPUL IV ONE ×2 (00:57→03:29)
[2022-07-29] MEDS: NOREPINEPHRINE 8 MG in IV NS 0.9% 242 ML IV PRN ×4 (01:03→16:28)
[2022-07-29] MEDS ORDERED: PHENYLEPHRINE 10 MG/ML VIAL ONE (02:50)
[2022-07-29 03:42] LABS: BAND % (MANUAL) 5 % (0.0-5.0); BASOPHILS % (MANUAL) 0 % (0.0-2.0); EOSINOPHILS % (MANUAL) 0 % (0-4); LYMPHOCYTES % (MANUAL) 3 % (16-48); MONOCYTES % (MANUAL) 6 % (0-11.0); NEUTROPHILS % (MANUAL) 86 (42-76)
[2022-07-29] MEDS: DEXTROSE 50%-WATER 50 ML DISP.SYRIN IV PRN ×2 (03:57→11:09)
--- NOTE | 2022-07-29 04:00 | NUR ---
PC NETWORK TECHNICIAN PT AGITATED WITH REPEATED EPISODES OF REMOVING NON REBREATHER PT ALSO PULLING AT NG TUBE; BSWR PLACED AT THIS TIME; DISCUSSION WAS HAD WITH FAMILY EARLIER REGARDING THE NEED FOR RESTRAINTS.
[2022-07-29] MEDS: HYDROCORTISONE SOD SUCCINATE 100 MG/2 ML VIAL IV SCH ×3 (04:35→21:09)
[2022-07-29 04:58] LABS: BASOPHILS % (AUTO) 0.1 % (0.0-2.0); EOSINOPHILS % (AUTO) 0.7 % (0.0-6.0); HEMATOCRIT 29 % (33-45); LYMPHOCYTES # (AUTO) 0.4 K/uL (0.8-4.8); MEAN CORPUSCULAR HGB CONC 31 g/dl (31.0-36.0); MEAN CORPUSCULAR VOLUME 75 fL (82-100); MONOCYTES % (AUTO) 2.7 % (2.0-12.0); NEUTROPHILS # (AUTO) 36.3 K/uL (1.8-8.9); NEUTROPHILS % (AUTO) 95.5 % (43.0-81.0); PLATELET COUNT (AUTO) 174 K/uL (150-450); RED BLOOD CELL COUNT(AUTO) 3.92 MIL/uL (4.0-5.2)
[2022-07-29 05:00] LABS: WHITE BLOOD COUNT (AUTO) 38.1 K/uL (4.3-11.0)
[2022-07-29] MEDS ORDERED: VANCOMYCIN 1 GM VIAL ONE (05:23)
[2022-07-29 05:27] LABS: BILIRUBIN,DIRECT 2.7 mg/dL (0.0-0.2); BILIRUBIN,TOTAL 4.3 mg/dL (0.2-1.0); CREATININE 2.6 mg/dL (0.6-1.3); MAGNESIUM 2.9 mg/dL (1.8-2.4); PHOSPHORUS 5.7 mg/dL (2.5-4.9); TOTAL PROTEIN, SERUM 4.7 g/dL (6.4-8.2)
[2022-07-29] MEDS: BLOOD SUGAR DIAGNOSTIC 1 EACH STRIP IN SCH ×3 (05:27→17:20)
[2022-07-29 05:44] LABS: ALBUMIN 1.3 g/dL (3.4-5.0)
[2022-07-29 05:58] LABS: ABG BASE EXCESS -19.6 mmol/L; ABG OXYGEN SATURATION 95.7 % (92.0-98.5); ABG PCO2 18.2 mmHg (35.0-45.0); ABG PH 7.184 (7.350-7.450); ABG PO2 94.7 mmHg (75.0-100.0); AaDO2 600.1 mmHg; COHb 0.2 % (0.5-1.5); MetHb 0.4 % (0.0-1.5); O2Hb 95.1 % (94.0-97.0); SITE, ABG Right Radial; VENT MODE, BG 100% NRB
[2022-07-29] MEDS ORDERED: VANCOMYCIN 1.25 GM in IV D5W 250 ML IV ONE (06:00)
--- NOTE | 2022-07-29 06:00 | NUR ---
ROTARY SLICING MACHINE OPERATOR PER COACH EVAN FOR PO2 94.7 ON ABG TAKE PT OFF NRB AND PLACE ON SIMPLE MASK; PLACED PT ON SIMPLE MASK HOWEVER PT DESATURATED AND PLACED BACK ON NRB.
[2022-07-29] MEDS ORDERED: Sodium Bicarbonate 100 MEQ in IV 1/2NS 1000 ML 1,000 ML IV SCH (07:00)
--- NOTE | 2022-07-29 07:10 | NUR ---
INSURANCE ACCOUNT MANAGER Bedside report taken from [facility] nurse Waleska BRUCE. pt awake, obtunded, nonverbal, incomprehensible sounds, restless, moves bue and ble 3/5 does not follow commands, ronan soft wrist restraints in place. perrla. pt on 15 L nonrebreather mask tolerating well, spo2 95%, ronan lung sounds clear/ diminished at bases. pt sinus tach on monitor, bue and ble pulses present. pt has ngt to low intermitent suction, pt NPO -no exceptions. pt has harmon, intact and draining. pt oliguric with concentrated cloudy urine. pt has wounds noted, see flow sheet. all lines traced. all drips verified. safety measures in place. will continue to monitor.
[2022-07-29] MEDS: PANTOPRAZOLE 40 MG TABLET.DR PO SCH (07:30)
[2022-07-29] MEDS: LEVOTHYROXINE SODIUM 25 MCG TABLET PO SCH (07:30)
[2022-07-29 08:00] LABS: BAND % (MANUAL) 22 % (0.0-5.0); LYMPHOCYTES % (MANUAL) 2 % (16-48); METAMYELOCYTES % 2 % (0-0); MONOCYTES % (MANUAL) 4 % (0-11.0); MYELOCYTES % 2 % (0-0); NEUTROPHILS % (MANUAL) 68 (42-76)
[2022-07-29] MEDS: ENSURE CLEAR 237 ML LIQUID (MIX BERRY) PO SCH ×2 (08:00→16:30)
[2022-07-29] MEDS ORDERED: Sodium Bicarbonate 100 MEQ in IV D5W 1,000 ML IV SCH (08:00)
[2022-07-29] MEDS: ASPIRIN EC 81 MG TABLET.DR PO SCH (08:02)
[2022-07-29] MEDS: FERROUS SULFATE (325 MG) 325 MG/TAB TABLET PO SCH ×2 (08:03→16:30)
[2022-07-29] MEDS: BENAZEPRIL HCL 20 MG TABLET PO SCH ×2 (08:03→16:30)
[2022-07-29] MEDS: LACTULOSE 10 G/15 ML UDC (PYXIS) PO SCH ×3 (08:03→16:30)
[2022-07-29] MEDS: METOPROLOL TARTRATE 50 MG TABLET PO SCH ×2 (08:03→21:00)
[2022-07-29] MEDS: GABAPENTIN 100 MG CAPSULE PO SCH ×3 (08:04→16:30)
[2022-07-29] MEDS: CHOLECALCIFEROL 1,000 UNIT TABLET (VIT D3) PO SCH (08:04)
[2022-07-29] MEDS: risperiDONE 0.25 MG TABLET PO SCH ×2 (08:04→16:31)
[2022-07-29] MEDS: ASCORBIC ACID 500 MG TABLET PO SCH (08:04)
[2022-07-29] MEDS: MAGNESIUM OXIDE 400 MG TABLET PO SCH ×3 (08:04→16:30)
--- NOTE | 2022-07-29 08:11 | NUR ---
PILOT SUPERVISOR Dr Bradshaw at bedside assessing pt and updated on pt status. md aware that pt on 15 L nonrebreather, pt tachypnic and slightly labored, pt DNR/DNI no interventions or new orders at this time.
--- NOTE | 2022-07-29 08:20 | NUR ---
ARTIFICIAL FLOWERS STARCHER Pt bathed and cleaned. linen change done. skin check done, large open wound noted on coccyx, with red/ purple discoloration, mepilex in place. wound care done. skin check done, no new wounds noted. pt tolerated well. vitals stable. will continue to monitor.
[2022-07-29] MEDS: Sodium Bicarbonate 100 MEQ in IV D5W 1,000 ML IV SCH ×2 (08:21→17:33)
--- NOTE | 2022-07-29 08:50 | NUR ---
LAUNDRY CLERK Dr Carter at bedside assessing pt and updated on pt status. md aware that pt on 15 L nonrebreather, pt tachypnic and slightly labored, pt DNR/DNI no interventions or new orders at this time
--- NOTE | 2022-07-29 12:26 | NUR ---
SPORTS EQUIPMENT REPAIRER Blood sugar recheck 112 after 250 ml D10 iv given. no other interventions at this time.
--- NOTE | 2022-07-29 16:21 | NUR ---
CARRIAGE SETTER Pt bathed and cleaned. linen change done. wound care and dressing change done per protocol. skin check done, no new wounds noted. pt tolerated well. vitals stable. will continue to monitor.
[2022-07-29] MEDS: PHENYLEPHRINE 100 MG in IV NS 0.9% 240 ML IV PRN (16:30)
--- NOTE | 2022-07-29 18:56 | NUR ---
TOUR SALES REPRESENTATIVE Bedside report given to [facility] nurse Willie BRUCE. pt obtunded difficult to arouse, pt on 15 L nonrebreather spo2 94%, pt has coarse lung sounds and is breathing with accessory muscles. all lines traced. all drips verified. pt clean and dry. safety meausures in place. no signs of acute distress at this time.
[2022-07-29] MEDS: NOREPINEPHRINE 32 MG in IV NS 0.9% 218 ML IV PRN (19:57)
[2022-07-29] MEDS ORDERED: CEFEPIME 1 GM in IV D5W 50 ML IV SCH (21:00)
[2022-07-30] VITALS (51 sets, daily range): BP systolic 83–112; BP diastolic 37–65
[2022-07-30] MEDS: PHENYLEPHRINE 100 MG in IV NS 0.9% 240 ML IV PRN ×2 (00:13→06:33)
[2022-07-30] MEDS: BLOOD SUGAR DIAGNOSTIC 1 EACH STRIP IN SCH ×3 (00:13→11:17)
[2022-07-30] MEDS: DEXTROSE 50%-WATER 50 ML DISP.SYRIN IV PRN ×3 (00:20→11:52)
--- NOTE | 2022-07-30 00:29 | NUR ---
ICU/RN: POC GLUCOSE 53. DEXTROSE 50% GIVEN PER PROTOCOL. WILL REASSESS.
--- NOTE | 2022-07-30 02:17 | NUR ---
RT NOTE NASOTRACHEAL SUCTION PERFORMED. LARGE THIN BROWN SECRETIONS NOTED. PT REMAINS ON 100% NONREBREATHER.
[2022-07-30] MEDS ORDERED: NOREPINEPHRINE 4 MG/4 ML AMPUL IV ONE (02:20)
[2022-07-30] MEDS ORDERED: VASOPRESSIN INJ 40 UNIT in IV NS 0.9% 38 ML IV PRN (03:00)
[2022-07-30 03:58] LABS: BASOPHILS # (AUTO) 0.4 K/uL (0.0-0.2); BASOPHILS % (AUTO) 0.6 % (0.0-2.0); EOSINOPHILS % (AUTO) 4.5 % (0.0-6.0); HEMATOCRIT 29 % (33-45); HEMOGLOBIN 8.3 g/dL (11.5-14.8); LYMPHOCYTES # (AUTO) 1.1 K/uL (0.8-4.8); LYMPHOCYTES % (AUTO) 1.9 % (20.0-44.0); MEAN CORPUSCULAR HGB CONC 29 g/dl (31.0-36.0); MEAN CORPUSCULAR VOLUME 80 fL (82-100); MONOCYTES # (AUTO) 1.1 K/uL (0.1-1.30); MONOCYTES % (AUTO) 1.9 % (2.0-12.0); NEUTROPHILS # (AUTO) 53.7 K/uL (1.8-8.9); NEUTROPHILS % (AUTO) 91.1 % (43.0-81.0); PLATELET COUNT (AUTO) 141 K/uL (150-450); RED BLOOD CELL COUNT(AUTO) 3.64 MIL/uL (4.0-5.2)
[2022-07-30] MEDS: NOREPINEPHRINE 32 MG in IV NS 0.9% 218 ML IV PRN ×2 (04:09→09:42)
[2022-07-30] MEDS ORDERED: VASOPRESSIN INJ 20 UNIT/ML VIAL ONE (04:12)
--- NOTE | 2022-07-30 04:15 | NUR ---
ICU/RN: THIRD VASOPRESSOR ADDED FOR BP SUPPORT.
[2022-07-30 04:25] LABS: BILIRUBIN,DIRECT 3.1 mg/dL (0.0-0.2); BILIRUBIN,TOTAL 5.4 mg/dL (0.2-1.0); CALCIUM, SERUM 6.6 mg/dL (8.5-10.1); CREATININE 2.9 mg/dL (0.6-1.3); TOTAL PROTEIN, SERUM 4.7 g/dL (6.4-8.2)
[2022-07-30 04:33] LABS: POTASSIUM 6.3 mmol/L (3.5-5.1)
[2022-07-30 04:34] LABS: ALBUMIN 1.4 g/dL (3.4-5.0); PHOSPHORUS 10.2 mg/dL (2.5-4.9)
[2022-07-30] MEDS: Sodium Bicarbonate 100 MEQ in IV D5W 1,000 ML IV SCH (05:03)
[2022-07-30] MEDS: HYDROCORTISONE SOD SUCCINATE 100 MG/2 ML VIAL IV SCH (05:04)
--- NOTE | 2022-07-30 07:04 | NUR ---
ICU/RN PT RECEIVED IN BED, OBTUNDED, NON-VERBAL. PT ON 15L O2 NRB SAT 96% ON BEDSIDE MONITOR. HOLDEN CATH IN PLACE. NGT IN PLACE ON LIS. LEFT UA PICC LINE IN PLACE RUNNING LEVOPHED AT 1MCG/KG/MIN, ZBIGNIEW AT 3MCG/KG/MIN AND VASO AT 0.03 UNITS/MIN, BP 102/50. BED LOCKED AND IN LOWEST POSITION, CALL LIGHT WITHIN REACH, 3 SIDE RAILS UP.
--- NOTE | 2022-07-30 07:23 | NUR ---
ICU/RN NGT ON LOW INTERMITTENT SUCTION. PT UNABLE TO RECEIVE PO MEDS AT THIS TIME DUE TO SMALL BOWEL ILEUS.
[2022-07-30] MEDS: LEVOTHYROXINE SODIUM 25 MCG TABLET PO SCH (07:30)
[2022-07-30] MEDS: PANTOPRAZOLE 40 MG TABLET.DR PO SCH (07:30)
[2022-07-30] MEDS: ENSURE CLEAR 237 ML LIQUID (MIX BERRY) PO SCH (07:33)
[2022-07-30] MEDS: MAGNESIUM OXIDE 400 MG TABLET PO SCH ×2 (08:03→12:11)
[2022-07-30] MEDS: GABAPENTIN 100 MG CAPSULE PO SCH ×2 (08:03→12:11)
[2022-07-30] MEDS: METOPROLOL TARTRATE 50 MG TABLET PO SCH (08:03)
[2022-07-30] MEDS: BENAZEPRIL HCL 20 MG TABLET PO SCH (08:03)
[2022-07-30] MEDS: LACTULOSE 10 G/15 ML UDC (PYXIS) PO SCH ×2 (08:03→12:11)
[2022-07-30] MEDS: ASPIRIN EC 81 MG TABLET.DR PO SCH (08:03)
[2022-07-30] MEDS: FERROUS SULFATE (325 MG) 325 MG/TAB TABLET PO SCH (08:03)
[2022-07-30] MEDS: CHOLECALCIFEROL 1,000 UNIT TABLET (VIT D3) PO SCH (08:04)
[2022-07-30] MEDS: ASCORBIC ACID 500 MG TABLET PO SCH (08:04)
[2022-07-30] MEDS: risperiDONE 0.25 MG TABLET PO SCH (08:04)
[2022-07-30] MEDS: IV NS 0.9% 250 ML IV PRN (08:08)
--- NOTE | 2022-07-30 08:33 | NUR ---
ICU/RN RAPID INFLUENZA SWAB COLLECTED AND SENT TO LAB
[2022-07-30 10:30] LABS: BAND % (MANUAL) 24 % (0.0-5.0); LYMPHOCYTES % (MANUAL) 5 % (16-48); MONOCYTES % (MANUAL) 4 % (0-11.0); NEUTROPHILS % (MANUAL) 67 (42-76)
--- NOTE | 2022-07-30 11:22 | NUR ---
ICU/RN SON JOHNY AT BEDSIDE. PT'S CONDITION EXPLAINED. JOHNY VERBALIZES UNDERSTANDING AND CONFIRMS PT WOULD NOT WANT TO BE INTUBATED OR RESUSCITATED.
--- NOTE | 2022-07-30 11:22 | NUR ---
ICU/RN SUGAR <10. D50 GIVEN.
--- NOTE | 2022-07-30 11:55 | NUR ---
ICU/RN SUGAR 66 AFTER D50 GIVEN. ANOTHER DOSE OF D50 ADMINISTERED.
--- NOTE | 2022-07-30 12:06 | NUR ---
ICU/RN PT'S CONDITION IS DETERIORATING. O2 SAT IN THE 60S, HR 55, BP 88/37 MAX ON 3 VASOPRESSORS. SON JOHNY CALLED, JOHNY STATED HE IS ON HIS WAY.
--- NOTE | 2022-07-30 12:26 | NUR ---
ICU/RN SON JOHNY AT BEDSIDE WITH PT. O2 SAT 41%, HR IN THE LOW 50S.
--- NOTE | 2022-07-30 12:48 | NUR ---
RN NOTE PT DNR/DNI STATUS. FOUND PT ASYSTOLIC, APNEIC, AREFLEXIVE. PRONOUNCED AT 1248
--- NOTE | 2022-07-30 13:07 | NUR ---
ICU/RN PT ASYSTOLE AT 1248. SON JOHNY AT BEDSIDE WITH PT. CHARGE NURSE NGA NOTIFIED. DR. GOLDSTEIN NOTIFIED.
--- NOTE | 2022-07-30 13:08 | NUR ---
ICU/RN [facility] NOTIFIED, TALKED TO STEPHANE.
[2022-07-30] MEDS ORDERED: SODIUM POLYSTYRENE SULF. PWD 15 GM UDC PO ONE (15:30)
[2022-07-30] MEDS ORDERED: CALCIUM ACETATE 667 MG CAP/TAB PO SCH (18:00)
[2022-07-30] MEDS ORDERED: VANCOMYCIN 1 GM in IV D5W 250ml IV SCH (18:00)
== END 2022-07-30 15:30 | DRG 441 ==
LOC: ER 16:47 → TRANSITION 07-22 01:04 → TELE 07-22 07:55 → TELE-TD 07-22 13:28 → TELE1 07-24 13:47 → ICU 07-28 00:01
PROVIDERS: ADMIT Nurse Practitioner Acute Care
PROC: 0W9G3ZZ Drainage of Peritoneal Cavity, Percutaneous Approach (ICD-10-PCS; principal; 2022-07-23)
PROC: 05HC33Z Insertion of Infusion Device into Left Basilic Vein, Percutaneous Approach (ICD-10-PCS; 2022-07-25)
PROC: 02HV33Z Insertion of Infusion Device into Superior Vena Cava, Percutaneous Approach (ICD-10-PCS; 2022-07-28)
PROC: B548ZZA Ultrasonography of Superior Vena Cava, Guidance (ICD-10-PCS; 2022-07-28)
DX: K76.82 Hepatic encephalopathy (principal); A41.9 Sepsis, unspecified organism; G92.8 Other toxic encephalopathy; N17.0 Acute kidney failure with tubular necrosis; R65.21 Severe sepsis with septic shock; J18.9 Pneumonia, unspecified organism; J81.0 Acute pulmonary edema; K65.2 Spontaneous bacterial peritonitis; J96.92 Respiratory failure, unspecified with hypercapnia; J96.91 Respiratory failure, unspecified with hypoxia; K76.7 Hepatorenal syndrome; E44.0 Moderate protein-calorie malnutrition; R18.8 Other ascites; K76.6 Portal hypertension; I85.10 Secondary esophageal varices without bleeding; E72.20 Disorder of urea cycle metabolism, unspecified; E87.1 Hypo-osmolality and hyponatremia; K56.7 Ileus, unspecified; R45.851 Suicidal ideations; E87.4 Mixed disorder of acid-base balance; Y92.003 Bedroom of unspecified non-institutional (private) residence as the place of occurrence of the external cause; R57.1 Hypovolemic shock; Z66 Do not resuscitate; K74.60 Unspecified cirrhosis of liver; Z20.822 Contact with and (suspected) exposure to COVID-19; Z90.49 Acquired absence of other specified parts of digestive tract; Z79.83 Long term (current) use of bisphosphonates; Z79.4 Long term (current) use of insulin; Z79.82 Long term (current) use of aspirin; Z79.899 Other long term (current) drug therapy; D69.6 Thrombocytopenia, unspecified; E03.9 Hypothyroidism, unspecified; E78.5 Hyperlipidemia, unspecified; E11.622 Type 2 diabetes mellitus with other skin ulcer; E11.40 Type 2 diabetes mellitus with diabetic neuropathy, unspecified; I50.9 Heart failure, unspecified; I11.0 Hypertensive heart disease with heart failure; I48.0 Paroxysmal atrial fibrillation; L98.499 Non-pressure chronic ulcer of skin of other sites with unspecified severity; M81.0 Age-related osteoporosis without current pathological fracture; Z68.32 Body mass index [BMI] 32.0-32.9, adult; E66.9 Obesity, unspecified; Z87.19 Personal history of other diseases of the digestive system; I25.10 Atherosclerotic heart disease of native coronary artery without angina pectoris; E88.09 Other disorders of plasma-protein metabolism, not elsewhere classified; E80.6 Other disorders of bilirubin metabolism; E11.65 Type 2 diabetes mellitus with hyperglycemia; D63.8 Anemia in other chronic diseases classified elsewhere; F29 Unspecified psychosis not due to a substance or known physiological condition; Y95 Nosocomial condition; Z79.84 Long term (current) use of oral hypoglycemic drugs; N81.10 Cystocele, unspecified; D25.2 Subserosal leiomyoma of uterus; W06.XXXA Fall from bed, initial encounter
CPT/HCPCS: 36410; 36415; 36600; 70450-TC; 71045-TC; 72131-TC; 73552; 73564-TC; 73700-TC; 76942-TC; 80048-TC; 80053-TC; 80076-TC; 80202-TC; 81001; 82140-TC; 82533; 82803-TC; 82962-TC; 83735-TC; 84100-TC; 85025-TC; 85610-TC; 85730-TC; 86704; 86803; 87040-TC; 87081-TC; 87340; 87806; 94799-TC; 97112-TC; 97530-TC; A4216; C9113; C9803; G0378; J0282; J0692; J1170; J1265; J1720; J1815; J2060; J2370; J2405; J3370; J3490; J7030; J7050; J7060; J7070; P9047